=== PATIENT | female | born 1985 | race Caucasian/White ===

== ENCOUNTER 2017-01-08 13:40 | Emergency (ER) | payer MEDICARE, MEDICAID ==
[2017-01-08] MEDS ORDERED: Ketorolac 60 MG/2 ML SDV IM ONE (14:51)
--- NOTE | 2017-01-08 14:57 | EDM.PDOC ---
ED HPI GENERAL MEDICAL PROBLEM - General Chief Complaint: Upper Extremity Injury/Pain Stated Complaint: LEFT SHOULDER PAIN Time Seen by Provider: 01/08/17 14:40 Source of Information: Reports: Patient History Limitations: Reports: No Limitations - History of Present Illness INITIAL COMMENTS - FREE TEXT/NARRATIVE: Kenny presents today for complaints of uncontrolled pain of her left clavicle fracture. She states she ran out of her hydrocodone for pain. She states she took 2 hydrocodone every 4 hours and ran out of pills. She also states she had some hydrocodone left over from when she shattered her leg and took some of that. She denies numbness, tingling to the left shoulder or arm. 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 DRESSING MAKER: Reports: Other (see below) Other Treatments SURGICAL DRESSING MAKER: Sling Left arm Left Shoulder Pain Score (Numeric/FACES): 7 - Related Data Allergies Allergy/AdvReac Type Severity Reaction Status Date / Time bupropion [From Wellbutrin] Allergy Seizure Verified 01/08/17 14:07 paroxetine [From Paxil] Allergy Confusion Verified 01/08/17 14:07 pramipexole [From Mirapex] Allergy Rash Verified 01/08/17 14:07 quetiapine [From Seroquel] Allergy Tachycardia Verified 01/08/17 14:07 venlafaxine [From Effexor] Allergy Cannot Verified 01/08/17 14:07 Remember Home Meds: Home Meds Calcium Carbonate [Calcium] 1 tab PO DAILY 01/08/17 [History] Cholecalciferol (Vitamin D3) [Vitamin D3] 1 cap PO DAILY 01/08/17 [History] ClonazePAM [KlonoPIN] 1 tab PO QID PRN 01/08/17 [History] Cyanocobalamin (Vitamin B-12) [Vitamin B-12] 1 ml IM ASDIRECTED 01/08/17 [ History] Eszopiclone [Lunesta] 1 tab PO BEDTIME 01/08/17 [History] FLUoxetine HCl [Prozac] 60 mg PO BEDTIME 01/08/17 [History] Gabapentin [Neurontin] 300 mg PO BID 01/08/17 [History] Gabapentin [Neurontin] 600 mg PO BEDTIME 01/08/17 [History] Ondansetron [Zofran ODT] 1 tab PO Q12H 01/08/17 [History] Spironolactone [Aldactone] 1 tab PO DAILY 01/08/17 [History] Topiramate [Topamax] 50 mg PO BID 01/08/17 [History] lamoTRIgine [Lamictal] 200 mg PO BID 01/08/17 [History] metFORMIN [Glucophage] 1,000 mg PO BIDMEALS 01/08/17 [History] Past Medical History Gastrointestinal History: Reports: PUD 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 GI Surgical History: Reports: Bariatric Procedure, Cholecystectomy, Hernia Repair/Other, Other (See Below) Other GI Surgeries/Procedures: perforated bowel surgery from ulcers, panniculectomy with revision x 2. Musculoskeletal Surgical History: Reports: Other (See Below) Other Musculoskeletal Surgeries/Procedures:: "rods in Left leg", left hand surgery, 5 foot surgeries d/t flat feet. Social & Family History - Tobacco Use Smoking Status *Q: Former Smoker Used Tobacco, but Quit: Yes Month Tobacco Last Used: october 2016 - Recreational Drug Use Recreational Drug Use: No Review of Systems - Review of Systems Review Of Systems: See Below Constitutional: Reports: No Symptoms Eyes: Reports: No Symptoms Ears: Reports: No Symptoms Nose: Reports: No Symptoms Mouth/Throat: Reports: No Symptoms Respiratory: Denies: Shortness of Breath, Wheezing, Cough, Sputum Cardiovascular: Reports: No Symptoms GI/Abdominal: Reports: No Symptoms Musculoskeletal: Reports: Arm Pain, Other (left shoulder, clavicle pain. Known left clavicle fracture. ) Skin: Reports: No Symptoms Neurological: Reports: No Symptoms Psychiatric: Reports: No Symptoms ED EXAM, GENERAL - Physical Exam Exam: See Below Free Text/Narrative:: Kenny is an alert and oriented 31 year old female presenting today for complaints of pain to left clavicle fracture and not having any more pain medication. General Appearance: Alert, WD/WN, No Apparent Distress Eye Exam: Bilateral Eye: EOMI, Normal Inspection, PERRL Ears: Normal External Exam, Normal Canal, Hearing Grossly Normal, Normal TMs Ear Exam: Bilateral Ear: Auricle Normal, Canal Normal, TM normal Throat/Mouth: Normal Inspection, Normal Lips, Normal Oropharynx, Normal Voice, No Airway Compromise Head: Atraumatic, Normocephalic Neck: Normal Inspection, Supple, Non-Tender, Full Range of Motion. No: Lymphadenopathy (R), Lymphadenopathy (L) Respiratory/Chest: No Respiratory Distress, Lungs Clear, Normal Breath Sounds, No Accessory Muscle Use, Chest Non-Tender Cardiovascular: Normal Peripheral Pulses, Regular Rate, Rhythm, No Edema, No Murmur Peripheral Pulses: 2+: Radial (L), Radial (R) Back Exam: Normal Inspection, Full Range of Motion. No: CVA Tenderness (R), CVA Tenderness (L) Extremities: Normal Inspection, No Pedal Edema, Normal Capillary Refill, Other ( Some tenderness to left clavicle and shoulder, no deformity noted, sensation intact. Patient able to remove sweatshirt unassisted without pain. ) Neurological: Alert, Oriented, CN II-XII Intact, Normal Cognition, Normal Gait, Normal Reflexes, No Motor/Sensory Deficits Psychiatric: Normal Affect, Normal Mood Skin Exam: Warm, Dry, Intact, Normal Color, No Rash Lymphatic: No Adenopathy Course - Vital Signs Last Recorded V/S: Last Vital Signs Temp 36.8 C 01/08/17 14:08 Pulse 109 H 01/08/17 14:08 Resp 16 01/08/17 14:08 BP 137/85 01/08/17 14:08 Pulse Ox 97 01/08/17 14:08 - Orders/Labs/Meds Meds: Medications Discontinued Medications Generic Name Dose Route Start Last Admin Trade Name Freq PRN Reason Stop Dose Admin Ketorolac Tromethamine 60 mg 01/08/17 14:51 01/08/17 15:06 Toradol IM 01/08/17 14:52 60 mg ONETIME ONE Administration - Re-Assessments/Exams Free Text/Narrative Re-Assessment/Exam: 01/08/17 15:00 Reviewed patient's medication list with her as well as appropriate use of hydrocodone for acute pain. She was informed that it is not safe for her to take an opiate medication with her current medications due to risk of respiratory depression and increase of fall risk. Patient verbalizes understanding. Departure - Departure Time of Disposition: 15:14 Disposition: Home, Self-Care 01 Condition: Good Clinical Impression: Shoulder pain, left, History of fracture of clavicle - Discharge Information Instructions: Shoulder Pain Referrals: Ioana Torres MEDICAL CARE EVALUATION SPECIALIST [Primary Care Provider] - Forms: ED Department Discharge Additional Instructions: You are suffering from left shoulder pain with a history of left clavicle fracture that occurred on 12/30/2016. It is not safe for you to have more opiate pain medication due to the current use of clonazepam and lunesta. Use of further opiates puts you at a significant risk for falls, further injury and difficulty breathing. You have been given Toradol 60mg as a muscle injection for the pain. It is best for you to use acetaminophen (tylenol) 1000mg by mouth three times a day and naproxen 500mg twice per day with food. Use of ice, sling and pillows for your comfort. Follow up with your primary care provider for concerns. Return to the emergency room for loss of arm function, numbness or concerns. - Assessment/Plan Assessment:: Shoulder pain History of clavicle fracture - left [place] [employer] accessed, appropriate per patient verbalized use. Plan: Patient suffering from left shoulder pain with a history of left clavicle fracture that occurred on 12/30/2016. It is not safe for her to have more opiate pain medication due to the current use of clonazepam and lunesta. Use of further opiates puts her at a significant risk for falls, further injury and difficulty breathing. She has been given Toradol 60mg IM for the pain. It is best for her to use acetaminophen (tylenol) 1000mg by mouth three times a day and naproxen 500mg twice per day with food. Use of ice, sling and pillows for comfort. Follow up with her primary care provider for concerns. Return to the emergency room for loss of arm function, numbness or concerns. Patient instructed to keep appointment with [facility] on 01/14/2017.
== END 2017-01-08 15:24 | disposition home or self-care (01) ==
LOC: JP.ED 13:40
DX: M25.512 Pain in left shoulder (principal); Z87.81 Personal history of (healed) traumatic fracture; Z79.899 Other long term (current) drug therapy; Z87.891 Personal history of nicotine dependence; Z88.8 Allergy status to other drugs, medicaments and biological substances
CPT/HCPCS: 96372; 99283; J1885

== ENCOUNTER 2017-03-13 09:55 | Inpatient (IN) | payer MEDICARE, MEDICAID ==
[2017-03-13] MEDS ORDERED: Ondansetron 4 MG/2 ML SDV IVPUSH ONE ×2 (10:08→13:15)
[2017-03-13] MEDS ORDERED: Sodium Chloride 0.9% 1,000 ML IV SCH ×3 (10:15→13:00)
--- NOTE | 2017-03-13 10:17 | EDM.PDOC ---
ED HPI GENERAL MEDICAL PROBLEM - General Chief Complaint: Chemical Exposure Stated Complaint: MEDICAL VIA [facility] Time Seen by Provider: 03/13/17 10:10 Source of Information: Reports: Patient, EMS Notes Reviewed History Limitations: Reports: No Limitations - History of Present Illness INITIAL COMMENTS - FREE TEXT/NARRATIVE: pt arrived with a history of drinking hand santizer, body sprays and mouth wash. She is confused and obviously intoxicated. Onset: Today Duration: Hour(s): Location: Reports: Head, Other (pt is vomiting and she is quite confused. ) Associated Symptoms: Reports: Weakness, Other (confusion) - Related Data Allergies Allergy/AdvReac Type Severity Reaction Status Date / Time bupropion [From Wellbutrin] Allergy Seizure Verified 01/08/17 14:07 paroxetine [From Paxil] Allergy Confusion Verified 01/08/17 14:07 pramipexole [From Mirapex] Allergy Rash Verified 01/08/17 14:07 quetiapine [From Seroquel] Allergy Tachycardia Verified 01/08/17 14:07 venlafaxine [From Effexor] Allergy Cannot Verified 01/08/17 14:07 Remember Home Meds: Home Meds Calcium Carbonate [Calcium] 1 tab PO DAILY 01/08/17 [History] Cholecalciferol (Vitamin D3) [Vitamin D3] 1 cap PO DAILY 01/08/17 [History] ClonazePAM [KlonoPIN] 1 tab PO QID PRN 01/08/17 [History] Cyanocobalamin (Vitamin B-12) [Vitamin B-12] 1 ml IM ASDIRECTED 01/08/17 [ History] Eszopiclone [Lunesta] 1 tab PO BEDTIME 01/08/17 [History] FLUoxetine HCl [Prozac] 60 mg PO BEDTIME 01/08/17 [History] Gabapentin [Neurontin] 300 mg PO BID 01/08/17 [History] Gabapentin [Neurontin] 600 mg PO BEDTIME 01/08/17 [History] Ondansetron [Zofran ODT] 1 tab PO Q12H 01/08/17 [History] Spironolactone [Aldactone] 1 tab PO DAILY 01/08/17 [History] Topiramate [Topamax] 50 mg PO BID 01/08/17 [History] lamoTRIgine [Lamictal] 200 mg PO BID 01/08/17 [History] metFORMIN [Glucophage] 1,000 mg PO BIDMEALS 01/08/17 [History] Past Medical History Gastrointestinal History: Reports: PUD 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 GI Surgical History: Reports: Bariatric Procedure, Cholecystectomy, Hernia Repair/Other, Other (See Below) Other GI Surgeries/Procedures: perforated bowel surgery from ulcers, panniculectomy with revision x 2. Musculoskeletal Surgical History: Reports: Other (See Below) Other Musculoskeletal Surgeries/Procedures:: "rods in Left leg", left hand surgery, 5 foot surgeries d/t flat feet. Social & Family History - Tobacco Use Smoking Status *Q: Former Smoker Used Tobacco, but Quit: Yes Month Tobacco Last Used: october 2016 - Recreational Drug Use Recreational Drug Use: No ED ROS GENERAL - Review of Systems Review Of Systems: See Below Constitutional: Reports: No Symptoms HEENT: Reports: No Symptoms Respiratory: Reports: No Symptoms Cardiovascular: Reports: No Symptoms Endocrine: Reports: No Symptoms GI/Abdominal: Reports: No Symptoms : Reports: No Symptoms Musculoskeletal: Reports: No Symptoms Skin: Reports: No Symptoms Neurological: Reports: Confusion, Other (pt does appear intoxicated. ) Psychiatric: Reports: Other (pt is very obtunded and we are not able to get a good history. ) ED EXAM, BURN/SMOKE INHALATION - Physical Exam Exam: See Below Text/Narrative:: pt arrived with a history of being quite confused. 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 Pt was somewhat obtunded at first but then she became agitated. She has been bolused with 2 liters of fluid and is on her third. Her lactic acid was elevated and after hydration that was checked and it did rise. Exam Limited By: No Limitations General Appearance: Alert, Anxious, Other (pt was very agitated. ) Ears (Abbreviated): Normal TMs Mouth/Throat: No Symptoms Reported Head: No Symptoms Neck: No Symptoms Respiratory: No Respiratory Distress Cardiovascular: Regular Rate, Rhythm, Tachycardia GI/Abdominal: Soft, Non-Tender Rectal Exam: Deferred Back Exam: Normal Inspection Extremities: Normal Inspection Neurological: Alert, Oriented, Normal Cognition Psychiatric: Anxious, Other (pt hs been very anxious. ) Course - Vital Signs Last Recorded V/S: Last Vital Signs Temp 36.1 C 03/13/17 10:13 Pulse 70 03/13/17 11:05 Resp 16 03/13/17 11:05 BP 113/71 03/13/17 11:05 Pulse Ox 96 03/13/17 11:05 - Orders/Labs/Meds Orders: Active Orders 24 hr Category Date Time Status HCG QUALITATIVE,URINE [URCHEM] Stat Lab 03/13/17 13:18 Uncollected Magnesium Sulfate/Water [Magnesium Sulfate 2 GM in Med 03/13/17 11:30 Active Water 50 ML] 2 gm Premix Bag 1 bag IV Q6H Sodium Chloride 0.9% [Normal Saline] 1,000 ml Med 03/13/17 10:15 Active IV ASDIRECTED Sodium Chloride 0.9% [Normal Saline] 1,000 ml Med 03/13/17 11:30 Active IV ASDIRECTED Sodium Chloride 0.9% [Normal Saline] 1,000 ml Med 03/13/17 13:00 Active IV ASDIRECTED Medication Orders Sodium Chloride (Normal Saline) 1,000 mls @ 999 mls/hr IV ASDIRECTED CORINE Last Admin: 03/13/17 10:46 Dose: 999 mls/hr Magnesium Sulfate 2 gm/ Premix 50 mls @ 25 mls/hr IV Q6H [facility] Stop: 03/13/17 19:29 Last Admin: 03/13/17 11:19 Dose: 25 mls/hr Sodium Chloride (Normal Saline) 1,000 mls @ 999 mls/hr IV ASDIRECTED CORINE Last Admin: 03/13/17 12:02 Dose: 999 mls/hr Sodium Chloride (Normal Saline) 1,000 mls @ 500 mls/hr IV ASDIRECTED CORINE Labs: Laboratory Tests 03/13/17 03/13/17 03/13/17 Range/Units 10:10 10:15 10:15 WBC 12.3 H (4.5-11.0) K/uL RBC 4.45 (3.30-5.50) M/uL Hgb 13.8 (12.0-15.0) g/dL Hct 40.1 (36.0-48.0) % MCV 90 (80-98) fL MCH 31 (27-31) pg MCHC 34 (32-36) % Plt Count 261 (150-400) K/uL Neut % (Auto) 81 H (36-66) % Lymph % (Auto) 15 L (24-44) % [place] % (Auto) 4 (2-6) % Eos % (Auto) 0 L (2-4) % Baso % (Auto) 0 (0-1) % Puncture Site ABG pH (7.350-7.450) ABG pCO2 (35.0-42.0) mmHg ABG pO2 (75.0-100.0) mmHg ABG HCO3 (22.0-26.0) mmol/L ABG Total CO2 (21.0-25.0) mmol/L ABG O2 Saturation (95.0-98.0) % ABG O2 Content (15.0-23.0) %vol ABG Base Excess mm/L ABG Hemoglobin (12.0-16.0) g/dL ABG Oxyhemoglobin % ABG Carboxyhemoglobin (0.0-1.6) % ABG Methemoglobin % [place] Test O2 Delivery Device Sodium (140-148) mmol/L Potassium (3.6-5.2) mmol/L Chloride (100-108) mmol/L Carbon Dioxide (21-32) mmol/L Anion Gap (5.0-14.0) mmol/L BUN (7-18) mg/dL Creatinine (0.6-1.0) mg/dL Est Cr Clr Drug Dosing mL/min Estimated GFR (MDRD) (>60) Glucose (74-106) mg/dL Lactic Acid (0.4-2.0) mmol/L Calcium (8.5-10.1) mg/dL Magnesium 1.5 L (1.8-2.4) mg/dL Total Bilirubin (0.2-1.0) mg/dL AST (15-37) U/L ALT (12-78) U/L Alkaline Phosphatase (46-116) U/L Total Protein (6.4-8.2) g/dL Albumin (3.4-5.0) g/dL Globulin (2.3-3.5) g/dL Albumin/Globulin Ratio (1.2-2.2) Urine Color Urine Appearance Urine pH (4.5-8.0) Ur Specific [place]gan (1.008-1.030) Urine Protein (NEGATIVE) mg/dL Urine Glucose (UA) (NEGATIVE) mg/dL Urine Ketones (NEGATIVE) mg/dL Urine Occult Blood (NEGATIVE) Urine Nitrite (NEGATIVE) Urine Bilirubin (NEGATIVE) Urine Urobilinogen (NORMAL) mg/dL Ur Leukocyte Esterase (NEGATIVE) Urine RBC (0-5) Urine WBC (0-5) Ur Epithelial Cells Amorphous Sediment Urine Bacteria Urine Mucus Urine Opiates Screen (NEGATIVE) Ur Oxycodone Screen (NEGATIVE) Urine Methadone Screen (NEGATIVE) Ur Propoxyphene Screen (NEGATIVE) Ur Barbiturates Screen (NEGATIVE) Ur Tricyclics Screen (NEGATIVE) Ur Phencyclidine Scrn (NEGATIVE) Ur Amphetamine Screen (NEGATIVE) U Methamphetamines Scrn (NEGATIVE) Urine MDMA Screen (NEGATIVE) U Benzodiazepines Scrn (NEGATIVE) U Cocaine Metab Screen (NEGATIVE) U Marijuana (THC) Screen (NEGATIVE) Ethyl Alcohol 285 mg/dL 03/13/17 03/13/17 03/13/17 Range/Units 10:15 11:25 11:25 WBC (4.5-11.0) K/uL RBC (3.30-5.50) M/uL Hgb (12.0-15.0) g/dL Hct (36.0-48.0) % MCV (80-98) fL MCH (27-31) pg MCHC (32-36) % Plt Count (150-400) K/uL Neut % (Auto) (36-66) % Lymph % (Auto) (24-44) % [place] % (Auto) (2-6) % Eos % (Auto) (2-4) % Baso % (Auto) (0-1) % Puncture Site Rt radial ABG pH 7.384 (7.350-7.450) ABG pCO2 27.7 L (35.0-42.0) mmHg ABG pO2 88.3 (75.0-100.0) mmHg ABG HCO3 16.2 L (22.0-26.0) mmol/L ABG Total CO2 14.5 L (21.0-25.0) mmol/L ABG O2 Saturation 95.2 (95.0-98.0) % ABG O2 Content 17.0 (15.0-23.0) %vol ABG Base Excess -7.2 mm/L ABG Hemoglobin 12.8 (12.0-16.0) g/dL ABG Oxyhemoglobin 93.8 % ABG Carboxyhemoglobin 0.6 (0.0-1.6) % ABG Methemoglobin 0.9 % [place] Test Pass O2 Delivery Device Nasal cannula Sodium 138 L (140-148) mmol/L Potassium 3.2 L (3.6-5.2) mmol/L Chloride 99 L (100-108) mmol/L Carbon Dioxide 19 L (21-32) mmol/L Anion Gap 23.2 H (5.0-14.0) mmol/L BUN 9 (7-18) mg/dL Creatinine 0.9 (0.6-1.0) mg/dL Est Cr Clr Drug Dosing 87.27 mL/min Estimated GFR (MDRD) > 60 (>60) Glucose 103 (74-106) mg/dL Lactic Acid 4.7 H (0.4-2.0) mmol/L Calcium 7.8 L (8.5-10.1) mg/dL Magnesium (1.8-2.4) mg/dL Total Bilirubin 0.4 (0.2-1.0) mg/dL AST 35 (15-37) U/L ALT 22 (12-78) U/L Alkaline Phosphatase 105 (46-116) U/L Total Protein 6.0 L (6.4-8.2) g/dL Albumin 3.0 L (3.4-5.0) g/dL Globulin 3.0 (2.3-3.5) g/dL Albumin/Globulin Ratio 1.0 L (1.2-2.2) Urine Color Urine Appearance Urine pH (4.5-8.0) Ur Specific [place] (1.008-1.030) Urine Protein (NEGATIVE) mg/dL Urine Glucose (UA) (NEGATIVE) mg/dL Urine Ketones (NEGATIVE) mg/dL Urine Occult Blood (NEGATIVE) Urine Nitrite (NEGATIVE) Urine Bilirubin (NEGATIVE) Urine Urobilinogen (NORMAL) mg/dL Ur Leukocyte Esterase (NEGATIVE) Urine RBC (0-5) Urine WBC (0-5) Ur Epithelial Cells Amorphous Sediment Urine Bacteria Urine Mucus Urine Opiates Screen (NEGATIVE) Ur Oxycodone Screen (NEGATIVE) Urine Methadone Screen (NEGATIVE) Ur Propoxyphene Screen (NEGATIVE) Ur Barbiturates Screen (NEGATIVE) Ur Tricyclics Screen (NEGATIVE) Ur Phencyclidine Scrn (NEGATIVE) Ur Amphetamine Screen (NEGATIVE) U Methamphetamines Scrn (NEGATIVE) Urine MDMA Screen (NEGATIVE) U Benzodiazepines Scrn (NEGATIVE) U Cocaine Metab Screen (NEGATIVE) U Marijuana (THC) Screen (NEGATIVE) Ethyl Alcohol mg/dL 03/13/17 03/13/17 03/13/17 Range/Units 12:45 12:45 13:25 WBC (4.5-11.0) K/uL RBC (3.30-5.50) M/uL Hgb (12.0-15.0) g/dL Hct (36.0-48.0) % MCV (80-98) fL MCH (27-31) pg MCHC (32-36) % Plt Count (150-400) K/uL Neut % (Auto) (36-66) % Lymph % (Auto) (24-44) % [place] % (Auto) (2-6) % Eos % (Auto) (2-4) % Baso % (Auto) (0-1) % Puncture Site ABG pH (7.350-7.450) ABG pCO2 (35.0-42.0) mmHg ABG pO2 (75.0-100.0) mmHg ABG HCO3 (22.0-26.0) mmol/L ABG Total CO2 (21.0-25.0) mmol/L ABG O2 Saturation (95.0-98.0) % ABG O2 Content (15.0-23.0) %vol ABG Base Excess mm/L ABG Hemoglobin (12.0-16.0) g/dL ABG Oxyhemoglobin % ABG Carboxyhemoglobin (0.0-1.6) % ABG Methemoglobin % [place] Test O2 Delivery Device Sodium (140-148) mmol/L Potassium (3.6-5.2) mmol/L Chloride (100-108) mmol/L Carbon Dioxide (21-32) mmol/L Anion Gap (5.0-14.0) mmol/L BUN (7-18) mg/dL Creatinine (0.6-1.0) mg/dL Est Cr Clr Drug Dosing mL/min Estimated GFR (MDRD) (>60) Glucose (74-106) mg/dL Lactic Acid 5.2 H (0.4-2.0) mmol/L Calcium (8.5-10.1) mg/dL Magnesium (1.8-2.4) mg/dL Total Bilirubin (0.2-1.0) mg/dL AST (15-37) U/L ALT (12-78) U/L Alkaline Phosphatase (46-116) U/L Total Protein (6.4-8.2) g/dL Albumin (3.4-5.0) g/dL Globulin (2.3-3.5) g/dL Albumin/Globulin Ratio (1.2-2.2) Urine Color Yellow Urine Appearance Cloudy Urine pH 5.0 (4.5-8.0) Ur Specific [place] 1.015 (1.008-1.030) Urine Protein Negative (NEGATIVE) mg/dL Urine Glucose (UA) Normal (NEGATIVE) mg/dL Urine Ketones 50 H (NEGATIVE) mg/dL Urine Occult Blood Negative (NEGATIVE) Urine Nitrite Negative (NEGATIVE) Urine Bilirubin Negative (NEGATIVE) Urine Urobilinogen Normal (NORMAL) mg/dL Ur Leukocyte Esterase Negative (NEGATIVE) Urine RBC 0-5 (0-5) Urine WBC 0-5 (0-5) Ur Epithelial Cells Moderate Amorphous Sediment Not seen Urine Bacteria Not seen Urine Mucus Not seen Urine Opiates Screen Negative (NEGATIVE) Ur Oxycodone Screen Negative (NEGATIVE) Urine Methadone Screen Negative (NEGATIVE) Ur Propoxyphene Screen Negative (NEGATIVE) Ur Barbiturates Screen Negative (NEGATIVE) Ur Tricyclics Screen Negative (NEGATIVE) Ur Phencyclidine Scrn Negative (NEGATIVE) Ur Amphetamine Screen Negative (NEGATIVE) U Methamphetamines Scrn Negative (NEGATIVE) Urine MDMA Screen Negative (NEGATIVE) U Benzodiazepines Scrn Negative (NEGATIVE) U Cocaine Metab Screen Negative (NEGATIVE) U Marijuana (THC) Screen Negative (NEGATIVE) Ethyl Alcohol mg/dL Meds: Medications Generic Name Dose Route Start Last Admin Trade Name Freq PRN Reason Stop Dose Admin Sodium Chloride 1,000 mls @ 999 mls/hr 03/13/17 10:15 12/16/17 10:46 Normal Saline IV 999 mls/hr ASDIRECTED CORINE Administration Magnesium Sulfate 2 gm/ Premix 50 mls @ 25 mls/hr 03/13/17 11:30 03/13/17 11: 19 IV 03/13/17 19:29 25 mls/hr Q6H CORINE Administration Sodium Chloride 1,000 mls @ 999 mls/hr 03/13/17 11:30 03/13/17 12:02 Normal Saline IV 999 mls/hr ASDIRECTED CORINE Administration Sodium Chloride 1,000 mls @ 500 mls/hr 03/13/17 13:00 Normal Saline IV ASDIRECTED CORINE Discontinued Medications Generic Name Dose Route Start Last Admin Trade Name Freq PRN Reason Stop Dose Admin Lorazepam 0.5 mg 03/13/17 13:33 03/13/17 13:41 Ativan IVPUSH 03/13/17 13:34 0.5 mg ONETIME ONE Administration Ondansetron HCl 4 mg 03/13/17 10:08 03/13/17 10:46 Zofran IVPUSH 03/13/17 10:09 4 mg ONETIME ONE Administration Ondansetron HCl 4 mg 03/13/17 13:15 03/13/17 13:21 Zofran IVPUSH 03/13/17 13:16 4 mg ONETIME ONE Administration Potassium Chloride 40 meq 03/13/17 11:08 03/13/17 11:19 Klor-Con M20 PO 03/13/17 11:09 40 meq ONETIME ONE Administration - Re-Assessments/Exams Free Text/Narrative Re-Assessment/Exam: 03/13/17 14:00 pt had an elevated lactic acid and a second was checke d after hydration. The second was greater than 5. Will admit for observation. Departure - Departure Time of Disposition: 14:01 Disposition: Admitted As Inpatient 65 Condition: Fair Clinical Impression: Alcohol ingestion, Elevated lactic acid level - Discharge Information Referrals: PCP,None [Primary Care Provider] - Forms: ED Department Discharge Care Plan Goals: admit to Dr paris. - My Orders Last 24 Hours: My Active Orders 03/13/17 10:15 Sodium Chloride 0.9% [Normal Saline] 1,000 ml IV ASDIRECTED 03/13/17 11:30 Sodium Chloride 0.9% [Normal Saline] 1,000 ml IV ASDIRECTED 03/13/17 13:00 Sodium Chloride 0.9% [Normal Saline] 1,000 ml IV ASDIRECTED 03/13/17 13:18 HCG QUALITATIVE,URINE [URCHEM] Stat - Assessment/Plan Last 24 Hours: My Active Orders 03/13/17 10:15 Sodium Chloride 0.9% [Normal Saline] 1,000 ml IV ASDIRECTED 03/13/17 11:30 Sodium Chloride 0.9% [Normal Saline] 1,000 ml IV ASDIRECTED 03/13/17 13:00 Sodium Chloride 0.9% [Normal Saline] 1,000 ml IV ASDIRECTED 03/13/17 13:18 HCG QUALITATIVE,URINE [URCHEM] Stat
[2017-03-13] MEDS ORDERED: Potassium Chloride 20 MEQ Tab.ER PO ONE (11:08)
[2017-03-13] MEDS: Magnesium Sulfate/Water 2 GM in Premix Bag 1 BAG IV SCH ×2 (11:19→18:00)
[2017-03-13] MEDS ORDERED: LORazepam 2 MG/ML MDV IVPUSH ONE ×2 (13:33→14:40)
--- NOTE | 2017-03-13 14:46 | PCM.HP ---
H&P History of Present Illness - General Date of Service: 03/13/17 Admit Problem/Dx: Admission Diagnosis/Problem Admission Diagnosis/Problem Alcohol withdrawal syndrome Source of Information: Patient, Family, Provider History Limitations: Reports: Other (Agitation) - History of Present Illness Initial Comments - Free Text/Narative: Kenny is a 31-year-old woman who is admitted through the emergency department with alcohol withdrawal symptoms. She has a long-standing history of alcohol abuse and apparently had been abstinent from alcohol use for the past few months. She started drinking alcohol again approximately one week ago. Apparently this morning was looking for things that entertained alcohol to drink and apparently consumes some body wash as well as hand cleanser. She was minimally responsive when she arrived but fairly quickly after arrival in the emergency department became very agitated. Alcohol level was 285, poison control was contacted concerning other ingestions and recommended that the patient be managed as an alcohol withdrawal. 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 She is very nauseated and somewhat agitated , unable to provide significant history. Most of history was obtained from the patient's mother who is present. - Related Data Allergies/Adverse Reactions: Allergies Allergy/AdvReac Type Severity Reaction Status Date / Time bupropion [From Wellbutrin] Allergy Seizure Verified 01/08/17 14:07 paroxetine [From Paxil] Allergy Confusion Verified 01/08/17 14:07 pramipexole [From Mirapex] Allergy Rash Verified 01/08/17 14:07 quetiapine [From Seroquel] Allergy Tachycardia Verified 01/08/17 14:07 venlafaxine [From Effexor] Allergy Cannot Verified 01/08/17 14:07 Remember Home Medications: Home Meds Calcium Carbonate [Calcium] 1 tab PO DAILY 01/08/17 [History] Cholecalciferol (Vitamin D3) [Vitamin D3] 1 cap PO DAILY 01/08/17 [History] ClonazePAM [KlonoPIN] 1 tab PO QID PRN 01/08/17 [History] Cyanocobalamin (Vitamin B-12) [Vitamin B-12] 1 ml IM ASDIRECTED 01/08/17 [ History] Eszopiclone [Lunesta] 1 tab PO BEDTIME 01/08/17 [History] FLUoxetine HCl [Prozac] 60 mg PO BEDTIME 01/08/17 [History] Gabapentin [Neurontin] 300 mg PO BID 01/08/17 [History] Gabapentin [Neurontin] 600 mg PO BEDTIME 01/08/17 [History] Ondansetron [Zofran ODT] 1 tab PO Q12H 01/08/17 [History] Spironolactone [Aldactone] 1 tab PO DAILY 01/08/17 [History] Topiramate [Topamax] 50 mg PO BID 01/08/17 [History] lamoTRIgine [Lamictal] 200 mg PO BID 01/08/17 [History] metFORMIN [Glucophage] 1,000 mg PO BIDMEALS 01/08/17 [History] Past Medical History Gastrointestinal History: Reports: [employer] History: Reports: Polycystic Ovaries Musculoskeletal History: Reports: Back Pain, Chronic, Fracture, Osteoporosis Neurological History: Reports: Head Trauma, Migraines, Seizure, Other (See Below ) Other Neuro History: epilepsy Psychiatric History: Reports: ADHD, Addiction, Anxiety, Depression Hematologic History: Reports: B12 Deficiency - Past Surgical History HEENT Surgical History: Reports: Adenoidectomy, Myringotomy w Tube(s), Oral Surgery, Other (See Below) Other HEENT Surgeries/Procedures: rhinoplasty, jaw surgery. GI Surgical History: Reports: Bariatric Procedure, Cholecystectomy, Hernia Repair/Other, Other (See Below) Other GI Surgeries/Procedures: perforated bowel surgery from ulcers, panniculectomy with revision x 2. Musculoskeletal Surgical History: Reports: Other (See Below) Other Musculoskeletal Surgeries/Procedures:: "rods in Left leg", left hand surgery, 5 foot surgeries d/t flat feet. Social & Family History - Tobacco Use Smoking Status *Q: Former Smoker Years of Tobacco use: 10 Packs/Tins Daily: 0.5 Used Tobacco, but Quit: Yes Month Tobacco Last Used: october 2016 - Alcohol Use Date of Last Drink: 03/13/17 Time of Last Drink: 09:30 - Recreational Drug Use Recreational Drug Use: No H&P Review of Systems - Review of Systems: Review Of Systems: Unable To Obtain General: Reports: ROS unobtainable (Agitation and nausea) Exam - Exam Exam: See Below - Vital Signs Vital Signs: Last Vital Signs Temp 97.0 F 03/13/17 10:13 Pulse 70 03/13/17 11:05 Resp 16 03/13/17 11:05 BP 113/71 03/13/17 11:05 Pulse Ox 96 03/13/17 11:05 Weight: 418 lb 14.052 oz - Exam General: Lethargic, Other (Agitated) HEENT: Conjunctiva Clear, Hearing Intact, Mucosa Moist & Aubrey, Normal Nasal Septum, Posterior Pharynx Clear, Pupils Equal Neck: Supple, Trachea Midline Lungs: Clear to Auscultation, Normal Respiratory Effort Cardiovascular: Regular Rate, Regular Rhythm, Normal S1, Normal S2. No: Systolic Murmur, Diastolic Murmur GI/Abdominal Exam: Soft, Non-Tender, No Organomegaly, No Distention Back Exam: Normal Inspection, Full Range of Motion Extremities: Normal Inspection, Non-Tender, No Pedal Edema Skin: Warm, Dry, Intact Neurological: Strength Equal Bilateral, Normal Tone. No: Focal Deficit Psychiatric: Anxious, Agitated - Patient Data Lab Results Last 24 hrs: Laboratory Results - last 24 hr 03/13/17 03/13/17 03/13/17 Range/Units 10:10 10:15 10:15 WBC 12.3 H (4.5-11.0) K/uL RBC 4.45 (3.30-5.50) M/uL Hgb 13.8 (12.0-15.0) g/dL Hct 40.1 (36.0-48.0) % MCV 90 (80-98) fL MCH 31 (27-31) pg MCHC 34 (32-36) % Plt Count 261 (150-400) K/uL Neut % (Auto) 81 H (36-66) % Lymph % (Auto) 15 L (24-44) % Upson % (Auto) 4 (2-6) % Eos % (Auto) 0 L (2-4) % Baso % (Auto) 0 (0-1) % Puncture Site ABG pH (7.350-7.450) ABG pCO2 (35.0-42.0) mmHg ABG pO2 (75.0-100.0) mmHg ABG HCO3 (22.0-26.0) mmol/L ABG Total CO2 (21.0-25.0) mmol/L ABG O2 Saturation (95.0-98.0) % ABG O2 Content (15.0-23.0) %vol ABG Base Excess mm/L ABG Hemoglobin (12.0-16.0) g/dL ABG Oxyhemoglobin % ABG Carboxyhemoglobin (0.0-1.6) % ABG Methemoglobin % Farooq Test O2 Delivery Device Sodium (140-148) mmol/L Potassium (3.6-5.2) mmol/L Chloride (100-108) mmol/L Carbon Dioxide (21-32) mmol/L Anion Gap (5.0-14.0) mmol/L BUN (7-18) mg/dL Creatinine (0.6-1.0) mg/dL Est Cr Clr Drug Dosing mL/min Estimated GFR (MDRD) (>60) Glucose (74-106) mg/dL Lactic Acid (0.4-2.0) mmol/L Calcium (8.5-10.1) mg/dL Magnesium 1.5 L (1.8-2.4) mg/dL Total Bilirubin (0.2-1.0) mg/dL AST (15-37) U/L ALT (12-78) U/L Alkaline Phosphatase (46-116) U/L Total Protein (6.4-8.2) g/dL Albumin (3.4-5.0) g/dL Globulin (2.3-3.5) g/dL Albumin/Globulin Ratio (1.2-2.2) Urine Color Urine Appearance Urine pH (4.5-8.0) Ur Specific Sieper (1.008-1.030) Urine Protein (NEGATIVE) mg/dL Urine Glucose (UA) (NEGATIVE) mg/dL Urine Ketones (NEGATIVE) mg/dL Urine Occult Blood (NEGATIVE) Urine Nitrite (NEGATIVE) Urine Bilirubin (NEGATIVE) Urine Urobilinogen (NORMAL) mg/dL Ur Leukocyte Esterase (NEGATIVE) Urine RBC (0-5) Urine WBC (0-5) Ur Epithelial Cells Amorphous Sediment Urine Bacteria Urine Mucus Urine HCG, Qual Urine Opiates Screen (NEGATIVE) Ur Oxycodone Screen (NEGATIVE) Urine Methadone Screen (NEGATIVE) Ur Propoxyphene Screen (NEGATIVE) Ur Barbiturates Screen (NEGATIVE) Ur Tricyclics Screen (NEGATIVE) Ur Phencyclidine Scrn (NEGATIVE) Ur Amphetamine Screen (NEGATIVE) U Methamphetamines Scrn (NEGATIVE) Urine MDMA Screen (NEGATIVE) U Benzodiazepines Scrn (NEGATIVE) U Cocaine Metab Screen (NEGATIVE) U Marijuana (THC) Screen (NEGATIVE) Ethyl Alcohol 285 mg/dL 03/13/17 03/13/17 03/13/17 Range/Units 10:15 11:25 11:25 WBC (4.5-11.0) K/uL RBC (3.30-5.50) M/uL Hgb (12.0-15.0) g/dL Hct (36.0-48.0) % MCV (80-98) fL MCH (27-31) pg MCHC (32-36) % Plt Count (150-400) K/uL Neut % (Auto) (36-66) % Lymph % (Auto) (24-44) % Upson % (Auto) (2-6) % Eos % (Auto) (2-4) % Baso % (Auto) (0-1) % Puncture Site Rt radial ABG pH 7.384 (7.350-7.450) ABG pCO2 27.7 L (35.0-42.0) mmHg ABG pO2 88.3 (75.0-100.0) mmHg ABG HCO3 16.2 L (22.0-26.0) mmol/L ABG Total CO2 14.5 L (21.0-25.0) mmol/L ABG O2 Saturation 95.2 (95.0-98.0) % ABG O2 Content 17.0 (15.0-23.0) %vol ABG Base Excess -7.2 mm/L ABG Hemoglobin 12.8 (12.0-16.0) g/dL ABG Oxyhemoglobin 93.8 % ABG Carboxyhemoglobin 0.6 (0.0-1.6) % ABG Methemoglobin 0.9 % Farooq Test Pass O2 Delivery Device Nasal cannula Sodium 138 L (140-148) mmol/L Potassium 3.2 L (3.6-5.2) mmol/L Chloride 99 L (100-108) mmol/L Carbon Dioxide 19 L (21-32) mmol/L Anion Gap 23.2 H (5.0-14.0) mmol/L BUN 9 (7-18) mg/dL Creatinine 0.9 (0.6-1.0) mg/dL Est Cr Clr Drug Dosing 87.27 mL/min Estimated GFR (MDRD) > 60 (>60) Glucose 103 (74-106) mg/dL Lactic Acid 4.7 H (0.4-2.0) mmol/L Calcium 7.8 L (8.5-10.1) mg/dL Magnesium (1.8-2.4) mg/dL Total Bilirubin 0.4 (0.2-1.0) mg/dL AST 35 (15-37) U/L ALT 22 (12-78) U/L Alkaline Phosphatase 105 (46-116) U/L Total Protein 6.0 L (6.4-8.2) g/dL Albumin 3.0 L (3.4-5.0) g/dL Globulin 3.0 (2.3-3.5) g/dL Albumin/Globulin Ratio 1.0 L (1.2-2.2) Urine Color Urine Appearance Urine pH (4.5-8.0) Ur Specific Sieper (1.008-1.030) Urine Protein (NEGATIVE) mg/dL Urine Glucose (UA) (NEGATIVE) mg/dL Urine Ketones (NEGATIVE) mg/dL Urine Occult Blood (NEGATIVE) Urine Nitrite (NEGATIVE) Urine Bilirubin (NEGATIVE) Urine Urobilinogen (NORMAL) mg/dL Ur Leukocyte Esterase (NEGATIVE) Urine RBC (0-5) Urine WBC (0-5) Ur Epithelial Cells Amorphous Sediment Urine Bacteria Urine Mucus Urine HCG, Qual Urine Opiates Screen (NEGATIVE) Ur Oxycodone Screen (NEGATIVE) Urine Methadone Screen (NEGATIVE) Ur Propoxyphene Screen (NEGATIVE) Ur Barbiturates Screen (NEGATIVE) Ur Tricyclics Screen (NEGATIVE) Ur Phencyclidine Scrn (NEGATIVE) Ur Amphetamine Screen (NEGATIVE) U Methamphetamines Scrn (NEGATIVE) Urine MDMA Screen (NEGATIVE) U Benzodiazepines Scrn (NEGATIVE) U Cocaine Metab Screen (NEGATIVE) U Marijuana (THC) Screen (NEGATIVE) Ethyl Alcohol mg/dL 03/13/17 03/13/17 03/13/17 Range/Units 12:45 12:45 13:25 WBC (4.5-11.0) K/uL RBC (3.30-5.50) M/uL Hgb (12.0-15.0) g/dL Hct (36.0-48.0) % MCV (80-98) fL MCH (27-31) pg MCHC (32-36) % Plt Count (150-400) K/uL Neut % (Auto) (36-66) % Lymph % (Auto) (24-44) % Upson % (Auto) (2-6) % Eos % (Auto) (2-4) % Baso % (Auto) (0-1) % Puncture Site ABG pH (7.350-7.450) ABG pCO2 (35.0-42.0) mmHg ABG pO2 (75.0-100.0) mmHg ABG HCO3 (22.0-26.0) mmol/L ABG Total CO2 (21.0-25.0) mmol/L ABG O2 Saturation (95.0-98.0) % ABG O2 Content (15.0-23.0) %vol ABG Base Excess mm/L ABG Hemoglobin (12.0-16.0) g/dL ABG Oxyhemoglobin % ABG Carboxyhemoglobin (0.0-1.6) % ABG Methemoglobin % Farooq Test O2 Delivery Device Sodium (140-148) mmol/L Potassium (3.6-5.2) mmol/L Chloride (100-108) mmol/L Carbon Dioxide (21-32) mmol/L Anion Gap (5.0-14.0) mmol/L BUN (7-18) mg/dL Creatinine (0.6-1.0) mg/dL Est Cr Clr Drug Dosing mL/min Estimated GFR (MDRD) (>60) Glucose (74-106) mg/dL Lactic Acid 5.2 H (0.4-2.0) mmol/L Calcium (8.5-10.1) mg/dL Magnesium (1.8-2.4) mg/dL Total Bilirubin (0.2-1.0) mg/dL AST (15-37) U/L ALT (12-78) U/L Alkaline Phosphatase (46-116) U/L Total Protein (6.4-8.2) g/dL Albumin (3.4-5.0) g/dL Globulin (2.3-3.5) g/dL Albumin/Globulin Ratio (1.2-2.2) Urine Color Yellow Urine Appearance Cloudy Urine pH 5.0 (4.5-8.0) Ur Specific Sieper 1.015 (1.008-1.030) Urine Protein Negative (NEGATIVE) mg/dL Urine Glucose (UA) Normal (NEGATIVE) mg/dL Urine Ketones 50 H (NEGATIVE) mg/dL Urine Occult Blood Negative (NEGATIVE) Urine Nitrite Negative (NEGATIVE) Urine Bilirubin Negative (NEGATIVE) Urine Urobilinogen Normal (NORMAL) mg/dL Ur Leukocyte Esterase Negative (NEGATIVE) Urine RBC 0-5 (0-5) Urine WBC 0-5 (0-5) Ur Epithelial Cells Moderate Amorphous Sediment Not seen Urine Bacteria Not seen Urine Mucus Not seen Urine HCG, Qual Urine Opiates Screen Negative (NEGATIVE) Ur Oxycodone Screen Negative (NEGATIVE) Urine Methadone Screen Negative (NEGATIVE) Ur Propoxyphene Screen Negative (NEGATIVE) Ur Barbiturates Screen Negative (NEGATIVE) Ur Tricyclics Screen Negative (NEGATIVE) Ur Phencyclidine Scrn Negative (NEGATIVE) Ur Amphetamine Screen Negative (NEGATIVE) U Methamphetamines Scrn Negative (NEGATIVE) Urine MDMA Screen Negative (NEGATIVE) U Benzodiazepines Scrn Negative (NEGATIVE) U Cocaine Metab Screen Negative (NEGATIVE) U Marijuana (THC) Screen Negative (NEGATIVE) Ethyl Alcohol mg/dL 12//17 Range/Units 14:10 WBC (4.5-11.0) K/uL RBC (3.30-5.50) M/uL Hgb (12.0-15.0) g/dL Hct (36.0-48.0) % MCV (80-98) fL MCH (27-31) pg MCHC (32-36) % Plt Count (150-400) K/uL Neut % (Auto) (36-66) % Lymph % (Auto) (24-44) % Upson % (Auto) (2-6) % Eos % (Auto) (2-4) % Baso % (Auto) (0-1) % Puncture Site ABG pH (7.350-7.450) ABG pCO2 (35.0-42.0) mmHg ABG pO2 (75.0-100.0) mmHg ABG HCO3 (22.0-26.0) mmol/L ABG Total CO2 (21.0-25.0) mmol/L ABG O2 Saturation (95.0-98.0) % ABG O2 Content (15.0-23.0) %vol ABG Base Excess mm/L ABG Hemoglobin (12.0-16.0) g/dL ABG Oxyhemoglobin % ABG Carboxyhemoglobin (0.0-1.6) % ABG Methemoglobin % Farooq Test O2 Delivery Device Sodium (140-148) mmol/L Potassium (3.6-5.2) mmol/L Chloride (100-108) mmol/L Carbon Dioxide (21-32) mmol/L Anion Gap (5.0-14.0) mmol/L BUN (7-18) mg/dL Creatinine (0.6-1.0) mg/dL Est Cr Clr Drug Dosing mL/min Estimated GFR (MDRD) (>60) Glucose (74-106) mg/dL Lactic Acid (0.4-2.0) mmol/L Calcium (8.5-10.1) mg/dL Magnesium (1.8-2.4) mg/dL Total Bilirubin (0.2-1.0) mg/dL AST (15-37) U/L ALT (12-78) U/L Alkaline Phosphatase (46-116) U/L Total Protein (6.4-8.2) g/dL Albumin (3.4-5.0) g/dL Globulin (2.3-3.5) g/dL Albumin/Globulin Ratio (1.2-2.2) Urine Color Urine Appearance Urine pH (4.5-8.0) Ur Specific Sieper (1.008-1.030) Urine Protein (NEGATIVE) mg/dL Urine Glucose (UA) (NEGATIVE) mg/dL Urine Ketones (NEGATIVE) mg/dL Urine Occult Blood (NEGATIVE) Urine Nitrite (NEGATIVE) Urine Bilirubin (NEGATIVE) Urine Urobilinogen (NORMAL) mg/dL Ur Leukocyte Esterase (NEGATIVE) Urine RBC (0-5) Urine WBC (0-5) Ur Epithelial Cells Amorphous Sediment Urine Bacteria Urine Mucus Urine HCG, Qual Negative Urine Opiates Screen (NEGATIVE) Ur Oxycodone Screen (NEGATIVE) Urine Methadone Screen (NEGATIVE) Ur Propoxyphene Screen (NEGATIVE) Ur Barbiturates Screen (NEGATIVE) Ur Tricyclics Screen (NEGATIVE) Ur Phencyclidine Scrn (NEGATIVE) Ur Amphetamine Screen (NEGATIVE) U Methamphetamines Scrn (NEGATIVE) Urine MDMA Screen (NEGATIVE) U Benzodiazepines Scrn (NEGATIVE) U Cocaine Metab Screen (NEGATIVE) U Marijuana (THC) Screen (NEGATIVE) Ethyl Alcohol mg/dL Result Diagrams: 03/13/17 10:15 03/13/17 10:15 *Q Meaningful Use (ADM) - VTE *Q VTE Criteria *Q: - VTE Risk Assess *Q Each Risk Factor Represents 1 Point: Obesity ( BMI > 25 kg/m2) Total Score 1 Point Risk Factors: 1 Each Risk Factor Represents 2 Points: None Total Score 2 Point Risk Factors: 0 Each Risk Factor Represents 3 Points: None Total Score 3 Point Risk Factors: 0 Each Risk Factor Represents 5 Points: None Total Score 5 Point Risk Factors: 0 Venous Thromboembolism Risk Factor Score *Q: 1 - Stroke *Q Stroke Criteria *Q: - AMI *Q AMI Criteria *Q: Problem List Initiated/Reviewed/Updated: Yes Orders Last 24hrs: Active Orders 24 hr Category Date Time Status Patient Status Manage Transfer [TRANSFER] Routine ADT 03/13/17 14:24 Active LORazepam [Ativan] Med 03/13/17 14:40 Once 0.5 mg IVPUSH ONETIME ONE Magnesium Sulfate/Water [Magnesium Sulfate 2 GM in Med 03/13/17 11:30 Active Water 50 ML] 2 gm Premix Bag 1 bag IV Q6H Sodium Chloride 0.9% [Normal Saline] 1,000 ml Med 03/13/17 10:15 Active IV ASDIRECTED Sodium Chloride 0.9% [Normal Saline] 1,000 ml Med 03/13/17 11:30 Active IV ASDIRECTED Sodium Chloride 0.9% [Normal Saline] 1,000 ml Med 03/13/17 13:00 Active IV ASDIRECTED Resuscitation Status Routine Resus Stat 03/13/17 14:26 Ordered Medication Orders Sodium Chloride (Normal Saline) 1,000 mls @ 999 mls/hr IV ASDIRECTED [facility] Last Admin: 03/13/17 10:46 Dose: 999 mls/hr Magnesium Sulfate 2 gm/ Premix 50 mls @ 25 mls/hr IV Q6H [facility] Stop: 03/13/17 19:29 Last Admin: 03/13/17 11:19 Dose: 25 mls/hr Sodium Chloride (Normal Saline) 1,000 mls @ 999 mls/hr IV ASDIRECTED [facility] Last Admin: 03/13/17 12:02 Dose: 999 mls/hr Sodium Chloride (Normal Saline) 1,000 mls @ 500 mls/hr IV ASDIRECTED [facility] Last Admin: 03/13/17 14:00 Dose: 500 mls/hr Lorazepam (Ativan) 0.5 mg IVPUSH ONETIME ONE Stop: 12/16/17 14:41 Assessment/Plan Comment:: ASSESSMENT AND PLAN ALCOHOL WITHDRAWAL-history of recent ingestion of alcohol over the past week and long-standing history of alcohol abuse and dependence. Also ingested other substances this morning as outlined above. Poison control has been contacted and recommended that she received supportive care and management for alcohol withdrawal. -Continue outpatient therapy with gabapentin -Alcohol withdrawal protocol -Continuous pulse oximeter -Anti-medic therapy as needed -Banana bag LACTIC ACIDOSIS-probably related to transient hypotension related to ingestion of isopropyl alcohol lactic acid level is stable from earlier today but does remain elevated. -IV fluids for hydration -Recheck lactic acid level later this evening and again tomorrow morning ANXIETY AND DEPRESSION-no evidence of suicide attempt or ideation -Continue outpatient management SEIZURE DISORDER -Continue outpatient management TYPE 2 DIABETES MELLITUS -Hold metformin because of lactic acidosis -4 times a day glucometers -Low-dose sliding scale NovoLog MAINTENANCE ISSUES -DVT prophylaxis; ambulation -GI prophylaxis; not indicated -Goodrich catheter; not indicated -Nutrition; regular diet -Nicotine dependence; not required CODE STATUS-FULL CODE ADMISSION STATUS-patient will be admitted to inpatient status, expect at least a 2 night hospital stay for evaluation and management of problems as outlined above. At the time of this admission I do not reasonably expected evaluation and management of this problem will require more than a 96 hour hospital stay. DISPOSITION-anticipate discharge to detox in a.m. PRIMARY CARE PROVIDER-
[2017-03-13] MEDS ORDERED: Magnesium Hydroxide 400 MG/5 ML Susp 30 ML Cup PO PRN (14:50)
[2017-03-13] MEDS ORDERED: 50% Dextrose in Water 50 ML Syringe IV PRN (14:50)
[2017-03-13] MEDS ORDERED: Lactated Ringers 500 ML IV SCH (14:50)
[2017-03-13] MEDS ORDERED: Sodium Chloride 0.9% 10 ML Syringe FLUSH PRN (14:50)
[2017-03-13] MEDS ORDERED: Acetaminophen 325 MG Tab PO PRN (14:50)
[2017-03-13] MEDS ORDERED: Glucose Gel 15 GM in 37.5 GM Tube PO PRN (14:50)
[2017-03-13] MEDS ORDERED: LORazepam 1 MG Tab PO PRN (14:50)
[2017-03-13] MEDS ORDERED: Docusate Sodium 100 MG Cap PO PRN (14:50)
[2017-03-13] MEDS ORDERED: MVI, Adult with Vitamin K 10 ML, Thiamine 100 MG, Folic Acid 1 MG, Magnesium Sulfate 2 ... IV ONE ×5 (15:30)
[2017-03-13] MEDS: ClonazePAM 1 MG Tab PO PRN ×2 (15:59→22:12)
[2017-03-13] MEDS: Gabapentin 300 MG Cap PO SCH (16:06)
[2017-03-13] MEDS: oxyCODONE 5 MG Tab PO PRN (17:07)
[2017-03-13] MEDS: Insulin Aspart 100 Units/ML 3 ML Pen SUBCUT SCH ×2 (17:57→20:49)
[2017-03-13] MEDS: Ondansetron 4 MG/2 ML SDV IV PRN (18:07)
[2017-03-13] MEDS ORDERED: Lactated Ringers 1,000 ML IV SCH (18:30)
[2017-03-13] MEDS: LORazepam 2 MG/ML MDV IV PRN ×2 (19:54→22:10)
[2017-03-13] MEDS: lamoTRIgine 100 MG Tab PO SCH (20:50)
[2017-03-13] MEDS: Topiramate 25 MG Tab PO SCH (20:51)
[2017-03-13] MEDS ORDERED: FLUoxetine 20 MG Cap PO SCH (21:00)
[2017-03-13] MEDS ORDERED: Gabapentin 300 MG Cap PO SCH (21:00)
[2017-03-14] MEDS: oxyCODONE 5 MG Tab PO PRN (05:08)
[2017-03-14] MEDS: Insulin Aspart 100 Units/ML 3 ML Pen SUBCUT SCH (06:41)
[2017-03-14] MEDS: ClonazePAM 1 MG Tab PO PRN (06:42)
[2017-03-14] MEDS: Topiramate 25 MG Tab PO SCH (08:10)
[2017-03-14] MEDS: Ondansetron 4 MG/2 ML SDV IV PRN (08:11)
[2017-03-14] MEDS: lamoTRIgine 100 MG Tab PO SCH (08:14)
[2017-03-14] MEDS: Gabapentin 300 MG Cap PO SCH (08:16)
[2017-03-14] MEDS ORDERED: Calcium Carbonate 500 MG Tab.Chew PO SCH (09:00)
[2017-03-14] MEDS ORDERED: Cholecalciferol (Vitamin D3) 1,000 Unit Tab PO SCH (09:00)
[2017-03-14] MEDS ORDERED: Spironolactone 25 MG Tab PO SCH (09:00)
--- NOTE | 2017-03-14 09:10 | PCM.DCSUM1 ---
Discharge Summary - Hospital Course Brief History: This patient is a 31-year-old woman who was admitted through the emergency department with alcohol intoxication and lactic acidosis. Lactic acidosis was felt to be likely secondary to ingestion of several substances, in an attempt to get alcohol. - Discharge Data Discharge Date: 03/14/17 Discharge Disposition: Home, Self-Care 01 Condition: Fair - Discharge Diagnosis/Problem(s) (1) Lactic acidosis SNOMED Code(s): 10149734 ICD Code: E87.2 - ACIDOSIS Status: Acute Current Visit: Yes (2) Alcohol ingestion SNOMED Code(s): 703565817 ICD Code: Z78.9 - OTHER SPECIFIED HEALTH STATUS Status: Acute Current Visit: Yes - Patient Summary/Data Hospital Course: This patient is a 31-year-old woman who is had a long-standing history of alcohol abuse and dependence. She had been consuming alcohol over the past week , prior to admission she had consumed household products including hand cleanser and body washes in an attempt to obtain more alcohol. On initial evaluation in the emergency department she was noted to have a lactic acidosis, this was felt to be secondary to probable hypotension and associated dehydration. She was given vigorous IV fluid replacement and admitted to the intensive care unit for further monitoring and management. She was also placed on alcohol withdrawal protocol, but showed no significant evidence of alcohol withdrawal. She denied any suicidal ideation and reported that the ingestion of things that she taken at home worse. Early an attempt to obtain more alcohol and not to try to harm herself. With fluid replacement lactic acidosis resolved and by the morning of discharge electrolytes and acid-base status was back to normal range. Renal function remains stable following hydration. There was a modest drop in hemoglobin consistent with dilution associated with rehydration. There was no evidence of active GI bleeding. On initial presentation she was very agitated and placed on a 70 torr hold for her safety as it was felt that she was not able to make adequate decisions at that time and wanted to leave. 72 hour hold will be discontinued at the time of discharge. She was offered placement in alcohol treatment facility which she refused time of discharge but will follow-up with mental health provider to consider further treatment. Follow -up appointment will be scheduled with her primary care provider within one week. Activity will be as tolerated and she will resume her usual diet. - Patient Instructions Diet: Usual Diet as Tolerated Activity: As Tolerated Other/Special Instructions: Please schedule follow-up appointment with primary care provider within one week. - Discharge Plan Home Medications: Home Meds Calcium Carbonate [Calcium] 1 tab PO DAILY 01/08/17 [History] Cholecalciferol (Vitamin D3) [Vitamin D3] 1 cap PO DAILY 01/08/17 [History] ClonazePAM [KlonoPIN] 1 tab PO QID PRN 01/08/17 [History] Cyanocobalamin (Vitamin B-12) [Vitamin B-12] 1 ml IM ASDIRECTED 01/08/17 [ History] Eszopiclone [Lunesta] 1 tab PO BEDTIME 01/08/17 [History] FLUoxetine HCl [Prozac] 60 mg PO BEDTIME 01/08/17 [History] Gabapentin [Neurontin] 300 mg PO BID 01/08/17 [History] Gabapentin [Neurontin] 600 mg PO BEDTIME 01/08/17 [History] Ondansetron [Zofran ODT] 1 tab PO Q12H 01/08/17 [History] Spironolactone [Aldactone] 1 tab PO DAILY 01/08/17 [History] Topiramate [Topamax] 50 mg PO BID 01/08/17 [History] lamoTRIgine [Lamictal] 200 mg PO BID 01/08/17 [History] metFORMIN [Glucophage] 1,000 mg PO BIDMEALS 01/08/17 [History] Referrals: Ioana Torres NP [Nurse Practitioner] - - Patient Data Vitals - Most Recent: Last Vital Signs Temp 97.7 F 03/14/17 08:00 Pulse 89 03/14/17 08:00 Resp 18 03/14/17 08:00 BP 121/78 03/14/17 08:00 Pulse Ox 97 03/14/17 08:00 Weight - Most Recent: 188 lb 3.274 oz I&O - Last 24 hours: Intake & Output 03/13/17 03/14/17 03/14/17 22:59 06:59 14:59 Intake Total 1080 1429 Output Total 500 1800 Balance 580 -371 Lab Results - Last 24 hrs: Laboratory Results - last 24 hr 03/13/17 03/13/17 03/14/17 Range/Units 19:00 19:15 05:35 WBC (4.5-11.0) K/uL RBC (3.30-5.50) M/uL Hgb (12.0-15.0) g/dL Hct (36.0-48.0) % MCV (80-98) fL MCH (27-31) pg MCHC (32-36) % Plt Count (150-400) K/uL Neut % (Auto) (36-66) % Lymph % (Auto) (24-44) % [place] % (Auto) (2-6) % Eos % (Auto) (2-4) % Baso % (Auto) (0-1) % Sodium 136 L (140-148) mmol/L Potassium 3.9 (3.6-5.2) mmol/L Chloride 103 (100-108) mmol/L Carbon Dioxide 19 L (21-32) mmol/L Anion Gap 17.9 H (5.0-14.0) mmol/L BUN 8 (7-18) mg/dL Creatinine 0.8 (0.6-1.0) mg/dL Est Cr Clr Drug Dosing 98.18 mL/min Estimated GFR (MDRD) > 60 (>60) Glucose 134 H (74-106) mg/dL Lactic Acid 3.8 H 1.0 (0.4-2.0) mmol/L Calcium 7.3 L (8.5-10.1) mg/dL Magnesium (1.8-2.4) mg/dL Total Bilirubin 0.3 (0.2-1.0) mg/dL AST 30 (15-37) U/L ALT 21 (12-78) U/L Alkaline Phosphatase 94 (46-116) U/L Total Protein 5.2 L (6.4-8.2) g/dL Albumin 2.6 L (3.4-5.0) g/dL Globulin 2.6 (2.3-3.5) g/dL Albumin/Globulin Ratio 1.0 L (1.2-2.2) 03/14/17 03/14/17 Range/Units 05:35 05:35 WBC 8.7 (4.5-11.0) K/uL RBC 3.69 (3.30-5.50) M/uL Hgb 11.8 L D (12.0-15.0) g/dL Hct 34.5 L (36.0-48.0) % MCV 94 (80-98) fL MCH 32 H (27-31) pg MCHC 34 (32-36) % Plt Count 177 (150-400) K/uL Neut % (Auto) 70 H (36-66) % Lymph % (Auto) 25 (24-44) % [place] % (Auto) 5 (2-6) % Eos % (Auto) 1 L (2-4) % Baso % (Auto) 0 (0-1) % Sodium 138 L (140-148) mmol/L Potassium 4.0 (3.6-5.2) mmol/L Chloride 105 (100-108) mmol/L Carbon Dioxide 27 (21-32) mmol/L Anion Gap 10.0 (5.0-14.0) mmol/L BUN 5 L (7-18) mg/dL Creatinine 0.9 (0.6-1.0) mg/dL Est Cr Clr Drug Dosing 87.27 mL/min Estimated GFR (MDRD) > 60 (>60) Glucose 107 H (74-106) mg/dL Lactic Acid (0.4-2.0) mmol/L Calcium 7.7 L (8.5-10.1) mg/dL Magnesium 2.3 D (1.8-2.4) mg/dL Total Bilirubin (0.2-1.0) mg/dL AST (15-37) U/L ALT (12-78) U/L Alkaline Phosphatase (46-116) U/L Total Protein (6.4-8.2) g/dL Albumin (3.4-5.0) g/dL Globulin (2.3-3.5) g/dL Albumin/Globulin Ratio (1.2-2.2) Med Orders - Current: Current Medications Acetaminophen (Tylenol) 650 mg PO Q4H PRN PRN Reason: Pain (Mild 1-3)/fever Calcium Carbonate/Glycine (Tums) 500 mg PO DAILY CORINE Last Admin: 03/14/17 08:19 Dose: 500 mg Cholecalciferol (Vitamin D3) 1,000 units PO DAILY CORINE Last Admin: 03/14/17 08:17 Dose: 1,000 units Clonazepam (Klonopin) 1 mg PO QID PRN PRN Reason: Anxiety Last Admin: 03/14/17 06:42 Dose: 1 mg Dextrose (Glutose 15) 15 gm PO ONETIME PRN PRN Reason: Hypoglycemia Dextrose/Water (Dextrose 50% In Water) 50 ml IV ONETIME PRN PRN Reason: Hypoglycemia Docusate Sodium (Colace) 100 mg PO BID PRN PRN Reason: Constipation Fluoxetine HCl (Prozac) 60 mg PO BEDTIME [facility] Last Admin: 03/13/17 20:50 Dose: 60 mg Gabapentin (Neurontin) 300 mg PO BID@0900,1400 [facility] Last Admin: 03/14/17 08:16 Dose: 300 mg Gabapentin (Neurontin) 600 mg PO BEDTIME [facility] Last Admin: 03/13/17 20:52 Dose: 600 mg Insulin Aspart (Novolog) 0 unit SUBCUT QIDACANDBED [facility] PRN Reason: Protocol Last Admin: 03/14/17 06:41 Dose: Not Given Lamotrigine (Lamotrigine) 200 mg PO BID [facility] Last Admin: 03/14/17 08:14 Dose: 200 mg Magnesium Hydroxide (Milk Of Magnesia) 30 ml PO Q12H PRN PRN Reason: Constipation Non-Formulary Medication (Cyanocobalamin (Vitamin B-12) [Vitamin B-12]) 1 ml IM ASDIRECTED [facility] Ondansetron HCl (Zofran) 4 mg IV Q4H PRN PRN Reason: Nausea/Vomiting Last Admin: 03/14/17 08:11 Dose: 4 mg Sodium Chloride (Saline Flush) 10 ml FLUSH ASDIRECTED PRN PRN Reason: Keep Vein Open Spironolactone (Aldactone) 100 mg PO DAILY [facility] Last Admin: 03/14/17 08:15 Dose: 100 mg Topiramate (Topamax) 50 mg PO BID [facility] Last Admin: 03/14/17 08:10 Dose: 50 mg Discontinued Medications Sodium Chloride (Normal Saline) 1,000 mls @ 999 mls/hr IV ASDIRECTED [facility] Last Admin: 03/13/17 10:46 Dose: 999 mls/hr Magnesium Sulfate 2 gm/ Premix 50 mls @ 25 mls/hr IV Q6H [facility] Stop: 03/13/17 19:29 Last Admin: 03/13/17 18:00 Dose: 25 mls/hr Sodium Chloride (Normal Saline) 1,000 mls @ 999 mls/hr IV ASDIRECTED [facility] Last Admin: 03/13/17 12:02 Dose: 999 mls/hr Sodium Chloride (Normal Saline) 1,000 mls @ 500 mls/hr IV ASDIRECTED CORINE Last Admin: 03/13/17 14:00 Dose: 500 mls/hr Multivitamins/Minerals 10 ml/Thiamine HCl 100 mg/ Folic Acid 1 mg/ Magnesium Sulfate 2 gm/ Sodium Chloride 1,015.2 mls @ 100 mls/hr IV ONETIME ONE Stop: 03/14/17 01:39 Last Admin: 03/13/17 15:48 Dose: 100 mls/hr Lactated Ringer's (Ringers, Lactated) 500 mls @ 500 mls/hr IV .BOLUS CORINE Stop: 03/13/17 18:51 Lactated Ringer's (Ringers, Lactated) 1,000 mls @ 125 mls/hr IV ASDIRECTED CORINE Last Admin: 03/14/17 03:38 Dose: 125 mls/hr Lorazepam (Ativan) 0.5 mg IVPUSH ONETIME ONE Stop: 03/13/17 13:34 Last Admin: 03/13/17 13:41 Dose: 0.5 mg Lorazepam (Ativan) 0.5 mg IVPUSH ONETIME ONE Stop: 03/13/17 14:41 Last Admin: 03/13/17 14:53 Dose: 0.5 mg Lorazepam (Ativan) 0 mg IV ASDIRECTED PRN; Protocol PRN Reason: SEE PROTOCOL Last Admin: 03/13/17 22:10 Dose: 1 mg Lorazepam (Ativan) 0 mg PO ASDIRECTED PRN; Protocol PRN Reason: SEE PROTOCOL Last Admin: 03/14/17 05:08 Dose: 1 mg Ondansetron HCl (Zofran) 4 mg IVPUSH ONETIME ONE Stop: 03/13/17 10:09 Last Admin: 03/13/17 10:46 Dose: 4 mg Ondansetron HCl (Zofran) 4 mg IVPUSH ONETIME ONE Stop: 03/13/17 13:16 Last Admin: 03/13/17 13:21 Dose: 4 mg Oxycodone HCl (Oxycodone) 5 mg PO Q4H PRN PRN Reason: Pain (moderate 4-6) Last Admin: 03/14/17 05:08 Dose: 5 mg Potassium Chloride (Klor-Con M20) 40 meq PO ONETIME ONE Stop: 12/16/17 11:09 Last Admin: 03/13/17 11:19 Dose: 40 meq *Q Meaningful Use (DIS) - VTE *Q VTE Criteria *Q: - Stroke *Q Stroke Criteria *Q: - AMI *Q AMI Criteria *Q:
[2017-03-14] MEDS ORDERED: Cyanocobalamin (Vitamin B12) 1,000 MCG/ML SDV IM ONE (10:00)
== END 2017-03-14 09:50 | disposition home or self-care (01) | DRG 897 ==
LOC: JP.ED 09:55 → JP.ICU 14:24
PROVIDERS: ADMIT Hospitalist; ATTEND Hospitalist
DX: F10.239 Alcohol dependence with withdrawal, unspecified (principal); E87.2 Acidosis; F10.229 Alcohol dependence with intoxication, unspecified; Y90.8 Blood alcohol level of 240 mg/100 ml or more; T51.2X2A Toxic effect of 2-Propanol, intentional self-harm, initial encounter; T49.0X2A Poisoning by local antifungal, anti-infective and anti-inflammatory drugs, intentional self-harm, initial encounter; T49.6X2A Poisoning by otorhinolaryngological drugs and preparations, intentional self-harm, initial encounter; Y92.9 Unspecified place or not applicable; R45.1 Restlessness and agitation; G40.909 Epilepsy, unspecified, not intractable, without status epilepticus; I95.9 Hypotension, unspecified; E86.0 Dehydration; Z87.891 Personal history of nicotine dependence; E11.9 Type 2 diabetes mellitus without complications; R41.0 Disorientation, unspecified; R53.1 Weakness; R11.10 Vomiting, unspecified; Z79.84 Long term (current) use of oral hypoglycemic drugs; F41.9 Anxiety disorder, unspecified; F32.9 Major depressive disorder, single episode, unspecified; E53.8 Deficiency of other specified B group vitamins; M54.9 Dorsalgia, unspecified; G89.29 Other chronic pain; Z98.84 Bariatric surgery status; Z88.8 Allergy status to other drugs, medicaments and biological substances
CPT/HCPCS: 36415; 36600; 80053; 80305; 81001; 81025; 82803; 82962; 83605 ×2; 83735; 85025; 96361; 96374; 96375; 96376; 99285; A9270; G0480; J2060; J2405 ×2; J3475; J7040 ×3; 80048; J3411; J3420; J3490; J7120

== ENCOUNTER 2017-07-22 18:01 | Emergency (ER) | payer MEDICARE, MEDICAID ==
[2017-07-22] MEDS ORDERED: Sodium Chloride 0.9% 1,000 ML IV SCH (18:30)
--- NOTE | 2017-07-22 18:35 | EDM.PDOC ---
ED HPI GENERAL MEDICAL PROBLEM - General Chief Complaint: Gastrointestinal Problem Stated Complaint: ILLNESS Time Seen by Provider: 07/22/17 18:15 Source of Information: Reports: Patient, EMS History Limitations: Reports: No Limitations - History of Present Illness INITIAL COMMENTS - FREE TEXT/NARRATIVE: 31-year-old female arrives by ambulance with persistent nausea and vomiting for the past several days due to her uncontrolled "anxiety". She also has a history of seizure disorder, and feels she is going to have a seizure. She's developing some abdominal pain from the vomiting, mostly muscular. No shortness of breath. She has an appointment with her psychiatrist tomorrow, but doesn't feel she can make it and feels the anxiety is uncontrolled. She denies any alcohol intake. She is also very worried that her stomach ulcers resurfaced over she denies any hematemesis. Denies any urinary symptoms. Onset: Unknown/Unsure (Symptoms have been ongoing for at least several days) Severity: Moderate Associated Symptoms: Reports: Malaise, Nausea/Vomiting, Weakness. Denies: Chest Pain, Fever/Chills, Headaches Abdominal Pain Score (Numeric/FACES): 8 - Related Data Allergies Allergy/AdvReac Type Severity Reaction Status Date / Time bupropion [From Wellbutrin] Allergy Seizure Verified 07/22/17 18:10 paroxetine [From Paxil] Allergy Confusion Verified 07/22/17 18:10 pramipexole [From Mirapex] Allergy Rash Verified 07/22/17 18:10 quetiapine [From Seroquel] Allergy Tachycardia Verified 07/22/17 18:10 venlafaxine [From Effexor] Allergy Cannot Verified 07/22/17 18:10 Remember Home Meds: Home Meds Calcium Carbonate [Calcium] 1 tab PO DAILY 01/08/17 [History] Cholecalciferol (Vitamin D3) [Vitamin D3] 1 cap PO DAILY 01/08/17 [History] ClonazePAM [KlonoPIN] 1 tab PO QID PRN 01/08/17 [History] Cyanocobalamin (Vitamin B-12) [Vitamin B-12] 1 ml IM ASDIRECTED 01/08/17 [ History] FLUoxetine HCl [Prozac] 60 mg PO BEDTIME 01/08/17 [History] Gabapentin [Neurontin] 300 mg PO BID 01/08/17 [History] Gabapentin [Neurontin] 600 mg PO BEDTIME 01/08/17 [History] Ondansetron [Zofran ODT] 1 tab PO Q12H 01/08/17 [History] Topiramate [Topamax] 50 mg PO BID 01/08/17 [History] lamoTRIgine [Lamictal] 200 mg PO BID 01/08/17 [History] metFORMIN [Glucophage] 1,000 mg PO BIDMEALS 01/08/17 [History] Temazepam 1 - 2 tab PO BEDTIME 07/22/17 [History] Past Medical History HEENT History: Reports: None Gastrointestinal History: Reports: [employer] History: Reports: Polycystic Ovaries Musculoskeletal History: Reports: Back Pain, Chronic, Fracture, Osteoporosis Neurological History: Reports: Head Trauma, Migraines, Seizure, Other (See Below ) Other Neuro History: epilepsy Psychiatric History: Reports: ADHD, Addiction, Anxiety, Depression Hematologic History: Reports: B12 Deficiency - Past Surgical History HEENT Surgical History: Reports: Adenoidectomy, Myringotomy w Tube(s), Oral Surgery, Other (See Below) Other HEENT Surgeries/Procedures: rhinoplasty, jaw surgery. GI Surgical History: Reports: Bariatric Procedure, Cholecystectomy, Hernia Repair/Other, Other (See Below) Other GI Surgeries/Procedures: perforated bowel surgery from ulcers, panniculectomy with revision x 2. Musculoskeletal Surgical History: Reports: Other (See Below) Other Musculoskeletal Surgeries/Procedures:: "rods in Left leg", left hand surgery, 5 foot surgeries d/t flat feet. Social & Family History - Tobacco Use Smoking Status *Q: Former Smoker Years of Tobacco use: 10 Packs/Tins Daily: 0.5 Used Tobacco, but Quit: Yes Month/Year Tobacco Last Used: october 2016 - Caffeine Use Caffeine Use: Reports: Soda - Recreational Drug Use Recreational Drug Use: No ED ROS GENERAL - Review of Systems Review Of Systems: See Below Constitutional: Reports: Malaise, Weakness, Decreased Appetite. Denies: Fever, Chills HEENT: Denies: Vision Change Respiratory: Denies: Shortness of Breath Cardiovascular: Denies: Chest Pain GI/Abdominal: Reports: Abdominal Pain, Diarrhea, Nausea, Vomiting : Reports: No Symptoms Musculoskeletal: Reports: Back Pain (Chronic and unchanged) Skin: Reports: No Symptoms Neurological: Reports: Confusion, Weakness Psychiatric: Reports: Anxiety ED EXAM, GENERAL - Physical Exam Exam: See Below Exam Limited By: Other (Have not met this patient before but her speech is slurred and slow, unknown if it is her baseline) Eye Exam: Bilateral Eye: EOMI (She has no jaundice) Throat/Mouth: Normal Inspection (Oral mucosa looks hydrated) Head: Atraumatic Respiratory/Chest: No Respiratory Distress, Lungs Clear Cardiovascular: Regular Rate, Rhythm. No: Tachycardia, Extra Beats GI/Abdominal: Soft, Tender (She asked for some slight tenderness diffusely to palpation of the abdomen, no focal tenderness. Bowel sounds are hypoactive, there is no distention) Neurological: Alert, Slow to Respond Psychiatric: Depressed Mood Skin Exam: Warm, Dry Course - Vital Signs Last Recorded V/S: Last Vital Signs Temp 98.5 F 07/22/17 19:36 Pulse 92 07/22/17 19:36 Resp 15 07/22/17 19:36 BP 108/68 07/22/17 19:36 Pulse Ox 98 07/22/17 19:36 - Orders/Labs/Meds Orders: Active Orders 24 hr Category Date Time Status DRUG SCREEN, URINE [URCHEM] Stat Lab 07/22/17 19:29 Ordered UA W/MICROSCOPIC [URIN] Stat Lab 07/22/17 19:29 Ordered Labs: Laboratory Tests 07/22/17 07/22/17 07/22/17 Range/Units 18:34 18:34 18:34 WBC 16.0 H (4.5-11.0) K/uL RBC 4.50 (3.30-5.50) M/uL Hgb 14.1 D (12.0-15.0) g/dL Hct 40.5 (36.0-48.0) % MCV 90 (80-98) fL MCH 31 (27-31) pg MCHC 35 (32-36) % Plt Count 244 (150-400) K/uL Neut % (Auto) 77 H (36-66) % Lymph % (Auto) 15 L (24-44) % Real % (Auto) 7 H (2-6) % Eos % (Auto) 1 L (2-4) % Baso % (Auto) 0 (0-1) % Sodium 129 L (140-148) mmol/L Potassium 2.9 L* (3.6-5.2) mmol/L Chloride 92 L (100-108) mmol/L Carbon Dioxide 26 (21-32) mmol/L Anion Gap 13.9 (5.0-14.0) mmol/L BUN 8 D (7-18) mg/dL Creatinine 0.5 L (0.6-1.0) mg/dL Est Cr Clr Drug Dosing 157.08 mL/min Estimated GFR (MDRD) > 60 (>60) Glucose 112 H (74-106) mg/dL Calcium 8.7 (8.5-10.1) mg/dL Total Bilirubin 0.8 D (0.2-1.0) mg/dL AST 53 H D (15-37) U/L ALT 45 D (12-78) U/L Alkaline Phosphatase 179 H D (46-116) U/L Ammonia 33 H (11-32) mmol/L Total Protein 6.3 L (6.4-8.2) g/dL Albumin 3.0 L (3.4-5.0) g/dL Globulin 3.3 (2.3-3.5) g/dL Albumin/Globulin Ratio 0.9 L (1.2-2.2) Amylase 29 (25-115) U/L Lipase 94 (73-393) U/L Urine Color Urine Appearance Urine pH (4.5-8.0) Ur Specific Page (1.008-1.030) Urine Protein (NEGATIVE) mg/dL Urine Glucose (UA) (NEGATIVE) mg/dL Urine Ketones (NEGATIVE) mg/dL Urine Occult Blood (NEGATIVE) Urine Nitrite (NEGATIVE) Urine Bilirubin (NEGATIVE) Urine Urobilinogen (NORMAL) mg/dL Ur Leukocyte Esterase (NEGATIVE) Urine RBC (0-5) Urine WBC (0-5) Ur Epithelial Cells Amorphous Sediment Urine Bacteria Urine Mucus Urine Opiates Screen (NEGATIVE) Ur Oxycodone Screen (NEGATIVE) Urine Methadone Screen (NEGATIVE) Ur Propoxyphene Screen (NEGATIVE) Ur Barbiturates Screen (NEGATIVE) Ur Tricyclics Screen (NEGATIVE) Ur Phencyclidine Scrn (NEGATIVE) Ur Amphetamine Screen (NEGATIVE) U Methamphetamines Scrn (NEGATIVE) Urine MDMA Screen (NEGATIVE) U Benzodiazepines Scrn (NEGATIVE) U Cocaine Metab Screen (NEGATIVE) U Marijuana (THC) Screen (NEGATIVE) Ethyl Alcohol mg/dL 07/22/17 07/22/17 07/22/17 Range/Units 18:34 19:29 19:29 WBC (4.5-11.0) K/uL RBC (3.30-5.50) M/uL Hgb (12.0-15.0) g/dL Hct (36.0-48.0) % MCV (80-98) fL MCH (27-31) pg MCHC (32-36) % Plt Count (150-400) K/uL Neut % (Auto) (36-66) % Lymph % (Auto) (24-44) % Real % (Auto) (2-6) % Eos % (Auto) (2-4) % Baso % (Auto) (0-1) % Sodium (140-148) mmol/L Potassium (3.6-5.2) mmol/L Chloride (100-108) mmol/L Carbon Dioxide (21-32) mmol/L Anion Gap (5.0-14.0) mmol/L BUN (7-18) mg/dL Creatinine (0.6-1.0) mg/dL Est Cr Clr Drug Dosing mL/min Estimated GFR (MDRD) (>60) Glucose (74-106) mg/dL Calcium (8.5-10.1) mg/dL Total Bilirubin (0.2-1.0) mg/dL AST (15-37) U/L ALT (12-78) U/L Alkaline Phosphatase (46-116) U/L Ammonia (11-32) mmol/L Total Protein (6.4-8.2) g/dL Albumin (3.4-5.0) g/dL Globulin (2.3-3.5) g/dL Albumin/Globulin Ratio (1.2-2.2) Amylase (25-115) U/L Lipase (73-393) U/L Urine Color Yellow Urine Appearance Clear Urine pH 7.0 (4.5-8.0) Ur Specific Page 1.010 (1.008-1.030) Urine Protein Negative (NEGATIVE) mg/dL Urine Glucose (UA) Normal (NEGATIVE) mg/dL Urine Ketones 50 H (NEGATIVE) mg/dL Urine Occult Blood Negative (NEGATIVE) Urine Nitrite Negative (NEGATIVE) Urine Bilirubin Negative (NEGATIVE) Urine Urobilinogen Normal (NORMAL) mg/dL Ur Leukocyte Esterase Negative (NEGATIVE) Urine RBC 0-5 (0-5) Urine WBC 0-5 (0-5) Ur Epithelial Cells Many Amorphous Sediment Not seen Urine Bacteria Not seen Urine Mucus Not seen Urine Opiates Screen Negative (NEGATIVE) Ur Oxycodone Screen Negative (NEGATIVE) Urine Methadone Screen Negative (NEGATIVE) Ur Propoxyphene Screen Negative (NEGATIVE) Ur Barbiturates Screen Negative (NEGATIVE) Ur Tricyclics Screen Negative (NEGATIVE) Ur Phencyclidine Scrn Negative (NEGATIVE) Ur Amphetamine Screen Negative (NEGATIVE) U Methamphetamines Scrn Negative (NEGATIVE) Urine MDMA Screen Negative (NEGATIVE) U Benzodiazepines Scrn Positive H (NEGATIVE) U Cocaine Metab Screen Negative (NEGATIVE) U Marijuana (THC) Screen Negative (NEGATIVE) Ethyl Alcohol 3 mg/dL Meds: Medications Discontinued Medications Generic Name Dose Route Start Last Admin Trade Name Freq PRN Reason Stop Dose Admin Sodium Chloride 1,000 mls @ 1,000 mls/hr 07/22/17 18:30 07/22/17 18:54 Normal Saline IV 1,000 mls/hr ASDIRECTED CORINE Administration Potassium Chloride 20 meq/ 100 mls @ 50 mls/hr 07/22/17 18:59 07/22/17 19:32 Premix IV 07/22/17 20:58 50 mls/hr ONETIME ONE Administration Lidocaine HCl 2 ml 07/22/17 19:15 07/22/17 19:32 Xylocaine-Mpf 1% INJECT 07/22/17 19:16 2 ml ONETIME ONE Administration - Re-Assessments/Exams Free Text/Narrative Re-Assessment/Exam: 07/22/17 18:34 Patient will be given 1 L of normal saline, a CBC, CMP, amylase, lipase, EtOH and UA will be obtained. 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 It does appear that she gets her refills somewhat early at times but overall no significant red flags. 07/22/17 21:15 Ammonia level is 33, AST and alkaline phosphatase were mildly elevated and she had 3 mg/dL of EtOH. Although this is only a trace it indicates recent ingestion. Urine drug screen is otherwise negative except for her prescribed benzodiazepine. She was in the emergency room for 3 hours and had no emesis, ambulated without difficulty and I have no reason for hospitalization. We did give her 20 mEq of potassium as her potassium was 2.9. 07/22/17 23:13 Patient is set up for an EGD tomorrow by Dr. Vaz, and will be watched closely by her boyfriend for the next several days. Departure - Departure Time of Disposition: 21:42 Disposition: Home, Self-Care 01 Condition: Fair Clinical Impression: Dehydration, mild, Hypokalemia, Weakness generalized - Discharge Information Instructions: Dehydration, Adult Referrals: PCP,None [Primary Care Provider] - Forms: ED Department Discharge Care Plan Goals: Concentrated on fluids and increase diet as tolerated. Avoid alcohol. Return tomorrow for your EGD as scheduled. - My Orders Last 24 Hours: My Active Orders 07/22/17 19:29 DRUG SCREEN, URINE [URCHEM] Stat UA W/MICROSCOPIC [URIN] Stat - Assessment/Plan Last 24 Hours: My Active Orders 07/22/17 19:29 DRUG SCREEN, URINE [URCHEM] Stat UA W/MICROSCOPIC [URIN] Stat
[2017-07-22] MEDS ORDERED: Potassium Chloride 20 MEQ in Premix Bag 1 BAG IV ONE (18:59)
== END 2017-07-22 21:42 | disposition home or self-care (01) ==
LOC: JP.ED 18:01
DX: E86.0 Dehydration (principal); E87.6 Hypokalemia; Z88.8 Allergy status to other drugs, medicaments and biological substances; Z79.899 Other long term (current) drug therapy; Z79.84 Long term (current) use of oral hypoglycemic drugs; Z87.891 Personal history of nicotine dependence
CPT/HCPCS: 36415; 80053; 80305; 81001; 82140; 82150; 83690; 85025; 96360; 96361; 99284; G0480; J3480; J7040

== ENCOUNTER 2017-07-23 09:00 | Inpatient (IN) | payer MEDICARE, MEDICAID ==
[2017-07-23] MEDS ORDERED: Sodium Chloride 0.9% 1,000 ML IV SCH (10:45)
[2017-07-23] MEDS ORDERED: Midazolam 1 MG/ML 2 ML SDV ONE (11:59)
[2017-07-23] MEDS ORDERED: fentaNYL 100 MCG/2 ML SDV ONE (11:59)
[2017-07-23] MEDS ORDERED: Propofol 200 MG/20 ML SDV ONE (12:00)
[2017-07-23] MEDS ORDERED: Iopamidol 612 MG/ML 100 ML Bottle IV PRN (13:27)
[2017-07-23] MEDS ORDERED: Sodium Chloride 0.9% 75 ML IV SCH (13:30)
[2017-07-23] MEDS ORDERED: Albuterol/Ipratropium 3.0-0.5 MG/3 ML Neb Soln NEB PRN (13:58)
[2017-07-23] MEDS ORDERED: Potassium Chloride 40 MEQ/20 ML SDV IV ONE (14:01)
--- NOTE | 2017-07-23 14:07 | CT ---
Abdomen Pelvis w Cont HISTORY: felicia-en-y ischemia Axial spiral enhanced CT scan of the abdomen and pelvis was obtained using IV contrast only. Coronal reconstructions were obtained. There are no prior exams for comparison. Auto dosage and iterative reconstruction techniques were employed. FINDINGS: Heart size appears within normal limits. Lung bases are clear. There is no pleural fluid. A ttenuation of the liver is mildly decreased diffusely suggesting fatty infiltration. Gallbladder is s urgically absent. There is no biliary duct dilatation. I see no focal abnormality of the spleen, panc reas, adrenal glands, or kidneys. A couple small, subcentimeter left renal cysts are noted. Abdominal aorta is unremarkable. 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 Most of the Felicia limb is edematous with wall thickening a nd mild pericolonic fat stranding. This could be ischemic or inflammatory. I see no signs of perforat ion or abscess. No obvious thrombosed mesenteric vessel can be seen. No pelvic mass or abnormal fluid collections are seen. There is a small amount of free fluid in the p elvic cul-de-sac. Probable dominant follicular cyst is noted on the right ovary measuring about 1.8 c m in diameter. There is no pelvic, retroperitoneal, or mesenteric adenopathy. Bony structures are unr emarkable. There is diastases of the rectus abdominous muscles. Small umbilical hernia is noted. I se e no signs of incarceration. IMPRESSION: 1. 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 Most of the Felicia limb demonstrates wall thickening and edema with adjacent mesenteric fat stranding. This could represent ischemia or inflammation. I see n o perforation or abscess. No other complication is seen. 2. Postcholecystectomy changes are noted. 3. Possible fatty infiltration of the liver. 4. Diastasis of the rectus abdominous muscles. Small umbilical hernia is noted without evidence for i ncarceration. 5. A small amount of free fluid is noted in the pelvic cul-de-sac. This could be physiologic. Probabl e dominant follicular cyst is noted on the right ovary.
[2017-07-23] MEDS: Potassium Chloride 20 MEQ, Lidocaine 1% 2 ML in Sodium Chloride 0.9% 100 ML IV SCH ×3 (14:57→19:26)
--- NOTE | 2017-07-23 15:11 | OR ---
DATE OF PROCEDURE: 07/23/2017 PROCEDURE: EGD. FINDINGS: 1. Probable ischemia of the Felicia-en-Y limb approximately 15 cm in length. 2. No other gross abnormalities. COMPLICATIONS: None. LAW FIRM CONSULTANT: None. ANESTHESIA: MAC. PREOPERATIVE DIAGNOSIS: Epigastric pain. POSTOPERATIVE DIAGNOSIS: Epigastric pain. RISKS: Risks, benefits, alternatives, limitations including, but not limited to infection, bleeding, and perforation were explained to the patient, who wished to proceed. PROCEDURE IN DETAIL: The patient was placed in the left lateral decubitus position. The EGD scope was introduced and advanced atraumatically into the esophagus. The esophagus itself from the proximal part of the pouch appeared normal. It looks like ischemia begins in the distal pouch and extends for greater than 25 cm probably of the Felicia-en-Y limb, which eventually collates into normal tissue. No other abnormalities noted. The patient will be transferred to Dr. Mann for further care. Adolfo Vaz MD /[id number]
[2017-07-23] MEDS: Ondansetron 4 MG/2 ML SDV IVPUSH SCH ×3 (16:29→21:14)
[2017-07-23] MEDS: Dextrose 5%-Lactated Ringers 1,000 ML IV SCH (16:29)
[2017-07-23] MEDS: Pantoprazole 40 MG Vial IVPUSH SCH (16:29)
[2017-07-23] MEDS ORDERED: Naloxone 0.4 MG/ML SDV IV PRN (16:57)
[2017-07-23] MEDS: HYDROmorphone/Normal Saline 15 MG/30 ML PCA IV PRN (17:10)
[2017-07-23] MEDS: cefOXitin 2 GM in Sodium Chloride 0.9% 50 ML IV SCH (20:58)
[2017-07-23] MEDS: lamoTRIgine 100 MG Tab PO SCH (20:58)
[2017-07-23] MEDS: Topiramate 25 MG Tab PO SCH (20:59)
[2017-07-23] MEDS: FLUoxetine 20 MG Cap PO SCH (20:59)
[2017-07-23] MEDS ORDERED: Gabapentin 300 MG Cap PO SCH (21:00)
[2017-07-24] MEDS: Dextrose 5%-Lactated Ringers 1,000 ML IV SCH ×2 (00:15→07:26)
[2017-07-24] MEDS ORDERED: Propofol 200 MG/20 ML SDV ONE (01:46)
[2017-07-24] MEDS ORDERED: Succinylcholine 200 MG/10 ML MDV ONE (01:46)
[2017-07-24] MEDS ORDERED: Neostigmine Methylsulfate 1 MG/ML 5 ML Syringe ONE (01:46)
[2017-07-24] MEDS ORDERED: Glycopyrrolate 0.2 MG/ML 5 ML MDV ONE (01:46)
[2017-07-24] MEDS ORDERED: Rocuronium 50 MG/5 ML Vial ONE ×2 (01:46→10:42)
[2017-07-24] MEDS: cefOXitin 2 GM in Sodium Chloride 0.9% 50 ML IV SCH ×7 (02:16→21:22)
[2017-07-24] MEDS: Ondansetron 4 MG/2 ML SDV IVPUSH SCH ×6 (02:16→21:07)
[2017-07-24] MEDS: Pantoprazole 40 MG Vial IVPUSH SCH ×2 (05:46→16:06)
[2017-07-24] MEDS ORDERED: Potassium Chloride 20 MEQ, Lidocaine 1% 2 ML in Sodium Chloride 0.9% 100 ML IV ONE (06:19)
[2017-07-24] MEDS ORDERED: Potassium Chloride 100 ML ONE (06:20)
[2017-07-24] MEDS ORDERED: Meropenem 500 MG SDV ONE (06:48)
[2017-07-24] MEDS ORDERED: Ropivacaine 38 ML, Dexamethasone 8 MG, EPINEPHrine 0.4 MG, Sodium Chloride 0.9% 39.6 ML NERVRT SCH ×4 (09:00)
[2017-07-24] MEDS ORDERED: Lidocaine 2% 100 MG/5 ML Syringe IVPUSH ONE (09:00)
[2017-07-24] MEDS ORDERED: Ketamine 500 MG/5 ML MDV IV SCH (09:00)
[2017-07-24] MEDS ORDERED: Ondansetron 4 MG/2 ML SDV ONE (09:18)
[2017-07-24] MEDS ORDERED: Dexamethasone 4 MG/ML SDV ONE (09:18)
[2017-07-24] MEDS ORDERED: fentaNYL 250 MCG/5 ML SDV ONE ×2 (10:24→10:51)
[2017-07-24] MEDS ORDERED: Labetalol 20 MG/4 ML Syringe ONE (10:49)
[2017-07-24] MEDS ORDERED: Lactated Ringers 2,000 ML ONE (10:51)
[2017-07-24] MEDS: Topiramate 25 MG Tab PO SCH ×2 (13:06→21:08)
[2017-07-24] MEDS: Gabapentin 300 MG Cap PO SCH ×2 (13:06→16:22)
[2017-07-24] MEDS: lamoTRIgine 100 MG Tab PO SCH (13:06)
[2017-07-24] MEDS ORDERED: Dextrose 5%-Lactated Ringers 1,000 ML IV SCH (14:15)
[2017-07-24] MEDS: Albuterol/Ipratropium 3.0-0.5 MG/3 ML Neb Soln INH SCH ×2 (14:59→21:07)
[2017-07-24] MEDS ORDERED: hydrOXYzine HCl 100 MG/2 ML SDV IM PRN (15:00)
[2017-07-24] MEDS ORDERED: Albuterol/Ipratropium 3.0-0.5 MG/3 ML Neb Soln NEB PRN (15:00)
[2017-07-24] MEDS ORDERED: diphenhydrAMINE 50 MG/ML SDV IVPUSH PRN (15:00)
[2017-07-24] MEDS ORDERED: Labetalol 20 MG/4 ML Syringe IVPUSH PRN (15:00)
[2017-07-24] MEDS: Lidocaine 0.4%/D5W 2 GM/500 ML BAG IV SCH (16:04)
[2017-07-24] MEDS: metFORMIN 500 MG Tab PO SCH (16:06)
[2017-07-24] MEDS: MVI, Adult with Vitamin K 10 ML, Thiamine 100 MG, Chromium/Copper/Mang/Selen/Zn 1 ML in... IV SCH ×4 (16:08)
[2017-07-24] MEDS: Acetaminophen Soln 650 MG/20.3 ML UD Cup PO SCH (18:29)
[2017-07-24] MEDS ORDERED: Pantoprazole 40 MG Vial IVPUSH SCH (20:00)
[2017-07-24] MEDS: Heparin Sodium 5,000 Units/ML Vial SUBCUT SCH (21:07)
[2017-07-24] MEDS: Gabapentin 250 MG/5 ML Solution ML 470 ML Bottle PO SCH (21:08)
[2017-07-24] MEDS: FLUoxetine 20 MG Cap PO SCH (21:09)
[2017-07-24] MEDS: Metoclopramide 10 MG/2 ML SDV IVPUSH PRN (23:00)
[2017-07-25] MEDS: Acetaminophen Soln 650 MG/20.3 ML UD Cup PO SCH ×4 (01:17→18:13)
[2017-07-25] MEDS: Ondansetron 4 MG/2 ML SDV IVPUSH SCH ×3 (02:33→09:57)
[2017-07-25] MEDS: cefOXitin 2 GM in Sodium Chloride 0.9% 50 ML IV SCH ×3 (02:33→16:06)
[2017-07-25] MEDS: ClonazePAM 1 MG Tab PO PRN (02:41)
[2017-07-25] MEDS ORDERED: Iohexol 647 MG/ML 50 ML SDV PO PRN (02:42)
[2017-07-25] MEDS: Metoclopramide 10 MG/2 ML SDV IVPUSH PRN (04:56)
[2017-07-25] MEDS: Albuterol/Ipratropium 3.0-0.5 MG/3 ML Neb Soln INH SCH ×4 (07:21→20:48)
[2017-07-25] MEDS: Lidocaine 0.4%/D5W 2 GM/500 ML BAG IV SCH (07:41)
[2017-07-25] MEDS: Celecoxib 200 MG Cap PO SCH (07:46)
[2017-07-25] MEDS: metFORMIN 500 MG Tab PO SCH ×2 (07:46→18:13)
[2017-07-25] MEDS: Heparin Sodium 5,000 Units/ML Vial SUBCUT SCH ×2 (07:47→20:47)
[2017-07-25] MEDS: Gabapentin 250 MG/5 ML Solution ML 470 ML Bottle PO SCH ×3 (09:53→20:53)
[2017-07-25] MEDS: Topiramate 25 MG Tab PO SCH ×2 (09:56→20:47)
[2017-07-25] MEDS: SCOPOLAMINE PATCH CHECK TOP SCH (09:56)
[2017-07-25] MEDS ORDERED: Scopolamine 1.5 MG Transdermal Patch TOP SCH (11:00)
[2017-07-25] MEDS ORDERED: Ondansetron 4 MG/2 ML SDV IVPUSH PRN (11:00)
[2017-07-25] MEDS: Magnesium Sulfate/Water 2 GM in Premix Bag 1 BAG IV SCH ×3 (12:42→23:01)
[2017-07-25] MEDS: Pantoprazole 40 MG Vial IVPUSH SCH (15:59)
[2017-07-25] MEDS: MVI, Adult with Vitamin K 10 ML, Thiamine 100 MG, Chromium/Copper/Mang/Selen/Zn 1 ML in... IV SCH ×4 (15:59)
[2017-07-25] MEDS ORDERED: Dextrose 5%-Lactated Ringers 1,000 ML IV SCH (16:00)
[2017-07-25] MEDS: HYDROmorphone/Normal Saline 15 MG/30 ML PCA IV PRN (19:28)
[2017-07-25] MEDS: Temazepam 15 MG Cap PO PRN (20:47)
[2017-07-25] MEDS: FLUoxetine 20 MG Cap PO SCH (20:48)
[2017-07-26] MEDS: Acetaminophen Soln 650 MG/20.3 ML UD Cup PO SCH ×5 (00:48→17:07)
[2017-07-26] MEDS: Temazepam 15 MG Cap PO PRN ×2 (01:13→21:57)
[2017-07-26] MEDS: ClonazePAM 1 MG Tab PO PRN (03:25)
[2017-07-26] MEDS: Magnesium Sulfate/Water 2 GM in Premix Bag 1 BAG IV SCH ×3 (06:47→16:20)
[2017-07-26] MEDS: Celecoxib 200 MG Cap PO SCH (08:08)
[2017-07-26] MEDS: Albuterol/Ipratropium 3.0-0.5 MG/3 ML Neb Soln INH SCH ×5 (08:08→20:45)
[2017-07-26] MEDS: metFORMIN 500 MG Tab PO SCH ×2 (08:10→16:19)
[2017-07-26] MEDS: Heparin Sodium 5,000 Units/ML Vial SUBCUT SCH ×2 (08:11→20:41)
[2017-07-26] MEDS: SCOPOLAMINE PATCH CHECK TOP SCH (08:16)
[2017-07-26] MEDS: Gabapentin 250 MG/5 ML Solution ML 470 ML Bottle PO SCH ×3 (08:16→20:50)
[2017-07-26] MEDS: Topiramate 25 MG Tab PO SCH ×2 (08:17→20:43)
[2017-07-26] MEDS ORDERED: TRANSDERM SCOP CHECK TOP SCH (09:00)
[2017-07-26] MEDS ORDERED: Cyanocobalamin (Vitamin B12) 1,000 MCG/ML SDV IM ONE (09:00)
--- NOTE | 2017-07-26 09:03 | PN ---
DATE OF SERVICE: 07/25/2017 The patient has been afebrile with stable vital signs. She is little bit more alert today, but is still fairly sedated. I think this is more or less her baseline with her psychiatric medications on board, as this was how she presented to the hospital. At any rate, her oral intake was fair, around 400 mL; this was yesterday. Her urine output has been satisfactory and not overly high. I will leave the IV rate running a little fast until 1600 hours today. Otherwise, will move up to a step-2 diet today. She is having some underlying nausea, and we will add a scopolamine patch, in addition to Zofran p.r.n. Magnesium is low, that will be supplemented over the next 72 hours, and otherwise maximize activity and work with pulmonary toilet. Axel Mann MD /[id number]
--- NOTE | 2017-07-26 10:50 | CR ---
UGI wo KUB CLINICAL HISTORY: Status post Felicia-en-Y FINDINGS: Patient drank a small amount water-soluble contrast. There is no evidence of extravasation. The contrast does pass into the distal jejunum on delayed image. The there is moderate small bowel d istention which is likely some ileus. Surgical drains are in place IMPRESSION: Status post Felicia-en-Y with no evidence of extravasation or obstruction Small bowel distention is likely postop ileus
[2017-07-26] MEDS: oxyCODONE 5 MG Tab PO PRN ×2 (13:19→17:13)
[2017-07-26] MEDS: Ondansetron 4 MG Tab.DIS PO PRN ×2 (16:17→20:50)
--- NOTE | 2017-07-26 16:39 | PN ---
DATE OF SERVICE: 07/26/2017 SUBJECTIVE: Kenny is postop day 2. Pain has been controlled. Upper GI was normal. Oral intake 2119. SERGEY put out 20 mL of a light pink serosanguineous drainage. REVIEW OF SYSTEMS: Remainder of review of systems negative for any pertinent positives and negatives. OBJECTIVE: GENERAL: Kenny is a 31-year-old female. She is alert and orientated. Color pale. VITAL SIGNS: TPR 97.6, 81, 20; blood pressure 105/61. HEENT: Negative. NECK: Supple. HEART: Regular rate and rhythm. LUNGS: Clear. ABDOMEN: Dressings dry and intact. Abdominal binder is on. EXTREMITIES: Without peripheral edema. ASSESSMENT: Open gastric bypass revision, date 07/24/2017. PLAN: 1. Discontinue ORACLE DATABASE ANALYST and continuous pulse ox. 2. Rx oxycodone 5 mg 1 to 2 q.4 hours p.r.n. pain. 3. May shower. 4. It was checked that her sleeping medication Restoril was p.r.n., and it is. 5. Saline lock IV and good pulmonary toilet. We will evaluate p.r.n. or in the a.m. Bettina Cottrell PA-C /[id number]
[2017-07-26] MEDS: FLUoxetine 20 MG Cap PO SCH (20:42)
[2017-07-26] MEDS: Pantoprazole 40 MG Tab.CR PO SCH (20:42)
[2017-07-26] MEDS: HYDROmorphone 2 MG Tab PO PRN (20:52)
[2017-07-26] MEDS: lamoTRIgine 100 MG Tab PO SCH (21:30)
[2017-07-27] MEDS: ClonazePAM 1 MG Tab PO PRN (01:15)
[2017-07-27] MEDS: HYDROmorphone 2 MG Tab PO PRN ×6 (01:15→22:46)
[2017-07-27] MEDS: Acetaminophen Soln 650 MG/20.3 ML UD Cup PO SCH ×5 (01:21→23:48)
[2017-07-27] MEDS: Metoclopramide 10 MG/2 ML SDV IVPUSH PRN (03:26)
[2017-07-27] MEDS: Ondansetron 4 MG Tab.DIS PO PRN ×3 (05:10→19:20)
[2017-07-27] MEDS: Albuterol/Ipratropium 3.0-0.5 MG/3 ML Neb Soln INH SCH (07:38)
[2017-07-27] MEDS: metFORMIN 500 MG Tab PO SCH ×2 (08:31→17:42)
[2017-07-27] MEDS: lamoTRIgine 100 MG Tab PO SCH ×2 (08:31→20:46)
[2017-07-27] MEDS: Heparin Sodium 5,000 Units/ML Vial SUBCUT SCH ×2 (08:31→20:46)
[2017-07-27] MEDS: Topiramate 25 MG Tab PO SCH ×2 (08:31→20:48)
[2017-07-27] MEDS: Celecoxib 200 MG Cap PO SCH (08:31)
[2017-07-27] MEDS: Gabapentin 250 MG/5 ML Solution ML 470 ML Bottle PO SCH ×3 (08:32→20:55)
[2017-07-27] MEDS ORDERED: Bisacodyl 5 MG Tab PO SCH (09:00)
[2017-07-27] MEDS: Magnesium Hydroxide 400 MG/5 ML Susp 30 ML Cup PO SCH ×2 (09:50→20:47)
[2017-07-27] MEDS: Bisacodyl 5 MG Tab PO SCH ×2 (09:50→20:47)
--- NOTE | 2017-07-27 09:50 | PN ---
DATE OF SERVICE: 07/27/2017 The patient has been afebrile with stable vital signs. The oral intake has been very good. She has not moved her bowels as of yet. We will give her also scheduled milk of magnesia and Dulcolax oral tablets. She is not taking the at this point, these will need to be discontinued. She would like to have most of her meds as much as possible. Switch her to liquid form. We will have a pharmacy consult and see which of these medications are available in the liquid form that she is on chronically. She may be ready for discharge home tomorrow. Axel Mann MD /[id number]
[2017-07-27] MEDS ORDERED: Scopolamine 1.5 MG Transdermal Patch TRDERM SCH (10:00)
[2017-07-27] MEDS: Pantoprazole 40 MG Tab.CR PO SCH (20:47)
[2017-07-27] MEDS: FLUoxetine 20 MG Cap PO SCH (20:48)
[2017-07-27] MEDS: Temazepam 15 MG Cap PO PRN (20:54)
[2017-07-28] MEDS: Ondansetron 4 MG Tab.DIS PO PRN (01:44)
[2017-07-28] MEDS: ClonazePAM 1 MG Tab PO PRN (01:46)
[2017-07-28] MEDS: HYDROmorphone 2 MG Tab PO PRN ×2 (02:56→07:26)
[2017-07-28] MEDS: Acetaminophen Soln 650 MG/20.3 ML UD Cup PO SCH (05:51)
[2017-07-28] MEDS: Celecoxib 200 MG Cap PO SCH (07:28)
[2017-07-28] MEDS: Heparin Sodium 5,000 Units/ML Vial SUBCUT SCH (07:28)
[2017-07-28] MEDS: metFORMIN 500 MG Tab PO SCH (07:28)
[2017-07-28] MEDS: Magnesium Hydroxide 400 MG/5 ML Susp 30 ML Cup PO SCH ×2 (08:16→09:00)
[2017-07-28] MEDS: lamoTRIgine 100 MG Tab PO SCH (08:16)
[2017-07-28] MEDS: Bisacodyl 5 MG Tab PO SCH ×2 (08:16→08:30)
[2017-07-28] MEDS: Topiramate 25 MG Tab PO SCH (08:17)
[2017-07-28] MEDS: Gabapentin 250 MG/5 ML Solution ML 470 ML Bottle PO SCH (08:27)
[2017-07-28] MEDS ORDERED: TRANSDERM SCOP CHECK TOP SCH (09:00)
--- NOTE | 2017-07-28 16:19 | DISCH ---
ADMISSION DIAGNOSES: 1. Persistent nausea and vomiting. 2. History of seizure disorder. 3. Uncontrolled anxiety. 4. Abdominal ulcers. 5. Malaise and weakness. 6. Polycystic ovary. 7. Head trauma. 8. Migraine headache. 9. Attention deficit hyperactivity disorder. 10.Addiction. 11.Anxiety and depression. 12.Status post Felicia-en-Y gastric bypass surgery. 13.Unspecified surgical malabsorption. 14.B12 deficiency. DISCHARGE DIAGNOSES: 1. EGD, 07/23/2017, Adolfo Vaz MD. 2. Exploratory laparotomy with esophagogastrectomy with Felicia-en-Y esophagojejunostomy, en bloc extensive small bowel resection, separate small bowel resection with removal of adherent intraperitoneal mesh, excision of peritoneal nodule, repair of recurrent incisional hernia, and repair of incarcerated umbilical hernia for severe ischemia of the Felicia limb gastric bypass surgery with inflammation extending to adjacent gastric pouch, small bowel adherent to intraperitoneal mesh, recurrent incarcerated hernia and recurrent incarcerated umbilical hernia and nodular peritoneal mass of 5.5 cm. Date 07/24/2017; general anesthesia; Axel Mann MD. HISTORY: Kenny Hollins is a 31-year-old female who presented to the emergency room with nausea, vomiting, dehydration, and abdominal pain. After preoperative evaluation and discussion of possible risks and possible complications, she wished to proceed with surgical procedure. HOSPITAL COURSE: Kenny had her surgery on 07/24/2017. She had no operative complications. On postop day #1, vital signs were stable. Oral intake was around 400 mL. Urine output was adequate. She was started on a step-2 gastric bypass diet without cereal. On postop day #2, she was started on oral pain medication. On postop day #3, she received dietary instructions. She was given scheduled milk of mag and Dulcolax tabs. She started having bowel movement and was ready to be discharged on 07/28/2017. PHYSICAL EXAMINATION: GENERAL: Kenny is a 31-year-old female. VITAL SIGNS: Height is 5 feet 6 inches. Weight 171 pounds. TPR 98.8, 69, 16, and blood pressure 109/65. HEENT: Negative. NECK: Supple. HEART: Regular rate and rhythm. LUNGS: Clear. ABDOMEN: Aquacel dressing was removed. Midline SERGEY drain remained in. Keke intact. Abdominal binder has been on. EXTREMITIES: Without peripheral edema. DISPOSITION: Discharged to home. CONDITION: Stable and improving. FOLLOWUP APPOINTMENT: Bettina Cottrell PA-C, at [facility] on 08/04/2017 at 11 a.m. DISCHARGE MEDICATIONS: Home medications; 1. Tylenol 650 mg q.6 hours for 2 weeks. 2. Celebrex 200 mg oral daily, #14. 3. Dilaudid 2 mg 1 to 2 every 4 hours p.r.n. pain, #30. 4. Zofran ODT 4 mg sublingual q.4 hours p.r.n. nausea, #30. She is to resume taking her home medication of; 1. Clonazepam. 2. Klonopin 1 mg 4 times a day p.r.n. anxiety. 3. Prozac 60 mg at bedtime. 4. Neurontin 600 mg at bedtime. 5. Neurontin 300 mg twice daily. 6. Topiramate 50 mg twice daily. 7. Lamictal 200 mg oral twice daily. 8. Metformin 1000 mg oral twice daily. She is to stop taking postop bariatric vitamins until first postop appointment. DISCHARGE DIET: Step-2 gastric bypass diet with no cereal. Drink 8 to 10 glasses of water a day. ACTIVITY: No lifting greater than 10 pounds for 2 weeks[address] Driving, do not drive while on pain medication. Shower/bathing, may shower. DISCHARGE INSTRUCTIONS: Notify provider if any fever, increased pain, nausea, or vomiting. Keep site clean and dry. Wear abdominal binder for 2 weeks and then as tolerated. Use incentive spirometer 10 times every hour while awake.
--- NOTE | 2017-08-03 10:52 | OR ---
DATE OF PROCEDURE: 07/24/2017 PREOPERATIVE DIAGNOSIS: Upper abdominal pain with endoscopic finding of severe ischemia of Felicia limb. POSTOPERATIVE DIAGNOSES: 1. Severe ischemia of Fleicia limb of Felicia-en-Y gastric bypass with inflammatory extension to adjacent gastric pouch. 2. Small bowel adherent to the intraperitoneal mesh. 3. Recurrent incisional hernia. 4. Recurrent incarcerated umbilical hernia. 5. Nodular peritoneal mass. OPERATIVE PROCEDURES: 1. Exploratory laparotomy with: a. Esophagogastrectomy with Felicia-en-Y esophagojejunostomy (29514). b. En bloc extensive small bowel resection (entire Felicia limb) (77671). c. Separate small bowel resection (53742). d. Removal of adherent intraperitoneal mesh (71988). e. Excision of peritoneal nodule (68558). f. Repair of recurrent incisional hernia (62504). g. Repair of incarcerated umbilical hernia (88374). ANESTHESIA: General. TECHNICAL DATA ANALYST: CAREY Jacob. INDICATION FOR PROCEDURE: This is a 31-year-old, status post previous Felicia-en-Y gastric bypass, presenting with upper abdominal pain. The patient underwent an upper endoscopy with Dr. Vaz yesterday and was found to have extensive ischemia through the Felicia limb, and given this, the patient is to undergo exploratory laparotomy at this time. CT scan obtained yesterday did not show any obvious cause for the ischemia with the patient in general having intact celiac and mesenteric blood flow on the CT scan. The patient will likely need removal of most or all of the Felicia limb, as well as probably the gastric pouch. It is notable that the patient has had two complicated ulcers, one requiring surgery involving the gastric pouch in the past. Potential risks of the procedure including bleeding, infection, injury to the underlying viscera, problems with leaks from GI tract anastomosis or closures, as well as possibility of cardiopulmonary, septic, or hemorrhagic complications leading to were discussed, and the patient wishes to proceed. DETAILS OF PROCEDURE: The patient was taken to the operating room and placed in a supine position. After general endotracheal anesthesia was induced, the abdomen was prepped and draped. Using ultrasound guidance, bilateral subcostal transversus abdominis plane blocks were placed with continuous ultrasound guidance and with standard solution. The upper midline incision was then used and then carried down somewhat below the umbilicus from the xiphoid and was carried down through the full thickness abdominal wall, and at that point, some adhesions were taken down. The patient was noted to have recurrence of an incisional hernia above some intraperitoneal mesh in the upper aspect of the incision. This recurrent hernia was dissected free and the sac removed. At the level of the umbilicus, the patient also was noted to have an umbilical hernia, which was incarcerated, and those contents were likewise removed and sent for histologic evaluation. At this point, the patient was noted to have a loop of small bowel densely adherent to the intraperitoneal mesh. This was essentially fused to the psoas over a several centimeter length, and given this, this area was resected. The bowel proximal and distal to that was then divided with the GARIMA stapler and the underlying mesentery divided with mesenteric loads. The mesh was then removed from the abdominal wall, as this was obviously going to be a contaminated case, and the mesh along with the attached small bowel were then delivered from the field. Small bowel continuity at that site was then accomplished with a side-to- side enteroenterostomy using sequence of 60 mm GARIMA ashu, the angles anastomosed, and the mesenteric defect approximated with some 3-0 Vicryl stitch. Attention was then taken to the Felicia limb. The entire Felicia limb was quite edematous with some variability in terms of that and was also reddened. There was no obvious cause of the ischemia, although there was quite a bit in the way of adhesions. As those adhesions were taken up, it is possible that an area of kinking of the blood supply was present but not identified after beginning removal of the adhesions. At that point, decision was made to remove the entire Felicia limb, as this was showing redness and edema, i.e. ischemic changes through its entire length, at the jejunojejunostomy and biliopancreatic limb pattern. The jejunojejunostomy and the distal common limb were explored and were otherwise normal. Both sites had very good mesenteric pulses and satisfactory appearing blood supply. As one dissected the Felicia limb away from some adhesions, the Felicia limb was divided flush with the jejunojejunostomy, and the mesentery was then sequentially divided proximally up toward the gastrojejunostomy. This was also noted to be quite inflamed, and it was felt that this would be a poor location for a new anastomosis. Given this, the dissection then continued up around the lower esophagus, and the lower esophagus at that point was encircled and divided with 2 GARIMA black loads. The remaining attachments of the distal esophagus, gastric pouch, and small bowel were then divided with mesenteric and vascular loads, and the specimen consisting of the esophagogastrectomy along with the entire Felicia limb were then delivered from the field. At this point, the previous jejunojejunostomy was taken down with stapling of the biliopancreatic limb at the junction with the anastomosis at the point where the Felicia limb was going into the common limb. This maintained adequate lumen of the small bowel that had been the Felicia limb coming into the common limb. This was then traced down 100 cm further distally. At that point, the new jejunojejunostomy was established with a gzqo-ho-sehl enteroenterostomy between the biliopancreatic limb and the bowel at that level. This Felicia limb then came up to the divided esophagus quite easily in an anatomic position. The new jejunojejunostomy was accomplished with the standard [id number] GARIMA 60 mm staple sequence. The angles of anastomosis were reinforced with some 3-0 Vicryl stitch. The mesenteric defect in this case was closed with a 2-0 silk stitch to provide some permanency to that closure. The size of the esophagus was assessed at this point. It would be nice to get a 28 mm EEA anvil into that, but the esophagus was well too small for that. It did appear that it would likely accept a 25 mm EEA anvil. Given this, the anvil was attached to a Abbot sump type tube, brought down through the mouth and into the end of the divided esophagus, where it was brought out, and then the anvil was pulled down to within the end of the esophagus. The main body of the EEA stapler was then passed through an opening in the Felicia limb, brought up to the anvil and united with it, thus creating the esophagojejunostomy. Upon removal of the stapler, double donuts of mucosa were noted within. Small bowel was closed off with a vascular staple line. The esophagojejunostomy was then reinforced with some 3-0 Vicryl seromuscular stitch, along with fibrin sealant. At this point, no further intra-abdominal problems were noted. The umbilical hernia was then closed with a jzxeel-[id number]-umvzy stitch of #1 Vicryl stitch from within, and then the closure of the abdomen was accomplished with a running #2 Vicryl stitch. This included repair of the recurrent hernia, as well as the area where the mesh had been removed. The fascial closure appeared to be satisfactory at this point. A single 10-Kyrgyz Romulo-Choudhury drain had been through stab wound in the left upper quadrant. This was then positioned against the esophagojejunostomy. The subcutaneous tissue now was drained with a 10-Kyrgyz round Romulo-Choudhury drain, sutured below the incision, and the skin closed with a layer of 3- 0 Vicryl stitch deep and ashu for the skin. Dressing was applied. The patient was taken to the recovery room in satisfactory condition. There were no evident complications. Axel Mann MD /[id number]
== END 2017-07-28 10:05 | disposition home or self-care (01) | DRG 327 ==
LOC: JP.SDS 09:00 → JP.MS 09:00 → EDSTATUS 10:55 → JP.2SS 14:00
PROVIDERS: ADMIT Surgery; ATTEND Surgery
PROC: 0DJ08ZZ Inspection of Upper Intestinal Tract, Via Natural or Artificial Opening Endoscopic (ICD-10-PCS; principal; 2017-07-23)
PROC: 0DTA0ZZ Resection of Jejunum, Open Approach (ICD-10-PCS; 2017-07-24)
PROC: 0DB40ZZ Excision of Esophagogastric Junction, Open Approach (ICD-10-PCS; 2017-07-24)
PROC: 0WQF0ZZ Repair Abdominal Wall, Open Approach (ICD-10-PCS; 2017-07-24)
PROC: 0WQF0ZZ Repair Abdominal Wall, Open Approach (ICD-10-PCS; 2017-07-24)
PROC: 0WPF0YZ Removal of Other Device from Abdominal Wall, Open Approach (ICD-10-PCS; 2017-07-24)
PROC: 0D130ZA Bypass Lower Esophagus to Jejunum, Open Approach (ICD-10-PCS; 2017-07-24)
PROC: 3E0T3BZ Introduction of Anesthetic Agent into Peripheral Nerves and Plexi, Percutaneous Approach (ICD-10-PCS; 2017-07-24)
DX: K55.9 Vascular disorder of intestine, unspecified (principal); K42.0 Umbilical hernia with obstruction, without gangrene; K66.0 Peritoneal adhesions (postprocedural) (postinfection); K43.2 Incisional hernia without obstruction or gangrene; R22.9 Localized swelling, mass and lump, unspecified; F32.9 Major depressive disorder, single episode, unspecified; F41.9 Anxiety disorder, unspecified; G40.909 Epilepsy, unspecified, not intractable, without status epilepticus; Z87.11 Personal history of peptic ulcer disease; E53.8 Deficiency of other specified B group vitamins; Z87.891 Personal history of nicotine dependence; Z98.84 Bariatric surgery status; Z98.0 Intestinal bypass and anastomosis status; Z88.8 Allergy status to other drugs, medicaments and biological substances; E28.2 Polycystic ovarian syndrome; R53.1 Weakness; F19.21 Other psychoactive substance dependence, in remission; G43.909 Migraine, unspecified, not intractable, without status migrainosus; F90.9 Attention-deficit hyperactivity disorder, unspecified type
CPT/HCPCS: 36415; 74177; 74177-26; 74240; 74240-26; 80053; 80305; 81025; 82306; 82607; 82728; 82746; 83735; 84100; 84425; 85025; 85027; 88302; 88304; 88305; 88307; 94640; 94762; 97162-GP; A9270-GY; C9113; J0171; J0330; J0694; J1100; J1170; J1644; J2001; J2185; J2250; J2405; J2704; J2710; J2765; J2795; J3010; J3411; J3420; J3475; J3480; J7030; J7040; J7042; J7050; J7120; J7620; Q9967

== ENCOUNTER 2017-08-27 12:55 | Emergency (ER) | payer MEDICARE, MEDICAID ==
[2017-08-27] MEDS ORDERED: Acetaminophen 500 MG Tab PO ONE (14:12)
--- NOTE | 2017-08-27 14:19 | EDM.PDOC ---
ED HPI GENERAL MEDICAL PROBLEM - General Chief Complaint: Upper Extremity Injury/Pain Stated Complaint: FELL AND HURT BACK Time Seen by Provider: 08/27/17 14:00 Source of Information: Reports: Patient History Limitations: Reports: No Limitations - History of Present Illness INITIAL COMMENTS - FREE TEXT/NARRATIVE: Kenny presents today with complaints of pain to right upper back with radiation to the right upper chest. She states 3 days ago she went swimming, was walking down some stairs and fell backward striking her right upper back on the steps. She denies LOC, any other injury, SOB, difficulty breathing, fever, chills or any other concerns. She states she has not tried use of any OTC medications for her pain. right midback Pain Score (Numeric/FACES): 7 - Related Data Allergies Allergy/AdvReac Type Severity Reaction Status Date / Time bupropion [From Wellbutrin] Allergy Seizure Verified 08/27/17 13:50 paroxetine [From Paxil] Allergy Confusion Verified 08/27/17 13:50 pramipexole [From Mirapex] Allergy Rash Verified 08/27/17 13:50 quetiapine [From Seroquel] Allergy Tachycardia Verified 08/27/17 13:50 tramadol Allergy Seizure Verified 08/27/17 13:50 venlafaxine [From Effexor] Allergy Cannot Verified 08/27/17 13:50 Remember Home Meds: Home Meds ClonazePAM [KlonoPIN] 1 mg PO QID PRN 01/08/17 [History] FLUoxetine HCl [Prozac] 40 mg PO BEDTIME 01/08/17 [History] Gabapentin [Neurontin] 300 mg PO BID 01/08/17 [History] Gabapentin [Neurontin] 600 mg PO BEDTIME 01/08/17 [History] Topiramate [Topamax] 50 mg PO BID 01/08/17 [History] lamoTRIgine [Lamictal] 200 mg PO BID 01/08/17 [History] metFORMIN [Glucophage] 1,000 mg PO BIDMEALS 01/08/17 [History] Temazepam 15 - 30 mg PO BEDTIME 07/22/17 [History] Acetaminophen [Tylenol] 650 mg PO Q6H cup 07/28/17 [Rx] Ondansetron [Zofran ODT] 4 mg PO Q4H PRN #30 tab.dis 07/28/17 [Rx] Past Medical History HEENT History: Reports: None Gastrointestinal History: Reports: PUD, Other (See Below) Other Gastrointestinal History: abdominal hernia 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 TECHNICAN History: Reports: Endometriosis, Polycystic Ovaries Musculoskeletal History: Reports: Back Pain, Chronic, Fracture, Osteoporosis Neurological History: Reports: Head Trauma, Migraines, Seizure, Other (See Below ) Other Neuro History: epilepsy Psychiatric History: Reports: ADHD, Addiction, Anxiety, Depression Hematologic History: Reports: B12 Deficiency - Infectious Disease History Infectious Disease History: Reports: Chicken Pox - Past Surgical History HEENT Surgical History: Reports: Adenoidectomy, Myringotomy w Tube(s), Oral Surgery, Other (See Below) Other HEENT Surgeries/Procedures: rhinoplasty, jaw surgery. GI Surgical History: Reports: Bariatric Procedure, Cholecystectomy, Hernia Repair/Other, Other (See Below) Other GI Surgeries/Procedures: perforated bowel surgery from ulcers, panniculectomy with revision x 2. Musculoskeletal Surgical History: Reports: Other (See Below) Other Musculoskeletal Surgeries/Procedures:: "rods in Left leg", left hand surgery, 5 foot surgeries d/t flat feet. Social & Family History - Tobacco Use Smoking Status *Q: Never Smoker - Caffeine Use Caffeine Use: Reports: Soda - Recreational Drug Use Recreational Drug Use: No Review of Systems - Review of Systems Review Of Systems: See Below Constitutional: Denies: Diaphoresis, Fever, Weakness Eyes: Reports: No Symptoms Ears: Reports: No Symptoms Nose: Reports: No Symptoms Mouth/Throat: Reports: No Symptoms Respiratory: Denies: Shortness of Breath, Wheezing, Cough, Sputum, Hemoptysis Cardiovascular: Reports: No Symptoms GI/Abdominal: Reports: No Symptoms Genitourinary: Reports: No Symptoms Musculoskeletal: Reports: Other (right upper back pain with radiation to right upper chest. ) Skin: Denies: Diaphoresis, Bruising, Pruritis, Rash, Erythema, Wound, Lesions, Lumps Neurological: Reports: No Symptoms Psychiatric: Reports: No Symptoms ED EXAM, GENERAL - Physical Exam Exam: See Below Free Text/Narrative:: Kenny is an alert and oriented 31 year old female presenting for complaints of pain to right upper back pain after fall backward onto stairs 3 days ago. Exam Limited By: No Limitations General Appearance: Alert, WD/WN, No Apparent Distress Eye Exam: Bilateral Eye: EOMI, Normal Inspection, PERRL Ear Exam: Bilateral Ear: Auricle Normal, Canal Normal, TM normal Nose: Normal Inspection, Normal Mucosa, No Blood Throat/Mouth: Normal Inspection, Normal Lips, Normal Gums, Normal Oropharynx, Normal Voice, No Airway Compromise Head: Atraumatic, Normocephalic Neck: Normal Inspection, Supple, Non-Tender, Full Range of Motion. No: Lymphadenopathy (R), Lymphadenopathy (L) Respiratory/Chest: No Respiratory Distress, Lungs Clear, Normal Breath Sounds, No Accessory Muscle Use, Chest Non-Tender Cardiovascular: Normal Peripheral Pulses, Regular Rate, Rhythm, No Edema, No Murmur, No Rub Peripheral Pulses: 2+: Radial (L), Radial (R), Dorsalis Pedis (L), Dorsalis Pedis (R) GI/Abdominal: Normal Bowel Sounds, Soft, Non-Tender, No Organomegaly, No Distention, No Abnormal Bruit Back Exam: Normal Inspection, Full Range of Motion, Other (Tenderness to palpation right upper back, no crepitus, ecchymosis or edema noted. Scapula nontender with palpation. Pain increases with ROM of upper extremities. ). No : CVA Tenderness (R), CVA Tenderness (L) Extremities: Normal Inspection, Normal Range of Motion, Non-Tender, No Pedal Edema, Normal Capillary Refill Neurological: Alert, Oriented, CN II-XII Intact, Normal Cognition, Normal Gait, No Motor/Sensory Deficits Psychiatric: Normal Affect, Normal Mood Skin Exam: Warm, Dry, Intact, Normal Color, No Rash Lymphatic: No Adenopathy Course - Vital Signs Last Recorded V/S: Last Vital Signs Temp 35.8 C 08/27/17 13:19 Pulse 81 08/27/17 13:19 Resp 16 08/27/17 13:19 BP 123/78 08/27/17 13:19 Pulse Ox 96 08/27/17 13:19 - Orders/Labs/Meds Meds: Medications Discontinued Medications Generic Name Dose Route Start Last Admin Trade Name Freq PRN Reason Stop Dose Admin Acetaminophen 1,000 mg 08/27/17 14:12 08/27/17 14:34 Tylenol Extra Strength PO 08/27/17 14:13 1,000 mg ONETIME ONE Administration - Radiology Interpretation Free Text/Narrative:: Chest x-ray reviewed, wet read with no acute findings. Radiologist read pending. - Re-Assessments/Exams Free Text/Narrative Re-Assessment/Exam: 08/27/17 14:30 Discussed x-ray, assessment with patient, she is in agreement with plan. She will be discharged to home. Departure - Departure Time of Disposition: 14:38 Disposition: Home, Self-Care 01 Condition: Good Clinical Impression: Muscle strain of right upper back - Discharge Information Instructions: Muscle Strain Referrals: PCP,None [Primary Care Provider] - Forms: ED Department Discharge Additional Instructions: You have been evaluated and treated for a strain of the right upper back as a result of your recent fall. X-rays were completed with no acute findings. You may use ice and a hot pack off and on to your areas of pain. Take acetaminophen for pain as needed. You may also use aspercreme or equivalent as topical to area of pain up to 4 times a day. Follow up with your provider in 7 to 10 days for a recheck. Return for worsening, SOB or difficulty breathing. - Assessment/Plan Assessment:: Right upper back strain Plan: Patient evaluated and treated for a strain of the right upper back as a result of recent fall. X-rays were completed with no acute findings. May use ice and a hot pack off and on to areas of pain. Take acetaminophen for pain as needed. Follow up with provider in 7 to 10 days for a recheck. Return for worsening, SOB or difficulty breathing.
--- NOTE | 2017-08-27 14:42 | CR ---
Heart size within normal limits. No pneumothorax. Prominent vasculature within normal limits. Mild fa int density right upper lobe in the perihilar region. Difficult to exclude developing infiltrate.
== END 2017-08-27 14:49 | disposition home or self-care (01) ==
LOC: JP.ED 12:55
DX: S29.012A Strain of muscle and tendon of back wall of thorax, initial encounter (principal); Z88.5 Allergy status to narcotic agent; Z88.8 Allergy status to other drugs, medicaments and biological substances; Z79.899 Other long term (current) drug therapy; W10.9XXA Fall (on) (from) unspecified stairs and steps, initial encounter
CPT/HCPCS: 71046; 99284; A9270

== ENCOUNTER 2017-09-09 13:37 | Observation (INO) | payer MEDICARE, MEDICAID ==
[2017-09-09] MEDS ORDERED: Naloxone 0.4 MG/ML SDV IVPUSH ONE (14:00)
[2017-09-09] MEDS ORDERED: Sodium Chloride 0.9% 1,000 ML IV SCH ×2 (14:00→14:45)
--- NOTE | 2017-09-09 14:03 | EDM.PDOC ---
ED HPI GENERAL MEDICAL PROBLEM - General Chief Complaint: Drug or Alcohol Abuse Stated Complaint: [facility] Time Seen by Provider: 09/09/17 14:01 Source of Information: Reports: Patient History Limitations: Reports: No Limitations - History of Present Illness INITIAL COMMENTS - FREE TEXT/NARRATIVE: pt arrived with a history of drinking mouthwash for 3 days. She is very intoxiation . She is not able to walk and is feeling confused. Very little history can be obtained. Onset: Gradual, Other ( Past 3 days. ) Duration: Hour(s): Associated Symptoms: Reports: Confusion, Nausea/Vomiting - Related Data Allergies Allergy/AdvReac Type Severity Reaction Status Date / Time bupropion [From Wellbutrin] Allergy Seizure Verified 08/27/17 13:50 paroxetine [From Paxil] Allergy Confusion Verified 08/27/17 13:50 pramipexole [From Mirapex] Allergy Rash Verified 08/27/17 13:50 quetiapine [From Seroquel] Allergy Tachycardia Verified 08/27/17 13:50 tramadol Allergy Seizure Verified 08/27/17 13:50 venlafaxine [From Effexor] Allergy Cannot Verified 08/27/17 13:50 Remember Home Meds: Home Meds ClonazePAM [KlonoPIN] 1 mg PO QID PRN 01/08/17 [History] FLUoxetine HCl [Prozac] 40 mg PO BEDTIME 01/08/17 [History] Gabapentin [Neurontin] 300 mg PO BID 01/08/17 [History] Gabapentin [Neurontin] 600 mg PO BEDTIME 01/08/17 [History] Topiramate [Topamax] 50 mg PO BID 01/08/17 [History] lamoTRIgine [Lamictal] 200 mg PO BID 01/08/17 [History] metFORMIN [Glucophage] 1,000 mg PO BIDMEALS 01/08/17 [History] Temazepam 15 - 30 mg PO BEDTIME 07/22/17 [History] Acetaminophen [Tylenol] 650 mg PO Q6H cup 07/28/17 [Rx] Ondansetron [Zofran ODT] 4 mg PO Q4H PRN #30 tab.dis 07/28/17 [Rx] Past Medical History HEENT History: Reports: None Gastrointestinal History: Reports: PUD, Other (See Below) Other Gastrointestinal History: abdominal hernia [employer] History: Reports: Endometriosis, Polycystic Ovaries Musculoskeletal History: Reports: Back Pain, Chronic, Fracture, Osteoporosis Neurological History: Reports: Head Trauma, Migraines, Seizure, Other (See Below ) Other Neuro History: epilepsy Psychiatric History: Reports: ADHD, Addiction, Anxiety, Depression Hematologic History: Reports: B12 Deficiency - Infectious Disease History Infectious Disease History: Reports: Chicken Pox - Past Surgical History HEENT Surgical History: Reports: Adenoidectomy, Myringotomy w Tube(s), Oral Surgery, Other (See Below) Other HEENT Surgeries/Procedures: rhinoplasty, jaw surgery. GI Surgical History: Reports: Bariatric Procedure, Cholecystectomy, Hernia Repair/Other, Other (See Below) Other GI Surgeries/Procedures: perforated bowel surgery from ulcers, panniculectomy with revision x 2. Musculoskeletal Surgical History: Reports: Other (See Below) Other Musculoskeletal Surgeries/Procedures:: "rods in Left leg", left hand surgery, 5 foot surgeries d/t flat feet. Social & Family History - Caffeine Use Caffeine Use: Reports: Soda ED ROS GENERAL - Review of Systems Review Of Systems: See Below Constitutional: Reports: No Symptoms HEENT: Reports: No Symptoms Respiratory: Reports: Other (pt is doing ok with her resperations at this time. ) Endocrine: Reports: No Symptoms GI/Abdominal: Reports: Nausea : Reports: No Symptoms Musculoskeletal: Reports: No Symptoms Skin: Reports: No Symptoms - Physical Exam Exam: See Below Text/Narrative:: pt arrived with a history of drinking mouthwash for the past 3 days.\\ She is very intoxicated. Exam Limited By: No Limitations General Appearance: Alert, Anxious, Other ( pupils equal and reactive. ) Ears: Normal TMs Nose: Normal Inspection Throat/Mouth: Normal Inspection Head Exam: Atraumatic Neck: Normal Inspection Respiratory/Chest: No Respiratory Distress Cardiovascular: Regular Rate, Rhythm GI/Abdominal: Soft, Non-Tender (Female) Exam: Deferred Rectal (Female) Exam: Deferred Neuro Exam (Abbreviated): Alert, Oriented, Normal Cognition Back Exam: Normal Inspection Extremities: Normal Inspection Psychiatric: Normal Affect Course - Vital Signs Last Recorded V/S: Last Vital Signs Temp 36.3 C 09/09/17 13:52 Pulse 109 H 09/09/17 13:52 Resp 16 09/09/17 13:52 BP 120/79 09/09/17 13:52 Pulse Ox 96 09/09/17 13:52 - Orders/Labs/Meds Orders: Active Orders 24 hr Category Date Time Status EKG Documentation Completion [RC] ASDIRECTED Care 09/09/17 13:59 Active DRUG SCREEN, URINE [URCHEM] Stat Lab 09/09/17 15:10 Ordered UA W/MICROSCOPIC [URIN] Urgent Lab 09/09/17 15:10 Ordered Sodium Chloride 0.9% [Normal Saline] 1,000 ml Med 09/09/17 14:00 Active IV ASDIRECTED Sodium Chloride 0.9% [Normal Saline] 1,000 ml Med 09/09/17 14:45 Active IV ASDIRECTED EKG 12 Lead [EK] Routine Ther 09/09/17 13:58 Ordered Medication Orders Sodium Chloride (Normal Saline) 1,000 mls @ 999 mls/hr IV ASDIRECTED CORINE Last Admin: 09/09/17 14:08 Dose: 999 mls/hr Sodium Chloride (Normal Saline) 1,000 mls @ 999 mls/hr IV ASDIRECTED [facility] Labs: Laboratory Tests 09/09/17 09/09/17 09/09/17 Range/Units 13:58 13:58 14:00 WBC 8.2 (4.5-11.0) K/uL RBC 4.31 (3.30-5.50) M/uL Hgb 13.1 D (12.0-15.0) g/dL Hct 38.5 (36.0-48.0) % MCV 89 (80-98) fL MCH 30 (27-31) pg MCHC 34 (32-36) % Plt Count 371 (150-400) K/uL Neut % (Auto) 52 (36-66) % Lymph % (Auto) 40 (24-44) % [place] % (Auto) 8 H (2-6) % Eos % (Auto) 1 L (2-4) % Baso % (Auto) 1 (0-1) % Sodium 136 L (140-148) mmol/L Potassium 3.4 L (3.6-5.2) mmol/L Chloride 98 L (100-108) mmol/L Carbon Dioxide 25 (21-32) mmol/L Anion Gap 16.4 H (5.0-14.0) mmol/L BUN 8 D (7-18) mg/dL Creatinine 0.6 (0.6-1.0) mg/dL Est Cr Clr Drug Dosing 130.90 mL/min Estimated GFR (MDRD) > 60 (>60) Glucose 111 H (74-106) mg/dL Calcium 9.8 D (8.5-10.1) mg/dL Total Bilirubin 0.3 (0.2-1.0) mg/dL AST 43 H (15-37) U/L ALT 23 (12-78) U/L Alkaline Phosphatase 157 H (46-116) U/L Total Protein 7.2 (6.4-8.2) g/dL Albumin 3.5 (3.4-5.0) g/dL Globulin 3.7 H (2.3-3.5) g/dL Albumin/Globulin Ratio 1.0 L (1.2-2.2) Urine Color Urine Appearance Urine pH (4.5-8.0) Ur Specific [place] (1.008-1.030) Urine Protein (NEGATIVE) mg/dL Urine Glucose (UA) (NEGATIVE) mg/dL Urine Ketones (NEGATIVE) mg/dL Urine Occult Blood (NEGATIVE) Urine Nitrite (NEGATIVE) Urine Bilirubin (NEGATIVE) Urine Urobilinogen (NORMAL) mg/dL Ur Leukocyte Esterase (NEGATIVE) Urine RBC (0-5) Urine WBC (0-5) Ur Epithelial Cells Amorphous Sediment Urine Bacteria Urine Mucus Urine Opiates Screen (NEGATIVE) Ur Oxycodone Screen (NEGATIVE) Urine Methadone Screen (NEGATIVE) Ur Propoxyphene Screen (NEGATIVE) Ur Barbiturates Screen (NEGATIVE) Ur Tricyclics Screen (NEGATIVE) Ur Phencyclidine Scrn (NEGATIVE) Ur Amphetamine Screen (NEGATIVE) U Methamphetamines Scrn (NEGATIVE) Urine MDMA Screen (NEGATIVE) U Benzodiazepines Scrn (NEGATIVE) U Cocaine Metab Screen (NEGATIVE) U Marijuana (THC) Screen (NEGATIVE) Ethyl Alcohol 394 mg/dL 18 09/09/17 Range/Units 15:10 15:10 WBC (4.5-11.0) K/uL RBC (3.30-5.50) M/uL Hgb (12.0-15.0) g/dL Hct (36.0-48.0) % MCV (80-98) fL MCH (27-31) pg MCHC (32-36) % Plt Count (150-400) K/uL Neut % (Auto) (36-66) % Lymph % (Auto) (24-44) % [place] % (Auto) (2-6) % Eos % (Auto) (2-4) % Baso % (Auto) (0-1) % Sodium (140-148) mmol/L Potassium (3.6-5.2) mmol/L Chloride (100-108) mmol/L Carbon Dioxide (21-32) mmol/L Anion Gap (5.0-14.0) mmol/L BUN (7-18) mg/dL Creatinine (0.6-1.0) mg/dL Est Cr Clr Drug Dosing mL/min Estimated GFR (MDRD) (>60) Glucose (74-106) mg/dL Calcium (8.5-10.1) mg/dL Total Bilirubin (0.2-1.0) mg/dL AST (15-37) U/L ALT (12-78) U/L Alkaline Phosphatase (46-116) U/L Total Protein (6.4-8.2) g/dL Albumin (3.4-5.0) g/dL Globulin (2.3-3.5) g/dL Albumin/Globulin Ratio (1.2-2.2) Urine Color Yellow Urine Appearance Clear Urine pH 5.0 (4.5-8.0) Ur Specific [place] 1.010 (1.008-1.030) Urine Protein Negative (NEGATIVE) mg/dL Urine Glucose (UA) Normal (NEGATIVE) mg/dL Urine Ketones Negative (NEGATIVE) mg/dL Urine Occult Blood Negative (NEGATIVE) Urine Nitrite Negative (NEGATIVE) Urine Bilirubin Negative (NEGATIVE) Urine Urobilinogen Normal (NORMAL) mg/dL Ur Leukocyte Esterase Negative (NEGATIVE) Urine RBC 0-5 (0-5) Urine WBC 0-5 (0-5) Ur Epithelial Cells Rare Amorphous Sediment Not seen Urine Bacteria Not seen Urine Mucus Not seen Urine Opiates Screen Negative (NEGATIVE) Ur Oxycodone Screen Negative (NEGATIVE) Urine Methadone Screen Negative (NEGATIVE) Ur Propoxyphene Screen Negative (NEGATIVE) Ur Barbiturates Screen Negative (NEGATIVE) Ur Tricyclics Screen Negative (NEGATIVE) Ur Phencyclidine Scrn Negative (NEGATIVE) Ur Amphetamine Screen Negative (NEGATIVE) U Methamphetamines Scrn Negative (NEGATIVE) Urine MDMA Screen Negative (NEGATIVE) U Benzodiazepines Scrn Negative (NEGATIVE) U Cocaine Metab Screen Negative (NEGATIVE) U Marijuana (THC) Screen Negative (NEGATIVE) Ethyl Alcohol mg/dL Meds: Medications Generic Name Dose Route Start Last Admin Trade Name Freq PRN Reason Stop Dose Admin Sodium Chloride 1,000 mls @ 999 mls/hr 09/09/17 14:00 09/09/17 14:08 Normal Saline IV 999 mls/hr ASDIRECTED CORINE Administration Sodium Chloride 1,000 mls @ 999 mls/hr 09/09/17 14:45 Normal Saline IV ASDIRECTED CORINE Discontinued Medications Generic Name Dose Route Start Last Admin Trade Name Freq PRN Reason Stop Dose Admin Naloxone HCl 0.4 mg 09/09/17 14:00 09/09/17 14:07 Narcan IVPUSH 09/09/17 14:01 0.4 mg ONETIME ONE Administration - Re-Assessments/Exams Free Text/Narrative Re-Assessment/Exam: 09/09/17 15:20 pt arrived intoxicated. Her mother stated that she had told her that she was going to drink herself o . 09/09/17 15:31 Etoh level was .394 Departure - Departure Time of Disposition: 15:31 Disposition: Admitted As Inpatient 65 Condition: Fair Clinical Impression: Acute alcohol intoxication - Discharge Information Referrals: PCP,None [Primary Care Provider] - Forms: ED Department Discharge Care Plan Goals: admit to Dr paris. - My Orders Last 24 Hours: My Active Orders 09/09/17 13:58 EKG 12 Lead [EK] Routine 09/09/17 13:59 EKG Documentation Completion [RC] ASDIRECTED 09/09/17 14:00 Sodium Chloride 0.9% [Normal Saline] 1,000 ml IV ASDIRECTED 09/09/17 14:45 Sodium Chloride 0.9% [Normal Saline] 1,000 ml IV ASDIRECTED 09/09/17 15:10 DRUG SCREEN, URINE [URCHEM] Stat UA W/MICROSCOPIC [URIN] Urgent - Assessment/Plan Last 24 Hours: My Active Orders 09/09/17 13:58 EKG 12 Lead [EK] Routine 09/09/17 13:59 EKG Documentation Completion [RC] ASDIRECTED 09/09/17 14:00 Sodium Chloride 0.9% [Normal Saline] 1,000 ml IV ASDIRECTED 09/09/17 14:45 Sodium Chloride 0.9% [Normal Saline] 1,000 ml IV ASDIRECTED 09/09/17 15:10 DRUG SCREEN, URINE [URCHEM] Stat UA W/MICROSCOPIC [URIN] Urgent
--- NOTE | 2017-09-09 16:50 | PCM.HP ---
H&P History of Present Illness - General Date of Service: 09/09/17 Admit Problem/Dx: Admission Diagnosis/Problem Admission Diagnosis/Problem Suicidal ideation Source of Information: Patient History Limitations: Reports: Intoxication - History of Present Illness Initial Comments - Free Text/Narative: Ms. Hollins is a 31 y/o female that presents to the ED via ambulance for alcohol consumption times 3 days. Patient was found with multiple bottles of mouthwash and admits to drinking the mouthwash for intoxicating purposes. Patient states she is not able to drive to obtain alcohol. Patient states she self detoxed approximately one year ago and is a binge drinker. Patient states would like to be sober but it is difficult to detox. Patient is cooperative during history and physical exam. Patient however tried to elope after self removal of her IV. She was found, returned to the ED where she was placed on a hold by the ED provider due to her vulnerability and present suicidal ideation. Onset of Symptoms: Reports: Other Symptom Onset Date: 09/06/17 Duration of Symptoms: Reports: Day(s): Location: Reports: Generalized Associated Symptoms: Reports: Confusion, Other Other HPI/Comments: intoxication - Related Data Allergies/Adverse Reactions: Allergies Allergy/AdvReac Type Severity Reaction Status Date / Time bupropion [From Wellbutrin] Allergy Seizure Verified 08/27/17 13:50 paroxetine [From Paxil] Allergy Confusion Verified 08/27/17 13:50 pramipexole [From Mirapex] Allergy Rash Verified 08/27/17 13:50 quetiapine [From Seroquel] Allergy Tachycardia Verified 08/27/17 13:50 tramadol Allergy Seizure Verified 08/27/17 13:50 venlafaxine [From Effexor] Allergy Cannot Verified 08/27/17 13:50 Remember Home Medications: Home Meds ClonazePAM [KlonoPIN] 1 mg PO QID PRN 01/08/17 [History] FLUoxetine HCl [Prozac] 40 mg PO BEDTIME 01/08/17 [History] Gabapentin [Neurontin] 300 mg PO BID 01/08/17 [History] Gabapentin [Neurontin] 600 mg PO BEDTIME 01/08/17 [History] Topiramate [Topamax] 50 mg PO BID 01/08/17 [History] lamoTRIgine [Lamictal] 200 mg PO BID 01/08/17 [History] metFORMIN [Glucophage] 1,000 mg PO BIDMEALS 01/08/17 [History] Temazepam 15 - 30 mg PO BEDTIME 07/22/17 [History] Acetaminophen [Tylenol] 650 mg PO Q6H cup 07/28/17 [Rx] Ondansetron [Zofran ODT] 4 mg PO Q4H PRN #30 tab.dis 07/28/17 [Rx] Past Medical History HEENT History: Reports: None Gastrointestinal History: Reports: Inflammatory Bowel Disease, PUD Other Gastrointestinal History: abdominal hernia 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: Reports: Endometriosis, Polycystic Ovaries Musculoskeletal History: Reports: Fracture, Osteoporosis Neurological History: Reports: Head Trauma, Migraines, Seizure, Other (See Below ) Other Neuro History: epilepsy Psychiatric History: Reports: ADHD, Addiction, Anxiety, Depression Endocrine/Metabolic History: Reports: Diabetes, Type II Hematologic History: Reports: B12 Deficiency - Infectious Disease History Infectious Disease History: Reports: Chicken Pox - Past Surgical History HEENT Surgical History: Reports: None, Adenoidectomy, Myringotomy w Tube(s), Oral Surgery, Other (See Below) Other HEENT Surgeries/Procedures: rhinoplasty, jaw surgery. Cardiovascular Surgical History: Reports: None Respiratory Surgical History: Reports: None GI Surgical History: Reports: Bariatric Procedure, Cholecystectomy, Hernia Repair/Other, Other (See Below) Other GI Surgeries/Procedures: perforated bowel surgery from ulcers, panniculectomy with revision x 2. Musculoskeletal Surgical History: Reports: Other (See Below) Other Musculoskeletal Surgeries/Procedures:: "rods in Left leg", left hand surgery, 5 foot surgeries d/t flat feet. Social & Family History - Tobacco Use Smoking Status *Q: Former Smoker Tobacco Use Within Last Twelve Months: Cigarettes - Caffeine Use Caffeine Use: Reports: Soda - Alcohol Use Alcohol Use Frequency: Binges H&P Review of Systems - Review of Systems: Review Of Systems: See Below General: Reports: No Symptoms HEENT: Reports: No Symptoms. Denies: Dysphasia Pulmonary: Denies: Shortness of Breath Cardiovascular: Reports: No Symptoms. Denies: Chest Pain, Edema Gastrointestinal: Reports: No Symptoms. Denies: Abdominal Pain Genitourinary: Reports: No Symptoms Musculoskeletal: Reports: Back Pain Skin: Reports: No Symptoms Psychiatric: Reports: Confusion, Depression Neurological: Reports: Confusion Exam - Exam Exam: See Below - Vital Signs Vital Signs: Last Vital Signs Temp 36.3 C 09/09/17 13:52 Pulse 109 H 09/09/17 13:52 Resp 16 09/09/17 13:52 BP 120/79 09/09/17 13:52 Pulse Ox 96 09/09/17 13:52 Weight: 150 kg - Exam General: Oriented, Cooperative HEENT: PERRLA, Hearing Intact Neck: Supple Lungs: Clear to Auscultation Cardiovascular: Regular Rate GI/Abdominal Exam: Normal Bowel Sounds, Soft, Non-Tender Back Exam: Normal Inspection Extremities: No Pedal Edema Skin: Warm, Dry Neurological: Strength Equal Bilateral Neuro Extensive - Mental Status: Alert, Oriented x3 Psychiatric: Alert, Anxious - Patient Data Lab Results Last 24 hrs: Laboratory Results - last 24 hr 09/09/17 09/09/17 09/09/17 Range/Units 13:58 13:58 14:00 WBC 8.2 (4.5-11.0) K/uL RBC 4.31 (3.30-5.50) M/uL Hgb 13.1 D (12.0-15.0) g/dL Hct 38.5 (36.0-48.0) % MCV 89 (80-98) fL MCH 30 (27-31) pg MCHC 34 (32-36) % Plt Count 371 (150-400) K/uL Neut % (Auto) 52 (36-66) % Lymph % (Auto) 40 (24-44) % [place] % (Auto) 8 H (2-6) % Eos % (Auto) 1 L (2-4) % Baso % (Auto) 1 (0-1) % Sodium 136 L (140-148) mmol/L Potassium 3.4 L (3.6-5.2) mmol/L Chloride 98 L (100-108) mmol/L Carbon Dioxide 25 (21-32) mmol/L Anion Gap 16.4 H (5.0-14.0) mmol/L BUN 8 D (7-18) mg/dL Creatinine 0.6 (0.6-1.0) mg/dL Est Cr Clr Drug Dosing 130.90 mL/min Estimated GFR (MDRD) > 60 (>60) Glucose 111 H (74-106) mg/dL Calcium 9.8 D (8.5-10.1) mg/dL Total Bilirubin 0.3 (0.2-1.0) mg/dL AST 43 H (15-37) U/L ALT 23 (12-78) U/L Alkaline Phosphatase 157 H (46-116) U/L Total Protein 7.2 (6.4-8.2) g/dL Albumin 3.5 (3.4-5.0) g/dL Globulin 3.7 H (2.3-3.5) g/dL Albumin/Globulin Ratio 1.0 L (1.2-2.2) Urine Color Urine Appearance Urine pH (4.5-8.0) Ur Specific [place] (1.008-1.030) Urine Protein (NEGATIVE) mg/dL Urine Glucose (UA) (NEGATIVE) mg/dL Urine Ketones (NEGATIVE) mg/dL Urine Occult Blood (NEGATIVE) Urine Nitrite (NEGATIVE) Urine Bilirubin (NEGATIVE) Urine Urobilinogen (NORMAL) mg/dL Ur Leukocyte Esterase (NEGATIVE) Urine RBC (0-5) Urine WBC (0-5) Ur Epithelial Cells Amorphous Sediment Urine Bacteria Urine Mucus Urine Opiates Screen (NEGATIVE) Ur Oxycodone Screen (NEGATIVE) Urine Methadone Screen (NEGATIVE) Ur Propoxyphene Screen (NEGATIVE) Ur Barbiturates Screen (NEGATIVE) Ur Tricyclics Screen (NEGATIVE) Ur Phencyclidine Scrn (NEGATIVE) Ur Amphetamine Screen (NEGATIVE) U Methamphetamines Scrn (NEGATIVE) Urine MDMA Screen (NEGATIVE) U Benzodiazepines Scrn (NEGATIVE) U Cocaine Metab Screen (NEGATIVE) U Marijuana (THC) Screen (NEGATIVE) Ethyl Alcohol 394 mg/dL 09/09/17 09/09/17 Range/Units 15:10 15:10 WBC (4.5-11.0) K/uL RBC (3.30-5.50) M/uL Hgb (12.0-15.0) g/dL Hct (36.0-48.0) % MCV (80-98) fL MCH (27-31) pg MCHC (32-36) % Plt Count (150-400) K/uL Neut % (Auto) (36-66) % Lymph % (Auto) (24-44) % [place] % (Auto) (2-6) % Eos % (Auto) (2-4) % Baso % (Auto) (0-1) % Sodium (140-148) mmol/L Potassium (3.6-5.2) mmol/L Chloride (100-108) mmol/L Carbon Dioxide (21-32) mmol/L Anion Gap (5.0-14.0) mmol/L BUN (7-18) mg/dL Creatinine (0.6-1.0) mg/dL Est Cr Clr Drug Dosing mL/min Estimated GFR (MDRD) (>60) Glucose (74-106) mg/dL Calcium (8.5-10.1) mg/dL Total Bilirubin (0.2-1.0) mg/dL AST (15-37) U/L ALT (12-78) U/L Alkaline Phosphatase (46-116) U/L Total Protein (6.4-8.2) g/dL Albumin (3.4-5.0) g/dL Globulin (2.3-3.5) g/dL Albumin/Globulin Ratio (1.2-2.2) Urine Color Yellow Urine Appearance Clear Urine pH 5.0 (4.5-8.0) Ur Specific [place] 1.010 (1.008-1.030) Urine Protein Negative (NEGATIVE) mg/dL Urine Glucose (UA) Normal (NEGATIVE) mg/dL Urine Ketones Negative (NEGATIVE) mg/dL Urine Occult Blood Negative (NEGATIVE) Urine Nitrite Negative (NEGATIVE) Urine Bilirubin Negative (NEGATIVE) Urine Urobilinogen Normal (NORMAL) mg/dL Ur Leukocyte Esterase Negative (NEGATIVE) Urine RBC 0-5 (0-5) Urine WBC 0-5 (0-5) Ur Epithelial Cells Rare Amorphous Sediment Not seen Urine Bacteria Not seen Urine Mucus Not seen Urine Opiates Screen Negative (NEGATIVE) Ur Oxycodone Screen Negative (NEGATIVE) Urine Methadone Screen Negative (NEGATIVE) Ur Propoxyphene Screen Negative (NEGATIVE) Ur Barbiturates Screen Negative (NEGATIVE) Ur Tricyclics Screen Negative (NEGATIVE) Ur Phencyclidine Scrn Negative (NEGATIVE) Ur Amphetamine Screen Negative (NEGATIVE) U Methamphetamines Scrn Negative (NEGATIVE) Urine MDMA Screen Negative (NEGATIVE) U Benzodiazepines Scrn Negative (NEGATIVE) U Cocaine Metab Screen Negative (NEGATIVE) U Marijuana (THC) Screen Negative (NEGATIVE) Ethyl Alcohol mg/dL Result Diagrams: 09/09/17 13:58 09/09/17 13:58 *Q Meaningful Use (ADM) - VTE *Q VTE Mechanical Contraindications *Q: At Risk for Falls - VTE Risk Assess *Q Each Risk Factor Represents 1 Point: None, History Inflammatory Bowel Disease Total Score 1 Point Risk Factors: 1 Problem List Initiated/Reviewed/Updated: Yes Orders Last 24hrs: Active Orders 24 hr Category Date Time Status Patient Status Manage Transfer [TRANSFER] Routine ADT 09/09/17 15:51 Active EKG Documentation Completion [RC] ASDIRECTED Care 09/09/17 13:59 Active DRUG SCREEN, URINE [URCHEM] Stat Lab 09/09/17 15:10 Ordered UA W/MICROSCOPIC [URIN] Urgent Lab 09/09/17 15:10 Ordered Sodium Chloride 0.9% [Normal Saline] 1,000 ml Med 09/09/17 14:00 Active IV ASDIRECTED Sodium Chloride 0.9% [Normal Saline] 1,000 ml Med 09/09/17 14:45 Active IV ASDIRECTED Resuscitation Status Routine Resus Stat 09/09/17 16:00 Ordered EKG 12 Lead [EK] Routine Ther 09/09/17 13:58 Ordered Medication Orders Sodium Chloride (Normal Saline) 1,000 mls @ 999 mls/hr IV ASDIRECTED [facility]–1983 Last Admin: 09/09/17 14:08 Dose: 999 mls/hr Sodium Chloride (Normal Saline) 1,000 mls @ 999 mls/hr IV ASDIRECTED [facility] Last Admin: 09/09/17 16:30 Dose: 999 mls/hr Assessment/Plan Comment:: Assessment and Plan My assessment - Pt will be admitted to observation status with suicide precautions. Suicide Ideation -suicide precautions with visual observation and 15 min checks -Mental Health Crisis team evaluation in am ETOH Intoxication -fluid resuscitation DMII -continue metformin Seizure disorder -continue lamictil and topamax Hypokalemia -Potassium 40mEq po -BMP in am Maintenance issues - -DVT-prophylaxis - not indicated pt is fall risk 2nd to intoxication -GI Prophylaxix - not indicated -Nutrition - constant carb diet -[place] catheter - not indicated CODE STATUS - FULL CODE Admission justification - the patient is admitted for observation status after one night stay Anticipate - discharge pending evaluation by crisis team Primary Care Provider - No primary care provider
[2017-09-09] MEDS ORDERED: Non-Formulary Medication 1 Each (Metformin [Glucophage] 1,000 MG) PO SCH (17:22)
[2017-09-09] MEDS ORDERED: Acetaminophen 325 MG Tab PO PRN (17:22)
[2017-09-09] MEDS ORDERED: Sodium Chloride 0.9% 10 ML Syringe FLUSH PRN (17:22)
[2017-09-09] MEDS ORDERED: Potassium Chloride 20 MEQ Tab.ER PO ONE (18:00)
[2017-09-09] MEDS: metFORMIN 500 MG Tab PO SCH (18:21)
[2017-09-09] MEDS: Ondansetron 4 MG/2 ML SDV IV PRN (18:32)
[2017-09-09] MEDS ORDERED: Metoprolol Tartrate 50 MG Tab PO ONE (19:42)
[2017-09-09] MEDS: Topiramate 25 MG Tab PO SCH (20:11)
[2017-09-09] MEDS: lamoTRIgine 100 MG Tab PO SCH (20:11)
[2017-09-09] MEDS: Gabapentin 300 MG Cap PO SCH (20:12)
[2017-09-09] MEDS ORDERED: FLUoxetine 20 MG Cap PO SCH (21:00)
[2017-09-09] MEDS ORDERED: TOPIRAMATE 50 MG PO SCH (21:00)
[2017-09-09] MEDS ORDERED: Gabapentin 300 MG Cap PO SCH (21:00)
[2017-09-09] MEDS: Sodium Chloride 0.9% 1,000 ML IV SCH (21:19)
[2017-09-10] MEDS: Ondansetron 4 MG/2 ML SDV IV PRN ×2 (02:28→08:23)
[2017-09-10] MEDS: Sodium Chloride 0.9% 1,000 ML IV SCH (05:11)
[2017-09-10] MEDS: metFORMIN 500 MG Tab PO SCH (09:14)
[2017-09-10] MEDS: Topiramate 25 MG Tab PO SCH (09:15)
[2017-09-10] MEDS: ClonazePAM 1 MG Tab PO PRN ×2 (09:15→12:37)
[2017-09-10] MEDS: lamoTRIgine 100 MG Tab PO SCH (09:15)
[2017-09-10] MEDS: Gabapentin 300 MG Cap PO SCH (09:21)
--- NOTE | 2017-09-10 12:15 | PCM.DCSUM1 ---
Discharge Summary - Hospital Course Brief History: This patient is a 31-year-old woman who was admitted through the emergency department with acute alcohol intoxication and suicidal ideation. - Discharge Data Discharge Date: 09/10/17 Discharge Disposition: Home, Self-Care 01 Condition: Good - Discharge Diagnosis/Problem(s) (1) Suicidal ideation SNOMED Code(s): 8220250 ICD Code: R45.851 - SUICIDAL IDEATIONS Status: Acute Current Visit: Yes (2) Acute alcohol intoxication SNOMED Code(s): 05949230 ICD Code: F10.929 - ALCOHOL USE, UNSPECIFIED WITH INTOXICATION, UNSPECIFIED Status: Acute Current Visit: Yes - Patient Summary/Data Hospital Course: Ms. Hollins is a 31 y/o female that presents to the ED via ambulance for alcohol consumption times 3 days. Patient was found with multiple bottles of mouthwash and admits to drinking the mouthwash for intoxicating purposes. Patient states she is not able to drive to obtain alcohol. Patient states she self detoxed approximately one year ago and is a binge drinker. Patient states would like to be sober but it is difficult to detox. Patient is cooperative during history and physical exam. Patient however tried to elope after self removal of her IV. She was found, returned to the ED where she was placed on a hold by the ED provider due to her vulnerability and present suicidal ideation. She was admitted to the intensive care unit and placed on suicide precautions, risk for alcohol withdrawal was felt to be low because her history of binge drinking. By the following morning alcohol intoxication had resolved. She experienced some symptoms of nausea that was treated with Zofran. Assessment was performed by a mental health worker from the crisis team, after assessment she was not felt to be a suicide risk and recommendation was for discharge back to the community. She was instructed to avoid all alcohol use. Follow-up with mental health providers will be arranged by the crisis team and they will be contacting the patient on September 13. Activity will be as tolerated and she will resume her usual diet. - Patient Instructions Diet: Usual Diet as Tolerated Activity: As Tolerated Other/Special Instructions: Crisis team will arrange for follow-up with mental health providers and initiation of a [facility] worker. They will follow-up with the patient on September 13. - Discharge Plan Home Medications: Home Meds ClonazePAM [KlonoPIN] 1 mg PO QID PRN 10/13/17 [History] FLUoxetine HCl [Prozac] 40 mg PO BEDTIME 01/08/17 [History] Gabapentin [Neurontin] 300 mg PO BID 01/08/17 [History] Gabapentin [Neurontin] 600 mg PO BEDTIME 01/08/17 [History] Topiramate [Topamax] 50 mg PO BID 01/08/17 [History] lamoTRIgine [Lamictal] 200 mg PO BID 01/08/17 [History] metFORMIN [Glucophage] 1,000 mg PO BIDMEALS 01/08/17 [History] Temazepam 15 - 30 mg PO BEDTIME 07/22/17 [History] Acetaminophen [Tylenol] 650 mg PO Q6H cup 07/28/17 [Rx] Ondansetron [Zofran ODT] 4 mg PO Q4H PRN #30 tab.dis 07/28/17 [Rx] Referrals: PCP,None [Primary Care Provider] - - Discharge Summary/Plan Comment DC Time >30 min.: No - Patient Data Vitals - Most Recent: Last Vital Signs Temp 96.8 F 09/10/17 08:00 Pulse 118 H 09/09/17 20:12 Resp 12 09/10/17 10:00 BP 130/82 09/10/17 10:00 Pulse Ox 97 09/10/17 10:00 Weight - Most Recent: 330 lb 11.094 oz I&O - Last 24 hours: Intake & Output 09/09/17 09/10/17 09/10/17 22:59 06:59 14:59 Intake Total 240 2771 Balance 240 2771 Lab Results - Last 24 hrs: Laboratory Results - last 24 hr 09/09/17 09/09/17 09/09/17 Range/Units 13:58 13:58 14:00 WBC 8.2 (4.5-11.0) K/uL RBC 4.31 (3.30-5.50) M/uL Hgb 13.1 D (12.0-15.0) g/dL Hct 38.5 (36.0-48.0) % MCV 89 (80-98) fL MCH 30 (27-31) pg MCHC 34 (32-36) % Plt Count 371 (150-400) K/uL Neut % (Auto) 52 (36-66) % Lymph % (Auto) 40 (24-44) % Swift % (Auto) 8 H (2-6) % Eos % (Auto) 1 L (2-4) % Baso % (Auto) 1 (0-1) % Sodium 136 L (140-148) mmol/L Potassium 3.4 L (3.6-5.2) mmol/L Chloride 98 L (100-108) mmol/L Carbon Dioxide 25 (21-32) mmol/L Anion Gap 16.4 H (5.0-14.0) mmol/L BUN 8 D (7-18) mg/dL Creatinine 0.6 (0.6-1.0) mg/dL Est Cr Clr Drug Dosing 130.90 mL/min Estimated GFR (MDRD) > 60 (>60) Glucose 111 H (74-106) mg/dL Calcium 9.8 D (8.5-10.1) mg/dL Total Bilirubin 0.3 (0.2-1.0) mg/dL AST 43 H (15-37) U/L ALT 23 (12-78) U/L Alkaline Phosphatase 157 H (46-116) U/L Total Protein 7.2 (6.4-8.2) g/dL Albumin 3.5 (3.4-5.0) g/dL Globulin 3.7 H (2.3-3.5) g/dL Albumin/Globulin Ratio 1.0 L (1.2-2.2) Urine Color Urine Appearance Urine pH (4.5-8.0) Ur Specific Warren (1.008-1.030) Urine Protein (NEGATIVE) mg/dL Urine Glucose (UA) (NEGATIVE) mg/dL Urine Ketones (NEGATIVE) mg/dL Urine Occult Blood (NEGATIVE) Urine Nitrite (NEGATIVE) Urine Bilirubin (NEGATIVE) Urine Urobilinogen (NORMAL) mg/dL Ur Leukocyte Esterase (NEGATIVE) Urine RBC (0-5) Urine WBC (0-5) Ur Epithelial Cells Amorphous Sediment Urine Bacteria Urine Mucus Urine Opiates Screen (NEGATIVE) Ur Oxycodone Screen (NEGATIVE) Urine Methadone Screen (NEGATIVE) Ur Propoxyphene Screen (NEGATIVE) Ur Barbiturates Screen (NEGATIVE) Ur Tricyclics Screen (NEGATIVE) Ur Phencyclidine Scrn (NEGATIVE) Ur Amphetamine Screen (NEGATIVE) U Methamphetamines Scrn (NEGATIVE) Urine MDMA Screen (NEGATIVE) U Benzodiazepines Scrn (NEGATIVE) U Cocaine Metab Screen (NEGATIVE) U Marijuana (THC) Screen (NEGATIVE) Ethyl Alcohol 394 mg/dL 09/09/17 09/09/17 09/10/17 Range/Units 15:10 15:10 05:21 WBC (4.5-11.0) K/uL RBC (3.30-5.50) M/uL Hgb (12.0-15.0) g/dL Hct (36.0-48.0) % MCV (80-98) fL MCH (27-31) pg MCHC (32-36) % Plt Count (150-400) K/uL Neut % (Auto) (36-66) % Lymph % (Auto) (24-44) % Swift % (Auto) (2-6) % Eos % (Auto) (2-4) % Baso % (Auto) (0-1) % Sodium 134 L (140-148) mmol/L Potassium 4.1 (3.6-5.2) mmol/L Chloride 102 (100-108) mmol/L Carbon Dioxide 23 (21-32) mmol/L Anion Gap 13.1 (5.0-14.0) mmol/L BUN 7 (7-18) mg/dL Creatinine 0.6 (0.6-1.0) mg/dL Est Cr Clr Drug Dosing 130.90 mL/min Estimated GFR (MDRD) > 60 (>60) Glucose 77 (74-106) mg/dL Calcium 7.8 L D (8.5-10.1) mg/dL Total Bilirubin (0.2-1.0) mg/dL AST (15-37) U/L ALT (12-78) U/L Alkaline Phosphatase (46-116) U/L Total Protein (6.4-8.2) g/dL Albumin (3.4-5.0) g/dL Globulin (2.3-3.5) g/dL Albumin/Globulin Ratio (1.2-2.2) Urine Color Yellow Urine Appearance Clear Urine pH 5.0 (4.5-8.0) Ur Specific Warren 1.010 (1.008-1.030) Urine Protein Negative (NEGATIVE) mg/dL Urine Glucose (UA) Normal (NEGATIVE) mg/dL Urine Ketones Negative (NEGATIVE) mg/dL Urine Occult Blood Negative (NEGATIVE) Urine Nitrite Negative (NEGATIVE) Urine Bilirubin Negative (NEGATIVE) Urine Urobilinogen Normal (NORMAL) mg/dL Ur Leukocyte Esterase Negative (NEGATIVE) Urine RBC 0-5 (0-5) Urine WBC 0-5 (0-5) Ur Epithelial Cells Rare Amorphous Sediment Not seen Urine Bacteria Not seen Urine Mucus Not seen Urine Opiates Screen Negative (NEGATIVE) Ur Oxycodone Screen Negative (NEGATIVE) Urine Methadone Screen Negative (NEGATIVE) Ur Propoxyphene Screen Negative (NEGATIVE) Ur Barbiturates Screen Negative (NEGATIVE) Ur Tricyclics Screen Negative (NEGATIVE) Ur Phencyclidine Scrn Negative (NEGATIVE) Ur Amphetamine Screen Negative (NEGATIVE) U Methamphetamines Scrn Negative (NEGATIVE) Urine MDMA Screen Negative (NEGATIVE) U Benzodiazepines Scrn Negative (NEGATIVE) U Cocaine Metab Screen Negative (NEGATIVE) U Marijuana (THC) Screen Negative (NEGATIVE) Ethyl Alcohol mg/dL Med Orders - Current: Current Medications Acetaminophen (Tylenol) 650 mg PO Q4H PRN PRN Reason: Pain (Mild 1-3)/fever Last Admin: 09/10/17 03:47 Dose: 650 mg Clonazepam (Klonopin) 1 mg PO QID PRN PRN Reason: Anxiety Last Admin: 09/10/17 09:15 Dose: 1 mg Fluoxetine HCl (Prozac) 40 mg PO BEDTIME [facility] Last Admin: 09/09/17 20:11 Dose: 40 mg Gabapentin (Neurontin) 300 mg PO BID [facility] Last Admin: 09/10/17 09:21 Dose: 300 mg Gabapentin (Neurontin) 600 mg PO BEDTIME [facility] Last Admin: 09/09/17 20:12 Dose: 600 mg Sodium Chloride (Normal Saline) 1,000 mls @ 125 mls/hr IV ASDIRECTED [facility] Last Admin: 09/10/17 05:11 Dose: 125 mls/hr Lamotrigine (Lamotrigine) 200 mg PO BID [facility] Last Admin: 09/10/17 09:15 Dose: 200 mg Metformin HCl (Glucophage) 1,000 mg PO BIDMEALS [facility] Last Admin: 09/10/17 09:14 Dose: 1,000 mg Ondansetron HCl (Zofran) 4 mg IV Q4H PRN PRN Reason: Nausea/Vomiting Last Admin: 09/10/17 08:23 Dose: 4 mg Sodium Chloride (Saline Flush) 10 ml FLUSH ASDIRECTED PRN PRN Reason: Keep Vein Open Topiramate (Topamax) 50 mg PO BID [facility] Last Admin: 09/10/17 09:15 Dose: 50 mg Discontinued Medications Sodium Chloride (Normal Saline) 1,000 mls @ 999 mls/hr IV ASDIRECTED [facility] Last Admin: 09/09/17 14:08 Dose: 999 mls/hr Sodium Chloride (Normal Saline) 1,000 mls @ 999 mls/hr IV ASDIRECTED [facility] Last Admin: 09/09/17 16:30 Dose: 999 mls/hr Metoprolol Tartrate (Lopressor) 50 mg PO ONETIME ONE Stop: 09/09/17 19:43 Last Admin: 09/09/17 20:12 Dose: 50 mg Naloxone HCl (Narcan) 0.4 mg IVPUSH ONETIME ONE Stop: 09/09/17 14:01 Last Admin: 09/09/17 14:07 Dose: 0.4 mg Potassium Chloride (Klor-Con M20) 40 meq PO ONETIME ONE Stop: 09/09/17 18:01 Last Admin: 09/09/17 18:21 Dose: 40 meq - Exam General: Reports: Alert, Oriented, Cooperative, No Acute Distress Lungs: Reports: Clear to Auscultation, Normal Respiratory Effort Cardiovascular: Reports: Regular Rate, Regular Rhythm, No Murmurs GI/Abdominal Exam: Soft, Non-Tender, No Organomegaly, No Distention *Q Meaningful Use (DIS) - VTE *Q VTE Mechanical Contraindications *Q: At Risk for Falls VTE Pharmacological Contraindications *Q: Tx/Proc Refused by Pt
== END 2017-09-10 12:50 | disposition home or self-care (01) ==
LOC: JP.ED 13:37 → JP.ICU 15:51
PROVIDERS: ADMIT Hospitalist; ATTEND Hospitalist
DX: R45.851 Suicidal ideations (principal); F10.129 Alcohol abuse with intoxication, unspecified; F90.9 Attention-deficit hyperactivity disorder, unspecified type; F41.9 Anxiety disorder, unspecified; F32.9 Major depressive disorder, single episode, unspecified; E11.9 Type 2 diabetes mellitus without complications; E53.8 Deficiency of other specified B group vitamins; K27.9 Peptic ulcer, site unspecified, unspecified as acute or chronic, without hemorrhage or perforation; M81.0 Age-related osteoporosis without current pathological fracture; Z79.899 Other long term (current) drug therapy; Z79.84 Long term (current) use of oral hypoglycemic drugs; Z88.5 Allergy status to narcotic agent; Z88.8 Allergy status to other drugs, medicaments and biological substances; Z87.891 Personal history of nicotine dependence
CPT/HCPCS: 36415; 80048; 80053; 80305; 81001; 85025; 96361; 96374; 99285; A9270; G0480; J2310; J2405; J7030; 99283

== ENCOUNTER 2017-12-09 21:10 | Observation (INO) | payer MEDICARE, MEDICAID ==
[2017-12-09] MEDS ORDERED: Lactated Ringers 1,000 ML IV ONE (21:44)
--- NOTE | 2017-12-09 21:52 | EDM.PDOCBH ---
ED HPI GENERAL MEDICAL PROBLEM - General Chief Complaint: Drug or Alcohol Abuse Stated Complaint: SUICIDAL Time Seen by Provider: 12/09/17 21:35 Source of Information: Reports: EMS, Old Records History Limitations: Reports: Other (patient not able to provider history) - History of Present Illness INITIAL COMMENTS - FREE TEXT/NARRATIVE: 32 yo female was found obtunded with empty pill bottles around her by her mother. The mother called 911 and EMS transported. Has a pHx of suicide attempts. Empty bottles included metformin, alprazolam and temazepam, and gabapentin. The gabapentin bottle was completely empty and just filled today( 300 mg x 360 tabs). Patient non-verbal en route via EMS. Also drank quite a bit of Listerine. When her mother showed up later in the ER she mentioned that there was Vodka and beer in the garbage can. 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[employer]IC: Reports: Other (see below) (none) denies Pain Score (Numeric/FACES): 0 - Related Data Allergies Allergy/AdvReac Type Severity Reaction Status Date / Time bupropion [From Wellbutrin] Allergy Seizure Verified 08/27/17 13:50 paroxetine [From Paxil] Allergy Confusion Verified 08/27/17 13:50 pramipexole [From Mirapex] Allergy Rash Verified 08/27/17 13:50 quetiapine [From Seroquel] Allergy Tachycardia Verified 08/27/17 13:50 tramadol Allergy Seizure Verified 08/27/17 13:50 venlafaxine [From Effexor] Allergy Cannot Verified 08/27/17 13:50 Remember Home Meds: Home Meds ClonazePAM [KlonoPIN] 1 mg PO QID PRN 01/08/17 [History] FLUoxetine HCl [Prozac] 40 mg PO BEDTIME 01/08/17 [History] Gabapentin [Neurontin] 300 mg PO BID 01/08/17 [History] Gabapentin [Neurontin] 600 mg PO BEDTIME 01/08/17 [History] Topiramate [Topamax] 50 mg PO BID 01/08/17 [History] lamoTRIgine [Lamictal] 200 mg PO BID 01/08/17 [History] metFORMIN [Glucophage] 1,000 mg PO BIDMEALS 01/08/17 [History] Temazepam 15 - 30 mg PO BEDTIME 07/22/17 [History] Acetaminophen [Tylenol] 650 mg PO Q6H cup 07/28/17 [Rx] Ondansetron [Zofran ODT] 4 mg PO Q4H PRN #30 tab.dis 07/28/17 [Rx] Past Medical History HEENT History: Reports: None Gastrointestinal History: Reports: Inflammatory Bowel Disease, PUD Other Gastrointestinal History: abdominal hernia [employer] History: Reports: Endometriosis, Polycystic Ovaries Musculoskeletal History: Reports: Fracture, Osteoporosis Neurological History: Reports: Head Trauma, Migraines, Seizure, Other (See Below ) Other Neuro History: epilepsy Psychiatric History: Reports: ADHD, Addiction, Anxiety, Depression Endocrine/Metabolic History: Reports: Diabetes, Type II Hematologic History: Reports: B12 Deficiency - Infectious Disease History Infectious Disease History: Reports: Chicken Pox - Past Surgical History HEENT Surgical History: Reports: None, Adenoidectomy, Myringotomy w Tube(s), Oral Surgery, Other (See Below) Other HEENT Surgeries/Procedures: rhinoplasty, jaw surgery. Cardiovascular Surgical History: Reports: None Respiratory Surgical History: Reports: None GI Surgical History: Reports: Bariatric Procedure, Cholecystectomy, Hernia Repair/Other, Other (See Below) Other GI Surgeries/Procedures: perforated bowel surgery from ulcers, panniculectomy with revision x 2. Musculoskeletal Surgical History: Reports: Other (See Below) Other Musculoskeletal Surgeries/Procedures:: "rods in Left leg", left hand surgery, 5 foot surgeries d/t flat feet. Social & Family History - Caffeine Use Caffeine Use: Reports: Soda ED ROS GENERAL - Review of Systems Review Of Systems: Unable To Obtain ED EXAM, BEHAVIORAL HEALTH - Physical Exam Exam: See Below Exam Limited By: No Limitations General Appearance: WD/WN, Obtunded, Mild Distress Eye Exam: Bilateral Eye: PERRL (pupils sluggish, slightly dilated) Ears: Normal External Exam, Normal Canal, Normal TMs Nose: Normal Inspection, Normal Mucosa, No Blood Throat/Mouth: Normal Inspection, Normal Lips, No Airway Compromise Head: Atraumatic, Normocephalic Neck: Normal Inspection Respiratory/Chest: No Respiratory Distress, Lungs Clear, Normal Breath Sounds, No Accessory Muscle Use Cardiovascular: Regular Rate, Rhythm, No Edema GI/Abdominal: Normal Bowel Sounds, Soft, Non-Tender, No Distention Extremities: Normal Inspection, Normal Range of Motion, Non-Tender, No Pedal Edema Neurological: Inattentive, Slow Response to Commands, Withdraws to Pain. No: No Response to Pain Psychiatric: Depressed Mood, Flat Affect, Poor Eye Contact, Withdrawn, Other ( somnolent). No: Alert, Normal Affect, Normal Cognition, Normal Mood Skin Exam: Warm, Dry, Intact, Normal color, No rash COURSE, BEHAVIORAL HEALTH COMP - Course Vital Signs: Last Vital Signs Temp 36.4 C 12/09/17 22:31 Pulse 71 12/09/17 23:15 Resp 22 H 12/09/17 23:15 BP 122/78 12/09/17 23:15 Pulse Ox 99 12/09/17 23:15 Orders, Labs, Meds: Active Orders 24 hr Category Date Time Status Cardiac Monitoring [RC] .As Directed Care 12/09/17 21:44 Active Goodrich Catheter Insertion [Insert Urinary Catheter] [OM. Care 12/09/17 21:45 Ordered PC] Q24H Urinary Catheter Assessment [RC] ASDIRECTED Care 12/09/17 21:44 Active Lactated Ringers [Ringers, Lactated] 1,000 ml Med 12/09/17 23:00 Active IV ASDIRECTED Potassium Chloride [KCL 20 MEQ in Water 100 ML] 20 meq Med 12/09/17 22:17 Active Premix Bag 1 bag IV ONETIME Medication Orders Potassium Chloride 20 meq/ (Premix) 100 mls @ 50 mls/hr IV ONETIME ONE Stop: 12/10/17 00:16 Last Admin: 12/09/17 22:34 Dose: 50 mls/hr Lactated Ringer's (Ringers, Lactated) 1,000 mls @ 500 mls/hr IV ASDIRECTED [facility] Last Admin: 12/09/17 22:54 Dose: 500 mls/hr Laboratory Tests 12/09/17 12/09/17 12/09/17 Range/Units 21:45 21:45 21:45 WBC (4.5-11.0) K/uL RBC (3.30-5.50) M/uL Hgb (12.0-15.0) g/dL Hct (36.0-48.0) % MCV (80-98) fL MCH (27-31) pg MCHC (32-36) % Plt Count (150-400) K/uL Sodium (140-148) mmol/L Potassium (3.6-5.2) mmol/L Chloride (100-108) mmol/L Carbon Dioxide (21-32) mmol/L Anion Gap (5.0-14.0) mmol/L BUN (7-18) mg/dL Creatinine (0.6-1.0) mg/dL Est Cr Clr Drug Dosing mL/min Estimated GFR (MDRD) (>60) Glucose (74-106) mg/dL Calcium (8.5-10.1) mg/dL Magnesium (1.8-2.4) mg/dL Total Bilirubin (0.2-1.0) mg/dL AST (15-37) U/L ALT (12-78) U/L Alkaline Phosphatase (46-116) U/L Total Protein (6.4-8.2) g/dL Albumin (3.4-5.0) g/dL Globulin (2.3-3.5) g/dL Albumin/Globulin Ratio (1.2-2.2) Urine Color Yellow Urine Appearance Clear Urine pH 6.0 (4.5-8.0) Ur Specific Cope 1.010 (1.008-1.030) Urine Protein Negative (NEGATIVE) mg/dL Urine Glucose (UA) Normal (NEGATIVE) mg/dL Urine Ketones 15 H (NEGATIVE) mg/dL Urine Occult Blood Negative (NEGATIVE) Urine Nitrite Negative (NEGATIVE) Urine Bilirubin Negative (NEGATIVE) Urine Urobilinogen 1 (NORMAL) mg/dL Ur Leukocyte Esterase Negative (NEGATIVE) Urine RBC 0-5 (0-5) Urine WBC 0-5 (0-5) Ur Epithelial Cells Rare Amorphous Sediment Rare Urine Bacteria Rare Urine Mucus Rare Urine HCG, Qual Negative Salicylates (2.0-20.0) mg/dL Urine Opiates Screen Negative (NEGATIVE) Ur Oxycodone Screen Negative (NEGATIVE) Urine Methadone Screen Negative (NEGATIVE) Ur Propoxyphene Screen Negative (NEGATIVE) Acetaminophen (10.0-30.0) ug/mL Ur Barbiturates Screen Negative (NEGATIVE) Ur Tricyclics Screen Negative (NEGATIVE) Ur Phencyclidine Scrn Negative (NEGATIVE) Ur Amphetamine Screen Negative (NEGATIVE) U Methamphetamines Scrn Negative (NEGATIVE) Urine MDMA Screen Negative (NEGATIVE) U Benzodiazepines Scrn Positive H (NEGATIVE) U Cocaine Metab Screen Negative (NEGATIVE) U Marijuana (THC) Screen Negative (NEGATIVE) Ethyl Alcohol mg/dL 12/09/17 12/09/17 12/09/17 Range/Units 21:50 21:50 21:50 WBC 10.7 (4.5-11.0) K/uL RBC 4.58 (3.30-5.50) M/uL Hgb 13.5 (12.0-15.0) g/dL Hct 39.4 (36.0-48.0) % MCV 86 (80-98) fL MCH 30 (27-31) pg MCHC 34 (32-36) % Plt Count 268 (150-400) K/uL Sodium 140 (140-148) mmol/L Potassium 3.2 L (3.6-5.2) mmol/L Chloride 100 (100-108) mmol/L Carbon Dioxide 24 (21-32) mmol/L Anion Gap 19.2 H (5.0-14.0) mmol/L BUN 8 (7-18) mg/dL Creatinine 0.6 (0.6-1.0) mg/dL Est Cr Clr Drug Dosing 129.69 mL/min Estimated GFR (MDRD) > 60 (>60) Glucose 101 (74-106) mg/dL Calcium 8.8 (8.5-10.1) mg/dL Magnesium (1.8-2.4) mg/dL Total Bilirubin 0.4 (0.2-1.0) mg/dL AST 45 H (15-37) U/L ALT 25 (12-78) U/L Alkaline Phosphatase 80 (46-116) U/L Total Protein 6.8 (6.4-8.2) g/dL Albumin 3.3 L (3.4-5.0) g/dL Globulin 3.5 (2.3-3.5) g/dL Albumin/Globulin Ratio 0.9 L (1.2-2.2) Urine Color Urine Appearance Urine pH (4.5-8.0) Ur Specific Cope (1.008-1.030) Urine Protein (NEGATIVE) mg/dL Urine Glucose (UA) (NEGATIVE) mg/dL Urine Ketones (NEGATIVE) mg/dL Urine Occult Blood (NEGATIVE) Urine Nitrite (NEGATIVE) Urine Bilirubin (NEGATIVE) Urine Urobilinogen (NORMAL) mg/dL Ur Leukocyte Esterase (NEGATIVE) Urine RBC (0-5) Urine WBC (0-5) Ur Epithelial Cells Amorphous Sediment Urine Bacteria Urine Mucus Urine HCG, Qual Salicylates (2.0-20.0) mg/dL Urine Opiates Screen (NEGATIVE) Ur Oxycodone Screen (NEGATIVE) Urine Methadone Screen (NEGATIVE) Ur Propoxyphene Screen (NEGATIVE) Acetaminophen (10.0-30.0) ug/mL Ur Barbiturates Screen (NEGATIVE) Ur Tricyclics Screen (NEGATIVE) Ur Phencyclidine Scrn (NEGATIVE) Ur Amphetamine Screen (NEGATIVE) U Methamphetamines Scrn (NEGATIVE) Urine MDMA Screen (NEGATIVE) U Benzodiazepines Scrn (NEGATIVE) U Cocaine Metab Screen (NEGATIVE) U Marijuana (THC) Screen (NEGATIVE) Ethyl Alcohol 461 mg/dL 12/09/17 12/09/17 12/09/17 Range/Units 22:19 22:19 22:20 WBC (4.5-11.0) K/uL RBC (3.30-5.50) M/uL Hgb (12.0-15.0) g/dL Hct (36.0-48.0) % MCV (80-98) fL MCH (27-31) pg MCHC (32-36) % Plt Count (150-400) K/uL Sodium (140-148) mmol/L Potassium (3.6-5.2) mmol/L Chloride (100-108) mmol/L Carbon Dioxide (21-32) mmol/L Anion Gap (5.0-14.0) mmol/L BUN (7-18) mg/dL Creatinine (0.6-1.0) mg/dL Est Cr Clr Drug Dosing mL/min Estimated GFR (MDRD) (>60) Glucose (74-106) mg/dL Calcium (8.5-10.1) mg/dL Magnesium 1.9 (1.8-2.4) mg/dL Total Bilirubin (0.2-1.0) mg/dL AST (15-37) U/L ALT (12-78) U/L Alkaline Phosphatase (46-116) U/L Total Protein (6.4-8.2) g/dL Albumin (3.4-5.0) g/dL Globulin (2.3-3.5) g/dL Albumin/Globulin Ratio (1.2-2.2) Urine Color Urine Appearance Urine pH (4.5-8.0) Ur Specific Cope (1.008-1.030) Urine Protein (NEGATIVE) mg/dL Urine Glucose (UA) (NEGATIVE) mg/dL Urine Ketones (NEGATIVE) mg/dL Urine Occult Blood (NEGATIVE) Urine Nitrite (NEGATIVE) Urine Bilirubin (NEGATIVE) Urine Urobilinogen (NORMAL) mg/dL Ur Leukocyte Esterase (NEGATIVE) Urine RBC (0-5) Urine WBC (0-5) Ur Epithelial Cells Amorphous Sediment Urine Bacteria Urine Mucus Urine HCG, Qual Salicylates 6.1 (2.0-20.0) mg/dL Urine Opiates Screen (NEGATIVE) Ur Oxycodone Screen (NEGATIVE) Urine Methadone Screen (NEGATIVE) Ur Propoxyphene Screen (NEGATIVE) Acetaminophen < 2.0 L (10.0-30.0) ug/mL Ur Barbiturates Screen (NEGATIVE) Ur Tricyclics Screen (NEGATIVE) Ur Phencyclidine Scrn (NEGATIVE) Ur Amphetamine Screen (NEGATIVE) U Methamphetamines Scrn (NEGATIVE) Urine MDMA Screen (NEGATIVE) U Benzodiazepines Scrn (NEGATIVE) U Cocaine Metab Screen (NEGATIVE) U Marijuana (THC) Screen (NEGATIVE) Ethyl Alcohol mg/dL Medications Generic Name Dose Route Start Last Admin Trade Name Freq PRN Reason Stop Dose Admin Potassium Chloride 20 meq/ 100 mls @ 50 mls/hr 12/09/17 22:17 12/09/17 22:34 Premix IV 12/10/17 00:16 50 mls/hr ONETIME ONE Administration Lactated Ringer's 1,000 mls @ 500 mls/hr 12/09/17 23:00 12/09/17 22:54 Ringers, Lactated IV 500 mls/hr ASDIRECTED CORIEN Administration Discontinued Medications Generic Name Dose Route Start Last Admin Trade Name Freq PRN Reason Stop Dose Admin Lactated Ringer's 1,000 mls @ 1,000 mls/hr 12/09/17 21:44 12/09/17 21:57 Ringers, Lactated IV 12/09/17 22:43 1,000 mls/hr BOLUS ONE Administration Re-Assessment/Re-Exam Time: 22:54 Departure - Departure Time of Disposition: 23:05 Disposition: Refer to Observation Condition: Fair Clinical Impression: Hypokalemia Alcohol intoxication Qualifiers: Complication of substance-induced condition: with unspecified complication Qualified Code(s): F10.929 - Alcohol use, unspecified with intoxication, unspecified - Discharge Information Referrals: PCP,None [Primary Care Provider] - Forms: ED Department Discharge - My Orders Last 24 Hours: My Active Orders 12/09/17 21:44 Cardiac Monitoring [RC] .As Directed Urinary Catheter Assessment [RC] ASDIRECTED 12/09/17 21:45 Goodrich Catheter Insertion [Insert Urinary Catheter] [OM.PC] Q24H 12/09/17 22:17 Potassium Chloride [KCL 20 MEQ in Water 100 ML] 20 meq Premix Bag 1 bag IV ONETIME 12/09/17 23:00 Lactated Ringers [Ringers, Lactated] 1,000 ml IV ASDIRECTED - Assessment/Plan Last 24 Hours: My Active Orders 12/09/17 21:44 Cardiac Monitoring [RC] .As Directed Urinary Catheter Assessment [RC] ASDIRECTED 12/09/17 21:45 Goodrich Catheter Insertion [Insert Urinary Catheter] [OM.PC] Q24H 12/09/17 22:17 Potassium Chloride [KCL 20 MEQ in Water 100 ML] 20 meq Premix Bag 1 bag IV ONETIME 12/09/17 23:00 Lactated Ringers [Ringers, Lactated] 1,000 ml IV ASDIRECTED
[2017-12-09] MEDS ORDERED: Potassium Chloride 20 MEQ in Premix Bag 1 BAG IV ONE (22:17)
[2017-12-09] MEDS ORDERED: Lactated Ringers 1,000 ML IV SCH (23:00)
--- NOTE | 2017-12-09 23:42 | PCM.HP ---
H&P History of Present Illness - General Date of Service: 12/09/17 Admit Problem/Dx: Admission Diagnosis/Problem Admission Diagnosis/Problem Alcohol intoxication Source of Information: Patient, Family, Provider History Limitations: Reports: Altered Mental Status (drunk) - History of Present Illness Initial Comments - Free Text/Narative: Kenny presented to the ED by ambulance after calling her mother and reporting suicidal ideations. The patient is very intoxicated and history is somewhat difficult to gather. Her mother does add some history. The patient is able to tell me that her boyfriend broke up with her about a week ago when she's been drinking heavily since that time. Tonight she was feeling down and depressed more so than usual and was having thoughts of harming herself. She reported feeling hopeless and helpless. She called her mother who was very concerned and thought she was intoxicated based on her speech and called an ambulance. It was reported that there were empty pill bottles around the patient arrived but it's not clear which bottles were empty. The patient reports that she did not take any extra medications tonight. She reports that she just was drinking heavily. Physically she reports feeling very intoxicated but does not report headache, blurry vision, chest pain, abdominal pain or nausea. She's not aware of any recent fevers. She does have history of major depression and previous suicide attempts. Her most recent severe episode of depression and heavy alcohol use that landed her in the intensive care unit was about 3 months ago. She does have a psychiatrist as well as a therapist that she works with for her mental health. Her main source of support is her mother. She does does have 1 close friend who she talks too as well. In the emergency room she was noted to be quite intoxicated with a alcohol level of 461. Potassium was mildly decreased. She was initially obtunded but has calmed somewhat more awake over the past couple of hours. She will be admitted to the intensive care unit for the chance to sober up and get additional information in the morning. I think given repeated taps, severe depression and heavy alcohol use to cope with her depression that she may benefit from inpatient admission. Her mom believes this is a good idea based on the severity of recent symptoms. denies Pain Score (Numeric/FACES): 0 - Related Data Allergies/Adverse Reactions: Allergies Allergy/AdvReac Type Severity Reaction Status Date / Time bupropion [From Wellbutrin] Allergy Seizure Verified 08/27/17 13:50 paroxetine [From Paxil] Allergy Confusion Verified 08/27/17 13:50 pramipexole [From Mirapex] Allergy Rash Verified 08/27/17 13:50 quetiapine [From Seroquel] Allergy Tachycardia Verified 08/27/17 13:50 tramadol Allergy Seizure Verified 08/27/17 13:50 venlafaxine [From Effexor] Allergy Cannot Verified 08/27/17 13:50 Remember Home Medications: Home Meds ClonazePAM [KlonoPIN] 1 mg PO QID PRN 01/08/17 [History] FLUoxetine HCl [Prozac] 40 mg PO BEDTIME 01/08/17 [History] Gabapentin [Neurontin] 300 mg PO BID 01/08/17 [History] Gabapentin [Neurontin] 600 mg PO BEDTIME 01/08/17 [History] Topiramate [Topamax] 50 mg PO BID 01/08/17 [History] lamoTRIgine [Lamictal] 200 mg PO BID 01/08/17 [History] metFORMIN [Glucophage] 1,000 mg PO BIDMEALS 01/08/17 [History] Temazepam 15 - 30 mg PO BEDTIME 07/22/17 [History] Acetaminophen [Tylenol] 650 mg PO Q6H cup 07/28/17 [Rx] Ondansetron [Zofran ODT] 4 mg PO Q4H PRN #30 tab.dis 07/28/17 [Rx] Past Medical History HEENT History: Reports: None Gastrointestinal History: Reports: Inflammatory Bowel Disease, PUD Other Gastrointestinal History: abdominal hernia [employer] HEAD History: Reports: Endometriosis, Polycystic Ovaries Musculoskeletal History: Reports: Fracture, Osteoporosis Neurological History: Reports: Head Trauma, Migraines, Seizure, Other (See Below ) Other Neuro History: epilepsy Psychiatric History: Reports: ADHD, Addiction, Anxiety, Depression Endocrine/Metabolic History: Reports: Diabetes, Type II Hematologic History: Reports: B12 Deficiency - Infectious Disease History Infectious Disease History: Reports: Chicken Pox - Past Surgical History HEENT Surgical History: Reports: None, Adenoidectomy, Myringotomy w Tube(s), Oral Surgery, Other (See Below) Other HEENT Surgeries/Procedures: rhinoplasty, jaw surgery. Cardiovascular Surgical History: Reports: None Respiratory Surgical History: Reports: None GI Surgical History: Reports: Bariatric Procedure, Cholecystectomy, Hernia Repair/Other, Other (See Below) Other GI Surgeries/Procedures: perforated bowel surgery from ulcers, panniculectomy with revision x 2. Musculoskeletal Surgical History: Reports: Other (See Below) Other Musculoskeletal Surgeries/Procedures:: "rods in Left leg", left hand surgery, 5 foot surgeries d/t flat feet. Social & Family History - Family History Cardiac: Denies: CAD - Tobacco Use Smoking Status *Q: Current Every Day Smoker Years of Tobacco use: 12 Packs/Tins Daily: 0.5 Used Tobacco, but Quit: No - Caffeine Use Caffeine Use: Reports: Soda - Alcohol Use Days Per Week of Alcohol Use: 0 - Recreational Drug Use Recreational Drug Use: No H&P Review of Systems - Review of Systems: Review Of Systems: See Below Free Text/Narrative: A complete 12 point review of systems was obtained. Pertinent positives and negatives are noted in the history of present illness. All other systems were reviewed and were negative except as noted. Exam - Exam Exam: See Below - Vital Signs Vital Signs: Last Vital Signs Temp 36.4 C 12/09/17 22:31 Pulse 81 12/09/17 23:30 Resp 12 12/09/17 23:30 BP 125/85 12/09/17 23:30 Pulse Ox 99 12/09/17 23:30 Weight: 68.039 kg - Exam Quality Assessment: No: Supplemental Oxygen General: Alert, Oriented, Cooperative, Lethargic. No: Mild Distress HEENT: Conjunctiva Clear, Pupils Equal. No: Mucosa Moist & [place] (dry), Scleral Icterus Neck: Supple, Trachea Midline. No: Lymphadenopathy, Thyromegaly Lungs: Clear to Auscultation, Normal Respiratory Effort Cardiovascular: Regular Rate, Regular Rhythm. No: Systolic Murmur GI/Abdominal Exam: Normal Bowel Sounds, Soft, Non-Tender, No Distention Extremities: No Pedal Edema. No: Increased Warmth Peripheral Pulses: 2+: Dorsalis Pedis (L), Dorsalis Pedis (R) Skin: Warm, Dry Neuro Extensive - Mental Status: Alert, Slow Response to Commands. No: Normal Mood/Affect (lethargic) Neuro Extensive - Motor, Sensory, Reflexes: Dysarthria (intoxicated). No: Abnormal Motor, Tremor Psychiatric: Alert. No: Anxious, Withdrawal Symptoms - Patient Data Lab Results Last 24 hrs: Laboratory Results - last 24 hr 12/09/17 12/09/17 12/09/17 Range/Units 21:45 21:45 21:45 WBC (4.5-11.0) K/uL RBC (3.30-5.50) M/uL Hgb (12.0-15.0) g/dL Hct (36.0-48.0) % MCV (80-98) fL MCH (27-31) pg MCHC (32-36) % Plt Count (150-400) K/uL Sodium (140-148) mmol/L Potassium (3.6-5.2) mmol/L Chloride (100-108) mmol/L Carbon Dioxide (21-32) mmol/L Anion Gap (5.0-14.0) mmol/L BUN (7-18) mg/dL Creatinine (0.6-1.0) mg/dL Est Cr Clr Drug Dosing mL/min Estimated GFR (MDRD) (>60) Glucose (74-106) mg/dL Calcium (8.5-10.1) mg/dL Magnesium (1.8-2.4) mg/dL Total Bilirubin (0.2-1.0) mg/dL AST (15-37) U/L ALT (12-78) U/L Alkaline Phosphatase (46-116) U/L Total Protein (6.4-8.2) g/dL Albumin (3.4-5.0) g/dL Globulin (2.3-3.5) g/dL Albumin/Globulin Ratio (1.2-2.2) Urine Color Yellow Urine Appearance Clear Urine pH 6.0 (4.5-8.0) Ur Specific [place] 1.010 (1.008-1.030) Urine Protein Negative (NEGATIVE) mg/dL Urine Glucose (UA) Normal (NEGATIVE) mg/dL Urine Ketones 15 H (NEGATIVE) mg/dL Urine Occult Blood Negative (NEGATIVE) Urine Nitrite Negative (NEGATIVE) Urine Bilirubin Negative (NEGATIVE) Urine Urobilinogen 1 (NORMAL) mg/dL Ur Leukocyte Esterase Negative (NEGATIVE) Urine RBC 0-5 (0-5) Urine WBC 0-5 (0-5) Ur Epithelial Cells Rare Amorphous Sediment Rare Urine Bacteria Rare Urine Mucus Rare Urine HCG, Qual Negative Salicylates (2.0-20.0) mg/dL Urine Opiates Screen Negative (NEGATIVE) Ur Oxycodone Screen Negative (NEGATIVE) Urine Methadone Screen Negative (NEGATIVE) Ur Propoxyphene Screen Negative (NEGATIVE) Acetaminophen (10.0-30.0) ug/mL Ur Barbiturates Screen Negative (NEGATIVE) Ur Tricyclics Screen Negative (NEGATIVE) Ur Phencyclidine Scrn Negative (NEGATIVE) Ur Amphetamine Screen Negative (NEGATIVE) U Methamphetamines Scrn Negative (NEGATIVE) Urine MDMA Screen Negative (NEGATIVE) U Benzodiazepines Scrn Positive H (NEGATIVE) U Cocaine Metab Screen Negative (NEGATIVE) U Marijuana (THC) Screen Negative (NEGATIVE) Ethyl Alcohol mg/dL 12/09/17 12/09/17 12/09/17 Range/Units 21:50 21:50 21:50 WBC 10.7 (4.5-11.0) K/uL RBC 4.58 (3.30-5.50) M/uL Hgb 13.5 (12.0-15.0) g/dL Hct 39.4 (36.0-48.0) % MCV 86 (80-98) fL MCH 30 (27-31) pg MCHC 34 (32-36) % Plt Count 268 (150-400) K/uL Sodium 140 (140-148) mmol/L Potassium 3.2 L (3.6-5.2) mmol/L Chloride 100 (100-108) mmol/L Carbon Dioxide 24 (21-32) mmol/L Anion Gap 19.2 H (5.0-14.0) mmol/L BUN 8 (7-18) mg/dL Creatinine 0.6 (0.6-1.0) mg/dL Est Cr Clr Drug Dosing 129.69 mL/min Estimated GFR (MDRD) > 60 (>60) Glucose 101 (74-106) mg/dL Calcium 8.8 (8.5-10.1) mg/dL Magnesium (1.8-2.4) mg/dL Total Bilirubin 0.4 (0.2-1.0) mg/dL AST 45 H (15-37) U/L ALT 25 (12-78) U/L Alkaline Phosphatase 80 (46-116) U/L Total Protein 6.8 (6.4-8.2) g/dL Albumin 3.3 L (3.4-5.0) g/dL Globulin 3.5 (2.3-3.5) g/dL Albumin/Globulin Ratio 0.9 L (1.2-2.2) Urine Color Urine Appearance Urine pH (4.5-8.0) Ur Specific [place] (1.008-1.030) Urine Protein (NEGATIVE) mg/dL Urine Glucose (UA) (NEGATIVE) mg/dL Urine Ketones (NEGATIVE) mg/dL Urine Occult Blood (NEGATIVE) Urine Nitrite (NEGATIVE) Urine Bilirubin (NEGATIVE) Urine Urobilinogen (NORMAL) mg/dL Ur Leukocyte Esterase (NEGATIVE) Urine RBC (0-5) Urine WBC (0-5) Ur Epithelial Cells Amorphous Sediment Urine Bacteria Urine Mucus Urine HCG, Qual Salicylates (2.0-20.0) mg/dL Urine Opiates Screen (NEGATIVE) Ur Oxycodone Screen (NEGATIVE) Urine Methadone Screen (NEGATIVE) Ur Propoxyphene Screen (NEGATIVE) Acetaminophen (10.0-30.0) ug/mL Ur Barbiturates Screen (NEGATIVE) Ur Tricyclics Screen (NEGATIVE) Ur Phencyclidine Scrn (NEGATIVE) Ur Amphetamine Screen (NEGATIVE) U Methamphetamines Scrn (NEGATIVE) Urine MDMA Screen (NEGATIVE) U Benzodiazepines Scrn (NEGATIVE) U Cocaine Metab Screen (NEGATIVE) U Marijuana (THC) Screen (NEGATIVE) Ethyl Alcohol 461 mg/dL 12/09/17 12/09/17 12/09/17 Range/Units 22:19 22:19 22:20 WBC (4.5-11.0) K/uL RBC (3.30-5.50) M/uL Hgb (12.0-15.0) g/dL Hct (36.0-48.0) % MCV (80-98) fL MCH (27-31) pg MCHC (32-36) % Plt Count (150-400) K/uL Sodium (140-148) mmol/L Potassium (3.6-5.2) mmol/L Chloride (100-108) mmol/L Carbon Dioxide (21-32) mmol/L Anion Gap (5.0-14.0) mmol/L BUN (7-18) mg/dL Creatinine (0.6-1.0) mg/dL Est Cr Clr Drug Dosing mL/min Estimated GFR (MDRD) (>60) Glucose (74-106) mg/dL Calcium (8.5-10.1) mg/dL Magnesium 1.9 (1.8-2.4) mg/dL Total Bilirubin (0.2-1.0) mg/dL AST (15-37) U/L ALT (12-78) U/L Alkaline Phosphatase (46-116) U/L Total Protein (6.4-8.2) g/dL Albumin (3.4-5.0) g/dL Globulin (2.3-3.5) g/dL Albumin/Globulin Ratio (1.2-2.2) Urine Color Urine Appearance Urine pH (4.5-8.0) Ur Specific [place] (1.008-1.030) Urine Protein (NEGATIVE) mg/dL Urine Glucose (UA) (NEGATIVE) mg/dL Urine Ketones (NEGATIVE) mg/dL Urine Occult Blood (NEGATIVE) Urine Nitrite (NEGATIVE) Urine Bilirubin (NEGATIVE) Urine Urobilinogen (NORMAL) mg/dL Ur Leukocyte Esterase (NEGATIVE) Urine RBC (0-5) Urine WBC (0-5) Ur Epithelial Cells Amorphous Sediment Urine Bacteria Urine Mucus Urine HCG, Qual Salicylates 6.1 (2.0-20.0) mg/dL Urine Opiates Screen (NEGATIVE) Ur Oxycodone Screen (NEGATIVE) Urine Methadone Screen (NEGATIVE) Ur Propoxyphene Screen (NEGATIVE) Acetaminophen < 2.0 L (10.0-30.0) ug/mL Ur Barbiturates Screen (NEGATIVE) Ur Tricyclics Screen (NEGATIVE) Ur Phencyclidine Scrn (NEGATIVE) Ur Amphetamine Screen (NEGATIVE) U Methamphetamines Scrn (NEGATIVE) Urine MDMA Screen (NEGATIVE) U Benzodiazepines Scrn (NEGATIVE) U Cocaine Metab Screen (NEGATIVE) U Marijuana (THC) Screen (NEGATIVE) Ethyl Alcohol mg/dL Result Diagrams: 12/09/17 21:50 12/09/17 21:50 *Q Meaningful Use (ADM) - VTE Risk Assess *Q Each Risk Factor Represents 1 Point: None Total Score 1 Point Risk Factors: 0 Each Risk Factor Represents 2 Points: None Total Score 2 Point Risk Factors: 0 Each Risk Factor Represents 3 Points: None Total Score 3 Point Risk Factors: 0 Each Risk Factor Represents 5 Points: None Total Score 5 Point Risk Factors: 0 Venous Thromboembolism Risk Factor Score *Q: 0 - Problem List (1) Suicidal ideation SNOMED Code(s): 3402654 ICD Code: R45.851 - SUICIDAL IDEATIONS Status: Acute Current Visit: No (2) Acute alcohol intoxication SNOMED Code(s): 84601066 ICD Code: F10.929 - ALCOHOL USE, UNSPECIFIED WITH INTOXICATION, UNSPECIFIED Status: Acute Current Visit: No Qualifiers: Complication of substance-induced condition: uncomplicated Qualified Code(s ): F10.929 - Alcohol use, unspecified with intoxication, unspecified (3) Hypokalemia SNOMED Code(s): 52822403 ICD Code: E87.6 - HYPOKALEMIA Status: Acute Current Visit: Yes (4) History of depression SNOMED Code(s): 892706895 ICD Code: Z86.59 - PERSONAL HISTORY OF OTHER MENTAL AND BEHAVIORAL DISORDERS Status: Chronic Current Visit: No Problem List Initiated/Reviewed/Updated: Yes Orders Last 24hrs: Active Orders 24 hr Category Date Time Status Patient Status Manage Transfer [TRANSFER] Routine ADT 12/09/17 23:34 Ordered Cardiac Monitoring [RC] .As Directed Care 12/09/17 21:44 Active Goodrich Catheter Insertion [Insert Urinary Catheter] [OM. Care 12/09/17 21:45 Ordered PC] Q24H Urinary Catheter Assessment [RC] ASDIRECTED Care 12/09/17 21:44 Active Lactated Ringers [Ringers, Lactated] 1,000 ml Med 12/09/17 23:00 Active IV ASDIRECTED Potassium Chloride [KCL 20 MEQ in Water 100 ML] 20 meq Med 12/09/17 22:17 Active Premix Bag 1 bag IV ONETIME Suicide Precautions [OM.PC] Routine Oth 12/09/17 21:15 Ordered Resuscitation Status Routine Resus Stat 12/09/17 23:35 Ordered Medication Orders Potassium Chloride 20 meq/ (Premix) 100 mls @ 50 mls/hr IV ONETIME ONE Stop: 12/10/17 00:16 Last Admin: 12/09/17 22:34 Dose: 50 mls/hr Lactated Ringer's (Ringers, Lactated) 1,000 mls @ 500 mls/hr IV ASDIRECTED CORINE Last Admin: 12/09/17 22:54 Dose: 500 mls/hr Assessment/Plan Comment:: ASSESSMENT AND PLAN - Acute alcohol intoxication - patient is very intoxicated at this time and history is somewhat difficult to gather. She reported suicidal ideations to her mother but did not report them to me. She denies taking extra pills. She denies that she was trying to harm herself, she reports that she was simply trying to drink away the pain. She does have a history of alcohol withdrawal but I think it's unlikely with her short duration of binging. -IV fluids overnight -Monitor for signs of alcohol withdrawal Suicidal ideation - reported to her mother but not endorsed at the time of my evaluation. She's very intoxicated at this point. I think it would be best to reassess tomorrow morning when she is sober. I think that given her history of depression and suicide attempts that a crisis team evaluation would be beneficial. Her mom is very concerned about her mental health and thinks that the best route would be inpatient psychiatric care and possibly dual diagnosis psychiatric care. -ICU admission -Pulse oximetry -Crisis team evaluation in the morning Hypokalemia - mild and she has received some replacement in the emergency room. -Additional 20 mEq of potassium -Recheck in the morning Maintenance issues - - DVT prophylaxis - mechanical - GI prophylaxis - not indicated - Nutrition - nothing by mouth until she sd up - Goodrich catheter - placed in the emergency room because of obtundation CODE STATUS - full code Admission justification - patient will be referred observation status for IV fluids and a chance to sober up so we can reassess her mental health Disposition - I would anticipate discharge either to a psychiatric facility tomorrow or possibly to home Primary care physician - Bebe Jett M.D.
[2017-12-10] MEDS ORDERED: Acetaminophen 325 MG Tab PO PRN (00:19)
[2017-12-10] MEDS ORDERED: Ondansetron 4 MG Tab.DIS PO PRN (00:19)
[2017-12-10] MEDS ORDERED: LORazepam 2 MG/ML SDV IV PRN (00:19)
[2017-12-10] MEDS ORDERED: Lactated Ringers 1,000 ML IV SCH (00:19)
[2017-12-10] MEDS ORDERED: Ondansetron 4 MG/2 ML SDV IV PRN (00:19)
--- NOTE | 2017-12-10 09:07 | PCM.PN ---
- General Info Date of Service: 12/10/17 Functional Status: Reports: Pain Controlled - Review of Systems General: Reports: Weakness. Denies: Fever Systems Review Comment:: There were no acute events since the time of admission. The patient's vital signs have been stable. Further discussion this morning now that she is sober reveals she has been drinking heavily for 1 week. She does not endorse taking any extra medications last night. She was not trying to hurt herself. She simply was trying to drink her pain away. She does endorse feeling down and depressed but does not have any suicidal thoughts at this time. We are waiting for the crisis team evaluation. - Patient Data Vitals - Most Recent: Last Vital Signs Temp 35.7 C 12/10/17 07:00 Pulse 103 H 12/10/17 07:00 Resp 12 12/10/17 07:00 BP 121/77 12/10/17 07:00 Pulse Ox 98 12/10/17 07:00 Weight - Most Recent: 74.4 kg I&O - Last 24 Hours: Intake & Output 12/09/17 12/10/17 12/10/17 22:59 06:59 14:59 Intake Total 570 Output Total 950 Balance -380 Lab Results Last 24 Hours: Laboratory Results - last 24 hr 12/09/17 12/09/17 12/09/17 Range/Units 21:45 21:45 21:45 WBC (4.5-11.0) K/uL RBC (3.30-5.50) M/uL Hgb (12.0-15.0) g/dL Hct (36.0-48.0) % MCV (80-98) fL MCH (27-31) pg MCHC (32-36) % Plt Count (150-400) K/uL Sodium (140-148) mmol/L Potassium (3.6-5.2) mmol/L Chloride (100-108) mmol/L Carbon Dioxide (21-32) mmol/L Anion Gap (5.0-14.0) mmol/L BUN (7-18) mg/dL Creatinine (0.6-1.0) mg/dL Est Cr Clr Drug Dosing mL/min Estimated GFR (MDRD) (>60) Glucose (74-106) mg/dL Calcium (8.5-10.1) mg/dL Magnesium (1.8-2.4) mg/dL Total Bilirubin (0.2-1.0) mg/dL AST (15-37) U/L ALT (12-78) U/L Alkaline Phosphatase (46-116) U/L Total Protein (6.4-8.2) g/dL Albumin (3.4-5.0) g/dL Globulin (2.3-3.5) g/dL Albumin/Globulin Ratio (1.2-2.2) Urine Color Yellow Urine Appearance Clear Urine pH 6.0 (4.5-8.0) Ur Specific [place] 1.010 (1.008-1.030) Urine Protein Negative (NEGATIVE) mg/dL Urine Glucose (UA) Normal (NEGATIVE) mg/dL Urine Ketones 15 H (NEGATIVE) mg/dL Urine Occult Blood Negative (NEGATIVE) Urine Nitrite Negative (NEGATIVE) Urine Bilirubin Negative (NEGATIVE) Urine Urobilinogen 1 (NORMAL) mg/dL Ur Leukocyte Esterase Negative (NEGATIVE) Urine RBC 0-5 (0-5) Urine WBC 0-5 (0-5) Ur Epithelial Cells Rare Amorphous Sediment Rare Urine Bacteria Rare Urine Mucus Rare Urine HCG, Qual Negative Salicylates (2.0-20.0) mg/dL Urine Opiates Screen Negative (NEGATIVE) Ur Oxycodone Screen Negative (NEGATIVE) Urine Methadone Screen Negative (NEGATIVE) Ur Propoxyphene Screen Negative (NEGATIVE) Acetaminophen (10.0-30.0) ug/mL Ur Barbiturates Screen Negative (NEGATIVE) Ur Tricyclics Screen Negative (NEGATIVE) Ur Phencyclidine Scrn Negative (NEGATIVE) Ur Amphetamine Screen Negative (NEGATIVE) U Methamphetamines Scrn Negative (NEGATIVE) Urine MDMA Screen Negative (NEGATIVE) U Benzodiazepines Scrn Positive H (NEGATIVE) U Cocaine Metab Screen Negative (NEGATIVE) U Marijuana (THC) Screen Negative (NEGATIVE) Ethyl Alcohol mg/dL 12/09/17 12/09/17 12/09/17 Range/Units 21:50 21:50 21:50 WBC 10.7 (4.5-11.0) K/uL RBC 4.58 (3.30-5.50) M/uL Hgb 13.5 (12.0-15.0) g/dL Hct 39.4 (36.0-48.0) % MCV 86 (80-98) fL MCH 30 (27-31) pg MCHC 34 (32-36) % Plt Count 268 (150-400) K/uL Sodium 140 (140-148) mmol/L Potassium 3.2 L (3.6-5.2) mmol/L Chloride 100 (100-108) mmol/L Carbon Dioxide 24 (21-32) mmol/L Anion Gap 19.2 H (5.0-14.0) mmol/L BUN 8 (7-18) mg/dL Creatinine 0.6 (0.6-1.0) mg/dL Est Cr Clr Drug Dosing 129.69 mL/min Estimated GFR (MDRD) > 60 (>60) Glucose 101 (74-106) mg/dL Calcium 8.8 (8.5-10.1) mg/dL Magnesium (1.8-2.4) mg/dL Total Bilirubin 0.4 (0.2-1.0) mg/dL AST 45 H (15-37) U/L ALT 25 (12-78) U/L Alkaline Phosphatase 80 (46-116) U/L Total Protein 6.8 (6.4-8.2) g/dL Albumin 3.3 L (3.4-5.0) g/dL Globulin 3.5 (2.3-3.5) g/dL Albumin/Globulin Ratio 0.9 L (1.2-2.2) Urine Color Urine Appearance Urine pH (4.5-8.0) Ur Specific [place] (1.008-1.030) Urine Protein (NEGATIVE) mg/dL Urine Glucose (UA) (NEGATIVE) mg/dL Urine Ketones (NEGATIVE) mg/dL Urine Occult Blood (NEGATIVE) Urine Nitrite (NEGATIVE) Urine Bilirubin (NEGATIVE) Urine Urobilinogen (NORMAL) mg/dL Ur Leukocyte Esterase (NEGATIVE) Urine RBC (0-5) Urine WBC (0-5) Ur Epithelial Cells Amorphous Sediment Urine Bacteria Urine Mucus Urine HCG, Qual Salicylates (2.0-20.0) mg/dL Urine Opiates Screen (NEGATIVE) Ur Oxycodone Screen (NEGATIVE) Urine Methadone Screen (NEGATIVE) Ur Propoxyphene Screen (NEGATIVE) Acetaminophen (10.0-30.0) ug/mL Ur Barbiturates Screen (NEGATIVE) Ur Tricyclics Screen (NEGATIVE) Ur Phencyclidine Scrn (NEGATIVE) Ur Amphetamine Screen (NEGATIVE) U Methamphetamines Scrn (NEGATIVE) Urine MDMA Screen (NEGATIVE) U Benzodiazepines Scrn (NEGATIVE) U Cocaine Metab Screen (NEGATIVE) U Marijuana (THC) Screen (NEGATIVE) Ethyl Alcohol 461 mg/dL 12/09/17 12/09/17 12/09/17 Range/Units 22:19 22:19 22:20 WBC (4.5-11.0) K/uL RBC (3.30-5.50) M/uL Hgb (12.0-15.0) g/dL Hct (36.0-48.0) % MCV (80-98) fL MCH (27-31) pg MCHC (32-36) % Plt Count (150-400) K/uL Sodium (140-148) mmol/L Potassium (3.6-5.2) mmol/L Chloride (100-108) mmol/L Carbon Dioxide (21-32) mmol/L Anion Gap (5.0-14.0) mmol/L BUN (7-18) mg/dL Creatinine (0.6-1.0) mg/dL Est Cr Clr Drug Dosing mL/min Estimated GFR (MDRD) (>60) Glucose (74-106) mg/dL Calcium (8.5-10.1) mg/dL Magnesium 1.9 (1.8-2.4) mg/dL Total Bilirubin (0.2-1.0) mg/dL AST (15-37) U/L ALT (12-78) U/L Alkaline Phosphatase (46-116) U/L Total Protein (6.4-8.2) g/dL Albumin (3.4-5.0) g/dL Globulin (2.3-3.5) g/dL Albumin/Globulin Ratio (1.2-2.2) Urine Color Urine Appearance Urine pH (4.5-8.0) Ur Specific [place] (1.008-1.030) Urine Protein (NEGATIVE) mg/dL Urine Glucose (UA) (NEGATIVE) mg/dL Urine Ketones (NEGATIVE) mg/dL Urine Occult Blood (NEGATIVE) Urine Nitrite (NEGATIVE) Urine Bilirubin (NEGATIVE) Urine Urobilinogen (NORMAL) mg/dL Ur Leukocyte Esterase (NEGATIVE) Urine RBC (0-5) Urine WBC (0-5) Ur Epithelial Cells Amorphous Sediment Urine Bacteria Urine Mucus Urine HCG, Qual Salicylates 6.1 (2.0-20.0) mg/dL Urine Opiates Screen (NEGATIVE) Ur Oxycodone Screen (NEGATIVE) Urine Methadone Screen (NEGATIVE) Ur Propoxyphene Screen (NEGATIVE) Acetaminophen < 2.0 L (10.0-30.0) ug/mL Ur Barbiturates Screen (NEGATIVE) Ur Tricyclics Screen (NEGATIVE) Ur Phencyclidine Scrn (NEGATIVE) Ur Amphetamine Screen (NEGATIVE) U Methamphetamines Scrn (NEGATIVE) Urine MDMA Screen (NEGATIVE) U Benzodiazepines Scrn (NEGATIVE) U Cocaine Metab Screen (NEGATIVE) U Marijuana (THC) Screen (NEGATIVE) Ethyl Alcohol mg/dL 12/10/17 12/10/17 Range/Units 05:45 05:45 WBC 7.0 (4.5-11.0) K/uL RBC 3.73 (3.30-5.50) M/uL Hgb 11.2 L D (12.0-15.0) g/dL Hct 32.6 L (36.0-48.0) % MCV 87 (80-98) fL MCH 30 (27-31) pg MCHC 34 (32-36) % Plt Count 206 (150-400) K/uL Sodium 141 (140-148) mmol/L Potassium 3.7 (3.6-5.2) mmol/L Chloride 103 (100-108) mmol/L Carbon Dioxide 27 (21-32) mmol/L Anion Gap 11.0 (5.0-14.0) mmol/L BUN 6 L (7-18) mg/dL Creatinine 0.5 L (0.6-1.0) mg/dL Est Cr Clr Drug Dosing 155.21 mL/min Estimated GFR (MDRD) > 60 (>60) Glucose 80 (74-106) mg/dL Calcium 8.1 L (8.5-10.1) mg/dL Magnesium (1.8-2.4) mg/dL Total Bilirubin 0.4 (0.2-1.0) mg/dL AST 39 H (15-37) U/L ALT 22 (12-78) U/L Alkaline Phosphatase 64 (46-116) U/L Total Protein 5.2 L (6.4-8.2) g/dL Albumin 2.5 L (3.4-5.0) g/dL Globulin 2.7 (2.3-3.5) g/dL Albumin/Globulin Ratio 0.9 L (1.2-2.2) Urine Color Urine Appearance Urine pH (4.5-8.0) Ur Specific [place] (1.008-1.030) Urine Protein (NEGATIVE) mg/dL Urine Glucose (UA) (NEGATIVE) mg/dL Urine Ketones (NEGATIVE) mg/dL Urine Occult Blood (NEGATIVE) Urine Nitrite (NEGATIVE) Urine Bilirubin (NEGATIVE) Urine Urobilinogen (NORMAL) mg/dL Ur Leukocyte Esterase (NEGATIVE) Urine RBC (0-5) Urine WBC (0-5) Ur Epithelial Cells Amorphous Sediment Urine Bacteria Urine Mucus Urine HCG, Qual Salicylates (2.0-20.0) mg/dL Urine Opiates Screen (NEGATIVE) Ur Oxycodone Screen (NEGATIVE) Urine Methadone Screen (NEGATIVE) Ur Propoxyphene Screen (NEGATIVE) Acetaminophen (10.0-30.0) ug/mL Ur Barbiturates Screen (NEGATIVE) Ur Tricyclics Screen (NEGATIVE) Ur Phencyclidine Scrn (NEGATIVE) Ur Amphetamine Screen (NEGATIVE) U Methamphetamines Scrn (NEGATIVE) Urine MDMA Screen (NEGATIVE) U Benzodiazepines Scrn (NEGATIVE) U Cocaine Metab Screen (NEGATIVE) U Marijuana (THC) Screen (NEGATIVE) Ethyl Alcohol mg/dL Med Orders - Current: Current Medications Acetaminophen (Tylenol) 650 mg PO Q4H PRN PRN Reason: Pain (Mild 1-3)/fever Lactated Ringer's (Ringers, Lactated) 1,000 mls @ 125 mls/hr IV ASDIRECTED [facility] Last Admin: 12/10/17 01:05 Dose: 125 mls/hr Lorazepam (Ativan) 1 mg IV Q4H PRN PRN Reason: Anxiety Ondansetron HCl (Zofran Odt) 4 mg PO Q6H PRN PRN Reason: Nausea able to take PO Ondansetron HCl (Zofran) 4 mg IV Q6H PRN PRN Reason: Nausea/Vomiting Last Admin: 12/10/17 08:12 Dose: 4 mg Discontinued Medications Lactated Ringer's (Ringers, Lactated) 1,000 mls @ 1,000 mls/hr IV BOLUS ONE Stop: 12/09/17 22:43 Last Admin: 12/09/17 21:57 Dose: 1,000 mls/hr Potassium Chloride 20 meq/ (Premix) 100 mls @ 50 mls/hr IV ONETIME ONE Stop: 12/10/17 00:16 Last Admin: 12/09/17 22:34 Dose: 50 mls/hr Lactated Ringer's (Ringers, Lactated) 1,000 mls @ 500 mls/hr IV ASDIRECTED CORINE Stop: 12/10/17 00:19 Last Admin: 12/09/17 22:54 Dose: 500 mls/hr - Exam Quality Assessment: No: Supplemental Oxygen General: Alert, Oriented, Cooperative, No Acute Distress Lungs: Normal Respiratory Effort Cardiovascular: Regular Rate, Regular Rhythm GI/Abdominal Exam: Soft, No Distention Extremities: No Pedal Edema Psy/Mental Status: Alert, Normal Affect - Problem List & Annotations (1) Suicidal ideation SNOMED Code(s): 5502821 Code(s): R45.851 - SUICIDAL IDEATIONS Status: Acute Current Visit: No (2) Acute alcohol intoxication SNOMED Code(s): 95115316 Code(s): F10.929 - ALCOHOL USE, UNSPECIFIED WITH INTOXICATION, UNSPECIFIED Status: Resolved Current Visit: No Qualifiers: Complication of substance-induced condition: uncomplicated Qualified Code(s ): F10.929 - Alcohol use, unspecified with intoxication, unspecified (3) Hypokalemia SNOMED Code(s): 09813478 Code(s): E87.6 - HYPOKALEMIA Status: Acute Current Visit: Yes (4) History of depression SNOMED Code(s): 689314072 Code(s): Z86.59 - PERSONAL HISTORY OF OTHER MENTAL AND BEHAVIORAL DISORDERS Status: Chronic Current Visit: No - Problem List Review Problem List Initiated/Reviewed/Updated: Yes - My Orders Last 24 Hours: My Active Orders 12/09/17 23:35 Resuscitation Status Routine 12/10/17 00:19 Patient Status [ADT] Routine Bedrest Bedside Commode [RC] ASDIRECTED Cardiac Monitoring [RC] CONTINUOUS Intake and Output [RC] QSHIFT Notify Provider Vital Signs [RC] ASDIRECTED Oxygen Therapy [RC] PRN Pulse Oximetry [RC] CONTINUOUS Up With Assistance [RC] ASDIRECTED VTE/DVT Education [RC] Per Unit Routine Vital Signs [RC] Q2H Acetaminophen [Tylenol] 650 mg PO Q4H PRN LORazepam [Ativan] 1 mg IV Q4H PRN Lactated Ringers [Ringers, Lactated] 1,000 ml IV ASDIRECTED Ondansetron [Zofran ODT] 4 mg PO Q6H PRN Ondansetron [Zofran] 4 mg IV Q6H PRN Sequential Compression Device [OM.PC] Per Unit Routine 12/10/17 09:02 Convert IV to Saline Lock [OM.PC] Routine 12/10/17 09:03 DC Goodrich Catheter [Urinary Catheter Removal] [RC] Per Unit Routine 12/10/17 Breakfast Clear Liquid Diet [DIET] - Plan Plan:: ASSESSMENT AND PLAN - Acute alcohol intoxication - patient is sober this morning. She regrets her heavy alcohol use over the past week. She again reports that she was drinking because of pain and depression after breaking up with her boyfriend. She does have a history of heavy and regular alcohol use as well as binge drinking more recently. No evidence for alcohol withdrawal at this time. -Saline lock IV -Monitor for signs of alcohol withdrawal Suicidal ideation - reported to her mother but not endorsed at the time of my evaluation. She does not report any suicidal ideation this morning and does not report any over the past week. She does admit to being depressed and I think there is a definite component of major depression. -Restart home medications once her list has been confirmed -Pulse oximetry -Crisis team evaluation in the morning Hypokalemia - mild and her potassium level is normal after supplementation. Maintenance issues - - DVT prophylaxis - mechanical - GI prophylaxis - not indicated - Nutrition - start clear liquids - Goodrich catheter - placed in the emergency room because of obtundation, will be removed this morning Disposition - I would anticipate discharge either to a psychiatric facility tomorrow or possibly to home today Primary care physician - Bebe Jett M.D.
--- NOTE | 2017-12-10 13:36 | PCM.DCSUM1 ---
Discharge Summary - Hospital Course Brief History: 32-year-old female with history of major depression, previous alcohol dependence and abuse as well as a seizure disorder who presented with severe alcohol intoxication. There was question of possible suicidal ideations at the time of presentation. She was admitted for observation and reassessment. Diagnosis: Stroke: No - Discharge Data Discharge Date: 12/10/17 Discharge Disposition: DC/Tfer to Psych Hosp/Unit 65 Condition: Fair - Discharge Diagnosis/Problem(s) (1) Suicidal ideation SNOMED Code(s): 9025839 ICD Code: R45.851 - SUICIDAL IDEATIONS Status: Acute Current Visit: No (2) Acute alcohol intoxication SNOMED Code(s): 36997521 ICD Code: F10.929 - ALCOHOL USE, UNSPECIFIED WITH INTOXICATION, UNSPECIFIED Status: Resolved Current Visit: No Qualifiers: Complication of substance-induced condition: uncomplicated Qualified Code(s ): F10.929 - Alcohol use, unspecified with intoxication, unspecified (3) Hypokalemia SNOMED Code(s): 67375297 ICD Code: E87.6 - HYPOKALEMIA Status: Acute Current Visit: Yes (4) History of depression SNOMED Code(s): 493774420 ICD Code: Z86.59 - PERSONAL HISTORY OF OTHER MENTAL AND BEHAVIORAL DISORDERS Status: Chronic Current Visit: No - Patient Summary/Data Hospital Course: Kenny presented to the emergency room with severe alcohol intoxication and obtundation. There was also some concern about possible suicide attempt versus suicidal ideations after pill bottles were noted in the vicinity of the patient when she was picked up by paramedics. In the emergency room she was obviously intoxicated and had a very high blood alcohol level. She did not endorse taking any extra pills in an attempt to harm herself. She had reported suicidal ideations to her mother but did not report them to me at the time of admission or discharge. She does admit to being very depressed. She had recently broken up with her boyfriend and was drinking very heavily trying to drink away pain. She was started on IV fluids and admitted to the intensive care unit for close monitoring and a chance to sober up. There were no acute issues overnight. Her potassium was supplemented. The morning after admission she has sobered up. She reports feeling down and depressed but does not endorse suicidal ideations at this time. She was evaluated by the crisis team the morning after admission. They felt that inpatient psychiatric treatments given her history of substance use as well as depression and anxiety she would benefit from inpatient psychiatric treatment. She'll be transferred to [facility] for further treatment. - Patient Instructions Diet: Regular Diet as Tolerated Activity: As Tolerated Showering/Bathing: May Shower Notify Provider of: Fever, Increased Pain, Nausea and/or Vomiting Other/Special Instructions: You were in the hospital for observation after presenting with significant alcohol intoxication. Cause of your severe depression and the heavy alcohol use for self medication I do recommend additional psychiatric treatment. The crisis team has recommended inpatient evaluation and treatment. He'll be transferred to [facility] for further treatment. - Discharge Plan *PRESCRIPTION DRUG MONITORING PROGRAM REVIEWED*: Not Applicable *COPY OF PRESCRIPTION DRUG MONITORING REPORT IN PATIENT KEVIN: Not Applicable Home Medications: Home Meds ClonazePAM [KlonoPIN] 1 mg PO QID PRN 01/08/17 [History] FLUoxetine HCl [Prozac] 40 mg PO BEDTIME 01/08/17 [History] Gabapentin [Neurontin] 300 mg PO BID 01/08/17 [History] Gabapentin [Neurontin] 600 mg PO BEDTIME 01/08/17 [History] Topiramate [Topamax] 50 mg PO BID 01/08/17 [History] lamoTRIgine [Lamictal] 200 mg PO BID 01/08/17 [History] metFORMIN [Glucophage] 1,000 mg PO BIDMEALS 01/08/17 [History] Temazepam 15 - 30 mg PO BEDTIME 07/22/17 [History] Acetaminophen [Tylenol] 650 mg PO Q6H cup 07/28/17 [Rx] Ondansetron [Zofran ODT] 4 mg PO Q4H PRN #30 tab.dis 07/28/17 [Rx] Patient Handouts: Alcohol Use Disorder Referrals: PCP,None [Primary Care Provider] - (follow-up as needed after your hospital stay) - Discharge Summary/Plan Comment DC Time >30 min.: Yes (45 - transfer to psychiatric facility) - Patient Data Vitals - Most Recent: Last Vital Signs Temp 35.7 C 12/10/17 07:00 Pulse 90 12/10/17 12:12 Resp 15 12/10/17 12:12 BP 116/86 12/10/17 12:12 Pulse Ox 100 12/10/17 12:12 Weight - Most Recent: 74.4 kg I&O - Last 24 hours: Intake & Output 12/09/17 12/10/17 12/10/17 22:59 06:59 14:59 Intake Total 570 Output Total 950 350 Balance -380 -350 Lab Results - Last 24 hrs: Laboratory Results - last 24 hr 12/09/17 12/09/17 12/09/17 Range/Units 21:45 21:45 21:45 WBC (4.5-11.0) K/uL RBC (3.30-5.50) M/uL Hgb (12.0-15.0) g/dL Hct (36.0-48.0) % MCV (80-98) fL MCH (27-31) pg MCHC (32-36) % Plt Count (150-400) K/uL Sodium (140-148) mmol/L Potassium (3.6-5.2) mmol/L Chloride (100-108) mmol/L Carbon Dioxide (21-32) mmol/L Anion Gap (5.0-14.0) mmol/L BUN (7-18) mg/dL Creatinine (0.6-1.0) mg/dL Est Cr Clr Drug Dosing mL/min Estimated GFR (MDRD) (>60) Glucose (74-106) mg/dL Calcium (8.5-10.1) mg/dL Magnesium (1.8-2.4) mg/dL Total Bilirubin (0.2-1.0) mg/dL AST (15-37) U/L ALT (12-78) U/L Alkaline Phosphatase (46-116) U/L Total Protein (6.4-8.2) g/dL Albumin (3.4-5.0) g/dL Globulin (2.3-3.5) g/dL Albumin/Globulin Ratio (1.2-2.2) Urine Color Yellow Urine Appearance Clear Urine pH 6.0 (4.5-8.0) Ur Specific Sharon 1.010 (1.008-1.030) Urine Protein Negative (NEGATIVE) mg/dL Urine Glucose (UA) Normal (NEGATIVE) mg/dL Urine Ketones 15 H (NEGATIVE) mg/dL Urine Occult Blood Negative (NEGATIVE) Urine Nitrite Negative (NEGATIVE) Urine Bilirubin Negative (NEGATIVE) Urine Urobilinogen 1 (NORMAL) mg/dL Ur Leukocyte Esterase Negative (NEGATIVE) Urine RBC 0-5 (0-5) Urine WBC 0-5 (0-5) Ur Epithelial Cells Rare Amorphous Sediment Rare Urine Bacteria Rare Urine Mucus Rare Urine HCG, Qual Negative Salicylates (2.0-20.0) mg/dL Urine Opiates Screen Negative (NEGATIVE) Ur Oxycodone Screen Negative (NEGATIVE) Urine Methadone Screen Negative (NEGATIVE) Ur Propoxyphene Screen Negative (NEGATIVE) Acetaminophen (10.0-30.0) ug/mL Ur Barbiturates Screen Negative (NEGATIVE) Ur Tricyclics Screen Negative (NEGATIVE) Ur Phencyclidine Scrn Negative (NEGATIVE) Ur Amphetamine Screen Negative (NEGATIVE) U Methamphetamines Scrn Negative (NEGATIVE) Urine MDMA Screen Negative (NEGATIVE) U Benzodiazepines Scrn Positive H (NEGATIVE) U Cocaine Metab Screen Negative (NEGATIVE) U Marijuana (THC) Screen Negative (NEGATIVE) Ethyl Alcohol mg/dL 12/09/17 12/09/17 12/09/17 Range/Units 21:50 21:50 21:50 WBC 10.7 (4.5-11.0) K/uL RBC 4.58 (3.30-5.50) M/uL Hgb 13.5 (12.0-15.0) g/dL Hct 39.4 (36.0-48.0) % MCV 86 (80-98) fL MCH 30 (27-31) pg MCHC 34 (32-36) % Plt Count 268 (150-400) K/uL Sodium 140 (140-148) mmol/L Potassium 3.2 L (3.6-5.2) mmol/L Chloride 100 (100-108) mmol/L Carbon Dioxide 24 (21-32) mmol/L Anion Gap 19.2 H (5.0-14.0) mmol/L BUN 8 (7-18) mg/dL Creatinine 0.6 (0.6-1.0) mg/dL Est Cr Clr Drug Dosing 129.69 mL/min Estimated GFR (MDRD) > 60 (>60) Glucose 101 (74-106) mg/dL Calcium 8.8 (8.5-10.1) mg/dL Magnesium (1.8-2.4) mg/dL Total Bilirubin 0.4 (0.2-1.0) mg/dL AST 45 H (15-37) U/L ALT 25 (12-78) U/L Alkaline Phosphatase 80 (46-116) U/L Total Protein 6.8 (6.4-8.2) g/dL Albumin 3.3 L (3.4-5.0) g/dL Globulin 3.5 (2.3-3.5) g/dL Albumin/Globulin Ratio 0.9 L (1.2-2.2) Urine Color Urine Appearance Urine pH (4.5-8.0) Ur Specific Sharon (1.008-1.030) Urine Protein (NEGATIVE) mg/dL Urine Glucose (UA) (NEGATIVE) mg/dL Urine Ketones (NEGATIVE) mg/dL Urine Occult Blood (NEGATIVE) Urine Nitrite (NEGATIVE) Urine Bilirubin (NEGATIVE) Urine Urobilinogen (NORMAL) mg/dL Ur Leukocyte Esterase (NEGATIVE) Urine RBC (0-5) Urine WBC (0-5) Ur Epithelial Cells Amorphous Sediment Urine Bacteria Urine Mucus Urine HCG, Qual Salicylates (2.0-20.0) mg/dL Urine Opiates Screen (NEGATIVE) Ur Oxycodone Screen (NEGATIVE) Urine Methadone Screen (NEGATIVE) Ur Propoxyphene Screen (NEGATIVE) Acetaminophen (10.0-30.0) ug/mL Ur Barbiturates Screen (NEGATIVE) Ur Tricyclics Screen (NEGATIVE) Ur Phencyclidine Scrn (NEGATIVE) Ur Amphetamine Screen (NEGATIVE) U Methamphetamines Scrn (NEGATIVE) Urine MDMA Screen (NEGATIVE) U Benzodiazepines Scrn (NEGATIVE) U Cocaine Metab Screen (NEGATIVE) U Marijuana (THC) Screen (NEGATIVE) Ethyl Alcohol 461 mg/dL 12/09/17 12/09/17 12/09/17 Range/Units 22:19 22:19 22:20 WBC (4.5-11.0) K/uL RBC (3.30-5.50) M/uL Hgb (12.0-15.0) g/dL Hct (36.0-48.0) % MCV (80-98) fL MCH (27-31) pg MCHC (32-36) % Plt Count (150-400) K/uL Sodium (140-148) mmol/L Potassium (3.6-5.2) mmol/L Chloride (100-108) mmol/L Carbon Dioxide (21-32) mmol/L Anion Gap (5.0-14.0) mmol/L BUN (7-18) mg/dL Creatinine (0.6-1.0) mg/dL Est Cr Clr Drug Dosing mL/min Estimated GFR (MDRD) (>60) Glucose (74-106) mg/dL Calcium (8.5-10.1) mg/dL Magnesium 1.9 (1.8-2.4) mg/dL Total Bilirubin (0.2-1.0) mg/dL AST (15-37) U/L ALT (12-78) U/L Alkaline Phosphatase (46-116) U/L Total Protein (6.4-8.2) g/dL Albumin (3.4-5.0) g/dL Globulin (2.3-3.5) g/dL Albumin/Globulin Ratio (1.2-2.2) Urine Color Urine Appearance Urine pH (4.5-8.0) Ur Specific Sharon (1.008-1.030) Urine Protein (NEGATIVE) mg/dL Urine Glucose (UA) (NEGATIVE) mg/dL Urine Ketones (NEGATIVE) mg/dL Urine Occult Blood (NEGATIVE) Urine Nitrite (NEGATIVE) Urine Bilirubin (NEGATIVE) Urine Urobilinogen (NORMAL) mg/dL Ur Leukocyte Esterase (NEGATIVE) Urine RBC (0-5) Urine WBC (0-5) Ur Epithelial Cells Amorphous Sediment Urine Bacteria Urine Mucus Urine HCG, Qual Salicylates 6.1 (2.0-20.0) mg/dL Urine Opiates Screen (NEGATIVE) Ur Oxycodone Screen (NEGATIVE) Urine Methadone Screen (NEGATIVE) Ur Propoxyphene Screen (NEGATIVE) Acetaminophen < 2.0 L (10.0-30.0) ug/mL Ur Barbiturates Screen (NEGATIVE) Ur Tricyclics Screen (NEGATIVE) Ur Phencyclidine Scrn (NEGATIVE) Ur Amphetamine Screen (NEGATIVE) U Methamphetamines Scrn (NEGATIVE) Urine MDMA Screen (NEGATIVE) U Benzodiazepines Scrn (NEGATIVE) U Cocaine Metab Screen (NEGATIVE) U Marijuana (THC) Screen (NEGATIVE) Ethyl Alcohol mg/dL 12/10/17 12/10/17 Range/Units 05:45 05:45 WBC 7.0 (4.5-11.0) K/uL RBC 3.73 (3.30-5.50) M/uL Hgb 11.2 L D (12.0-15.0) g/dL Hct 32.6 L (36.0-48.0) % MCV 87 (80-98) fL MCH 30 (27-31) pg MCHC 34 (32-36) % Plt Count 206 (150-400) K/uL Sodium 141 (140-148) mmol/L Potassium 3.7 (3.6-5.2) mmol/L Chloride 103 (100-108) mmol/L Carbon Dioxide 27 (21-32) mmol/L Anion Gap 11.0 (5.0-14.0) mmol/L BUN 6 L (7-18) mg/dL Creatinine 0.5 L (0.6-1.0) mg/dL Est Cr Clr Drug Dosing 155.21 mL/min Estimated GFR (MDRD) > 60 (>60) Glucose 80 (74-106) mg/dL Calcium 8.1 L (8.5-10.1) mg/dL Magnesium (1.8-2.4) mg/dL Total Bilirubin 0.4 (0.2-1.0) mg/dL AST 39 H (15-37) U/L ALT 22 (12-78) U/L Alkaline Phosphatase 64 (46-116) U/L Total Protein 5.2 L (6.4-8.2) g/dL Albumin 2.5 L (3.4-5.0) g/dL Globulin 2.7 (2.3-3.5) g/dL Albumin/Globulin Ratio 0.9 L (1.2-2.2) Urine Color Urine Appearance Urine pH (4.5-8.0) Ur Specific Sharon (1.008-1.030) Urine Protein (NEGATIVE) mg/dL Urine Glucose (UA) (NEGATIVE) mg/dL Urine Ketones (NEGATIVE) mg/dL Urine Occult Blood (NEGATIVE) Urine Nitrite (NEGATIVE) Urine Bilirubin (NEGATIVE) Urine Urobilinogen (NORMAL) mg/dL Ur Leukocyte Esterase (NEGATIVE) Urine RBC (0-5) Urine WBC (0-5) Ur Epithelial Cells Amorphous Sediment Urine Bacteria Urine Mucus Urine HCG, Qual Salicylates (2.0-20.0) mg/dL Urine Opiates Screen (NEGATIVE) Ur Oxycodone Screen (NEGATIVE) Urine Methadone Screen (NEGATIVE) Ur Propoxyphene Screen (NEGATIVE) Acetaminophen (10.0-30.0) ug/mL Ur Barbiturates Screen (NEGATIVE) Ur Tricyclics Screen (NEGATIVE) Ur Phencyclidine Scrn (NEGATIVE) Ur Amphetamine Screen (NEGATIVE) U Methamphetamines Scrn (NEGATIVE) Urine MDMA Screen (NEGATIVE) U Benzodiazepines Scrn (NEGATIVE) U Cocaine Metab Screen (NEGATIVE) U Marijuana (THC) Screen (NEGATIVE) Ethyl Alcohol mg/dL Med Orders - Current: Current Medications Acetaminophen (Tylenol) 650 mg PO Q4H PRN PRN Reason: Pain (Mild 1-3)/fever Lactated Ringer's (Ringers, Lactated) 1,000 mls @ 125 mls/hr IV ASDIRECTED CORINE Last Admin: 12/10/17 01:05 Dose: 125 mls/hr Lorazepam (Ativan) 1 mg IV Q4H PRN PRN Reason: Anxiety Last Admin: 12/10/17 11:49 Dose: 1 mg Ondansetron HCl (Zofran Odt) 4 mg PO Q6H PRN PRN Reason: Nausea able to take PO Ondansetron HCl (Zofran) 4 mg IV Q6H PRN PRN Reason: Nausea/Vomiting Last Admin: 12/10/17 08:12 Dose: 4 mg Discontinued Medications Lactated Ringer's (Ringers, Lactated) 1,000 mls @ 1,000 mls/hr IV BOLUS ONE Stop: 12/09/17 22:43 Last Admin: 12/09/17 21:57 Dose: 1,000 mls/hr Potassium Chloride 20 meq/ (Premix) 100 mls @ 50 mls/hr IV ONETIME ONE Stop: 12/10/17 00:16 Last Admin: 12/09/17 22:34 Dose: 50 mls/hr Lactated Ringer's (Ringers, Lactated) 1,000 mls @ 500 mls/hr IV ASDIRECTED [facility] Stop: 12/10/17 00:19 Last Admin: 12/09/17 22:54 Dose: 500 mls/hr - Exam Quality Assessment: Denies: Supplemental Oxygen General: Reports: Alert, Oriented, Cooperative, No Acute Distress Lungs: Reports: Normal Respiratory Effort Cardiovascular: Reports: Regular Rate, Regular Rhythm GI/Abdominal Exam: Soft, No Distention Extremities: No Pedal Edema Psy/Mental Status: Reports: Alert, Normal Affect
== END 2017-12-10 14:06 ==
LOC: JP.ED 21:10 → JP.ICU 23:34
PROVIDERS: ADMIT Internal Medicine; ATTEND Internal Medicine
DX: F10.929 Alcohol use, unspecified with intoxication, unspecified (principal); Y90.8 Blood alcohol level of 240 mg/100 ml or more; R45.851 Suicidal ideations; E87.6 Hypokalemia; E11.9 Type 2 diabetes mellitus without complications; F17.210 Nicotine dependence, cigarettes, uncomplicated; F41.9 Anxiety disorder, unspecified; F32.9 Major depressive disorder, single episode, unspecified; Z86.59 Personal history of other mental and behavioral disorders; Z79.84 Long term (current) use of oral hypoglycemic drugs; Z79.899 Other long term (current) drug therapy; Z88.5 Allergy status to narcotic agent; Z88.8 Allergy status to other drugs, medicaments and biological substances
CPT/HCPCS: 36415; 51702; 80053; 80305; 81001; 81025; 83735; 85027; 96361; 96365; 99217; 99219; 99285; G0480; J2060; J2405; J3480; J7120